=== PATIENT | male | born 1935 | race Caucasian/White ===

== ENCOUNTER 2023-09-16 09:38 | Emergency (ER) | payer OTHER, SELFPAY ==
[2023-09-16 10:03] VITALS: BP 120/75; PULSE 84; RESP 18; TEMP 36.4; O2SAT 97; BMI 32.3
--- NOTE | 2023-09-16 11:05 | ED_ITS ---
HPI - General Adult General Date Seen: 09/16/23 Chief complaint: Cough Stated complaint: Cough-runny nose-sinus headache Time Seen by Provider: 09/16/23 10:02 Source: patient and family Mode of arrival: ambulatory Limitations: no limitations History of Present Illness HPI narrative: Patient is a 88-year-old gentleman who presents ambulatory to the emergency room, with a history of a cough for the last 2-3 days, he has a history of sinusitis, he notes that is right nares drain some clear fluid, this morning. He did have a little bit of blood with that he felt that he had a bit of a sinus headache on the right side, he has not no fevers no chills, he denies any neck pain or stiffness nausea vomiting, or any significant short of breath, did get his him normal immunization series for COVID, but he has not gotten the flu vaccine because of history of [place] barre . Not been taking any [id number] medications, but does have a long history of sinus issues. Dizzy usually gets antibiotics for this, is a [facility], lives in [place] History what sounds like atrial fibrillation, previous cardioversion, psoriasis, previous pituitary adenoma. Diabetes hypertension hyperlipidemia. Appendectomy Related Data Home Medications Medication Instructions Recorded Confirmed Vitamin D 09/16/23 amiodarone 09/16/23 amlodipine 09/16/23 apixaban 09/16/23 atorvastatin 09/16/23 gabapentin 09/16/23 lisinopril 09/16/23 multivitamin 09/16/23 omeprazole 09/16/23 tamsulosin 09/16/23 Allergies Allergy/AdvReac Type Severity Reaction Status Date / Time penicillin G procaine Allergy Mild Rash Verified 09/16/23 10:03 Review of Systems Status of ROS: Reports: 10 or more systems reviewed and unremarkable except as noted in History and below PFSH PFS Social History Smoking Status: Never smoker Non-prescribed substance use: denies use Exam Narrative: Exam Narrative: Patient is seen in room 4, he is in no apparent distress he has normal vital signs. Speaking to me normally pupils equal round reactive to light, there is no scleral icterus redness, nasal mucosa he has a bit of a deviated septum to the right. TMs are normal, oropharynx normal easy respirations chest is clear bilaterally no wheezing crackles noted heart sounds are normal clicks murmurs or gallops, abdomen is soft and obese, he moves all extremities independently well there is no evidence of any rashes, neurologically intact in his upper lower extremities. Const: Vital Signs, click to edit/add: Vital Signs - 24 hr 09/16/23 10:03 09/16/23 12:01 Temperature 97.6 F Pulse Rate [Pulse Oximeter] 84 80 Respiratory Rate 18 18 Blood Pressure [Ri ght Upper Arm] 120/75 Pulse Oximetry 97 97 Oxygen Delivery Me thod Room Air Documenting provider has reviewed patient's vital signs: yes Course Course ED Course: His COVID swab came back positive unfortunately is not a candidate for paxlovid as he has a hard stop with the amiodarone, I discussed with him, at this point he does not want antibiotics, he will just use symptomatic management, knowing that he is positive, for the next 5 days. We went over risks of having COVID, when he should watch out for, he will need to be followed up if you develops shortness of breath, chest pain, leg swelling, or signs of a blood clot also. I think this is unlikely given he is already on apixaban. Vital Signs Vital signs: Initial Vital Signs Respiratory Effort Normal 09/16/23 10:02 Respiratory Depth Normal 09/16/23 10:02 Vital Signs Temperature 97.6 F 09/16/23 10:03 Pulse Rate 84 09/16/23 10:03 Respiratory Rate 18 09/16/23 10:03 Blood Pressure 120/75 09/16/23 10:03 Pulse Oximetry 97 09/16/23 10:03 Oxygen Delivery Method Room Air 09/16/23 10:03 Temperature 97.6 F 09/16/23 10:03 Pulse Rate 80 09/16/23 12:01 Respiratory Rate 18 09/16/23 12:01 Blood Pressure 120/75 09/16/23 10:03 Pulse Oximetry 97 09/16/23 12:01 Oxygen Delivery Method Room Air 09/16/23 10:03 Medical Decision Making [facility] Narrative Medical decision making narrative: Differential diagnosis include a viral upper respiratory illness, histoplasmosis, tuberculosis, pneumonia, COPD exacerbation, emphysema, strep throat illness, bronchitis, asthma, reactive airway disease, chronic cough, medication side effects, allergic rhinitis with postnasal drip, foreign body aspiration, aspiration pneumonia, bronchiolitis, and gastroesophageal reflux disease as well as multiple other considerations. Lab Data Labs: Lab Results 09/16/23 Range/Units 10:12 SARS-CoV-2 (PCR) POSITIVE SARS-CoV-2 A (Negative) Influenza Type A (PCR) Negative PCR FLU A (Negative) Influenza Type B (PCR) Negative PCR FLU B (Negative) RSV (PCR) Negative PCR RSV (Negative) Discharge Plan Discharge Clinical Impression: COVID-19 Patient Disposition: Home, Self-Care Condition: Stable Instructions: COVID-19 (Coronavirus Disease 2019) (ED), COVID-19: Slow the Coronavirus Spread (ED), Face Coverings (Masks) and COVID-19 (ED), How to Recover from COVID-19 at Home (ED), Social Distancing Guidelines for COVID-19 (ED) Additional Instructions: Home rest use of nasal spray, saline Mets, follow-up with primary care if ongoing symptoms, I would suggest following your oxygen saturation, you may buy one of these units, they are approximately 30 dollars ,and come back in if your having low readings less than 90% Activity Level: Light activity Prescriptions: No Action gabapentin atorvastatin amlodipine lisinopril tamsulosin omeprazole amiodarone multivitamin Vitamin D apixaban Follow Up/Referrals: Provider,Not a Local [Primary Care Provider] - Stand Alone Forms: URBANARAth Info Instructions
[2023-09-16 11:10] LABS: PCR FLU A Negative PCR FLU A (Negative); PCR FLU B Negative PCR FLU B (Negative); PCR RSV Negative PCR RSV (Negative); SARS PCR* POSITIVE SARS-CoV-2 (Negative)
[2023-09-16 12:01] VITALS: PULSE 80; RESP 18; O2SAT 97
== END 2023-09-16 13:37 | disposition home or self-care (01) ==
PROVIDERS: Emergency Provider Family Medicine
DX: U07.1 COVID-19 (principal)
CPT/HCPCS: 87631; 99283; 99284

== ENCOUNTER 2024-10-03 11:04 | Emergency (ER) | payer OTHER, SELFPAY ==
[2024-10-03 11:08] VITALS: BP 152/84; PULSE 82; RESP 16; TEMP 36.4; O2SAT 100; BMI 29.2
--- NOTE | 2024-10-03 11:20 | ED.ABDPAIN ---
HPI - Abdominal Pain General Chief Complaint: Abdominal Pain Stated Complaint: Feeling unwell Time Seen by Provider: 10/03/24 11:09 Source: patient, family, RN notes reviewed and old records reviewed Mode of arrival: ambulatory Limitations: no limitations History of Present Illness HPI narrative: 89-year-old male with history of diabetes, atrial fibrillation on anticoagulation who comes in today with abdominal bloating, nausea. Noted that night before last he develops nausea, bloating sensation and felt constipated. No vomiting denies pain but did have sensation of abdominal fullness. He reports having diarrhea all day yesterday, that has resolved. Continued to have nausea overnight and abdominal fullness and decided to come to the emergency department that. Also notes that his son and [id number] live in the house and they are not getting along well, he feels like he is depressed but denies suicide ideation. Has not taken his medications for couple of days because of his nausea. Related Data Home Medications ?Medication ?Instructions ?Recorded ?Confirmed Vitamin D 50 mcg PO 09/16/23 amiodarone 200 mg PO DAILY 09/16/23 10/03/24 amlodipine 10 mg PO DAILY 09/16/23 10/03/24 apixaban 2.5 mg PO .q12 09/16/23 10/03/24 gabapentin 400 mg PO BID 09/16/23 10/03/24 lisinopril 20 mg PO DAILY 09/16/23 10/03/24 multivitamin 09/16/23 tamsulosin 0.4 mg PO DAILY 09/16/23 10/03/24 coenzyme Q10 100 mg capsule 200 mg PO DAILY 10/03/24 10/03/24 (CoQ-10) Allergies Allergy/AdvReac Type Severity Reaction Status Date / Time penicillin G procaine Allergy Mild Rash Verified 10/03/24 12:54 [facility] Social History Smoking Status: Never smoker Non-prescribed substance use: denies use Exam Narrative: Exam Narrative: General: Well-developed and well-nourished, no acute distress Head: Atraumatic and normocephalic Eyes: Pupils are equal reactive, extraocular motions intact, conjunctiva clear ENT: External nose and ears are normal, posterior pharynx without erythema or exudate Neck: No midline cervical tenderness, full spontaneous range of motion the neck, trachea midline, no adenopathy Heart: Regular rate and rhythm, 3/6 systolic murmur Lungs: Clear to auscultation bilaterally without wheezes or crackles Abdomen: Soft, nontender, nondistended with active bowel sounds Musculoskeletal: No tenderness, deformity, or edema Neurologic: Awake, alert, and oriented x3, no gross focal neurologic deficits, cranial nerves intact as tested Psych: Mood and affect are appropriate Skin: No rashes Const: Vital Signs, click to edit/add: Vital Signs - 24 hr 10/03/24 11:08 Temperature 97.6 F Pulse Rate [Pulse Oximeter] 82 Respiratory Rate 16 Blood Pressure [Ri ght Upper Arm] 152/84 H Pulse Oximetry 100 Oxygen Delivery Me thod Room Air Course Course ED Course: Reviewed prior emergency department records from this facility from September 2023 when patient was diagnose COVID-19, otherwise possibly of medical records for this patient in both the [facility] and [facility]. Patient presents today with couple days of nausea, also had some diarrhea although that is resolved, and abdominal fullness. On exam, vital a stable with no abdominal tenderness, hyperactive bowel sounds. Suspect enteritis but cannot completely exclude other intra-abdominal process including colitis or diverticulitis. Labs ordered along with CT scan of the abdomen and pelvis. Reevaluation(s) Time of Reevaluation #1: 13:22 Reevaluation #1: Labs ordered and independently interpreted by me with mild anemia hemoglobin 13.3 but otherwise normal CBC with no leukocytosis, normal basic panel, normal hepatic panel, normal lipase, urinalysis negative, respiratory panel negative. CT of the abdomen pelvis and panel interpreted by me demonstrates gallstones, without evidence of biliary obstruction or acute cholecystitis, no other acute findings in the abdomen. Patient is stable for discharge with Zofran, close follow-up with primary care and with general surgery. Discussed symptom management and dietary recommendations. Vital Signs Vital signs: Initial Vital Signs Temperature 97.6 F 10/03/24 11:08 Temperature Source Temporal Artery Scan 10/03/24 11:08 Pulse Rate 82 10/03/24 11:08 Respiratory Rate 16 10/03/24 11:08 Blood Pressure 152/84 H 10/03/24 11:08 Blood Pressure Mean 106 H 10/03/24 11:08 Blood Pressure Position Sitting 10/03/24 11:08 Pulse Oximetry 100 10/03/24 11:08 Oxygen Delivery Method Room Air 10/03/24 11:08 Vital Signs Temperature 97.6 F 10/03/24 11:08 Pulse Rate 82 10/03/24 11:08 Respiratory Rate 16 10/03/24 11:08 Blood Pressure 152/84 H 10/03/24 11:08 Pulse Oximetry 100 10/03/24 11:08 Oxygen Delivery Method Room Air 10/03/24 11:08 Temperature 97.6 F 10/03/24 11:08 Pulse Rate 82 10/03/24 11:08 Respiratory Rate 16 10/03/24 11:08 Blood Pressure 152/84 H 10/03/24 11:08 Pulse Oximetry 100 10/03/24 11:08 Oxygen Delivery Method Room Air 10/03/24 11:08 Medications Administered Medications: Discontinued Medications Generic Name Dose Route Start Last Admin Trade Name Freq PRN Reason Stop Dose Admin Ondansetron HCl 4 mg 10/03/24 11:35 10/03/24 12:08 Ondansetron 2 Mg/Ml Inj IVP 10/03/24 11:36 4 mg ONCE ONE Administration MDM - Abdominal Pain Lab Data Labs: Lab Results 10/03/24 10/03/24 Range/Units 11:55 12:20 WBC 5.44 (4.50-11.00) K/uL RBC 4.24 L (4.30-5.90) m/uL Hgb 13.3 L (13.5-17.5) gm/dL Hct 40.9 (37.0-53.0) % MCV 97 (80-100) fL MCH 31 (26-34) pg MCHC 33 (32-36) gm/dL RDW Coeff of Simon 13.0 (11.5-15.5) % Plt Count 160 (140-440) K/uL Neut % (Auto) 58.4 (42.0-72.0) % Lymph % (Auto) 26.5 (20-44) % [place] % (Auto) 9.9 (0.0-11.0) % Eos % (Auto) 4.4 (0.0-7.0) % Baso % (Auto) 0.6 (0.0-3.0) % Neut # (Auto) 3.18 (1.7-7.0) K/uL Lymph # (Auto) 1.44 (0.90-2.90) K/uL [place] # (Auto) 0.50 (0.00-0.90) K/UL Eos # (Auto) 0.24 (0.00-0.50) K/uL Baso # (Auto) 0.03 (0.00-0.30) K/uL Abs Immat Gran (auto) 0.01 (0.00-0.30) K/uL Imm/Tot Granulo (auto) 0.2 % Sodium 138 (135-149) mmol/L Potassium 4.0 (3.6-5.1) mmol/L Chloride 104 (96-114) mmol/L Carbon Dioxide 28 (20-32) mmol/L Anion Gap 6 L (7-15) mEq/L BUN 19 (7-30) mg/dL Creatinine 1.5 (0.5-1.5) mg/dL Estimated Creat Clear 33.57 Estimated GFR 45 ml/min Glucose 114 (60-115) mg/dL Calcium 9.1 (8.4-10.6) mg/dL Magnesium 1.8 (1.5-2.6) mg/dL Total Bilirubin 1.1 (0.1-1.5) mg/dL Direct Bilirubin 0.3 (0.0-0.5) mg/dL AST 36 H (12-35) U/L ALT 49 (4-50) U/L Alkaline Phosphatase 87 (40-150) U/L Total Protein 6.9 (6.0-8.3) g/dL Albumin 4.2 (3.3-5.0) g/dL Lipase 51 (23-300) U/L Urine Color Yellow (Yellow) Urine Appearance Clear (Clear) Urine pH 6.5 (5.0-8.5) Ur Specific [place] 1.025 (1.000-1.030) Urine Protein Negative (Negative) Urine Glucose (UA) Negative (Negative) Urine Ketones Negative (Negative) Urine Blood Negative (Negative) Urine Nitrite Negative (Negative) Urine Bilirubin Negative (Negative) Urine Urobilinogen 0.2 (0.2-1.0) Ur Leukocyte Esterase Negative (Negative) Urine RBC 0-2 (0-2) Urine WBC 0-2 (0-5) Ur Squamous Epith Cells None (None-Few) Urine Bacteria None (None) SARS-CoV-2 (PCR) Negative SARS-CoV-2 (Negative) Influenza Type A (PCR) Negative PCR FLU A (Negative) Influenza Type B (PCR) Negative PCR FLU B (Negative) RSV (PCR) Negative PCR RSV (Negative) Discharge Plan Discharge Clinical Impression: Nausea, Abdominal pain, Cholelithiasis, Cirrhosis Patient Disposition: Home, Self-Care Condition: Stable Instructions: Cirrhosis of the Liver (ED), Biliary Colic (ED), Gallstones (ED), Acute Nausea and Vomiting (DC) Additional Instructions: Take medication for nausea as prescribed Liquid diet for 24 hours, then advance as tolerated, avoid fats and oils Follow-up with your primary care doctor in 3-5 days Follow-up with general surgeon to discuss possible gallbladder removal. You can do this through the [place] or at [facility]. [facility]:? [facility]:? [facility]:? [facility]:? Activity Level: Activity as Tolerated Discharge Diet: Full Liquid Prescriptions: No Action gabapentin 400 mg PO BID amlodipine 10 mg PO DAILY lisinopril 20 mg PO DAILY tamsulosin 0.4 mg PO DAILY amiodarone 200 mg PO DAILY multivitamin Vitamin D 50 mcg PO apixaban 2.5 mg PO .q12 coenzyme Q10 [CoQ-10] 100 mg capsule 200 mg PO DAILY Follow Up/Referrals: Provider,Not a Local [Primary Care Provider] - Stand Alone Forms: [place] [employer] Info Instructions
--- NOTE | 2024-10-03 11:35 | CRLHL7_ITS ---
For Patients: As a result of the 21st Century Cures Act, medical imaging exams and procedure reports are released immediately into your electronic medical record. You may view this report before your referring provider. If you have questions, please contact your health care provider. INDICATION: Abdominal pain, not otherwise described. Associated nausea and diarrhea. COMPARISON: None available. TECHNIQUE: CT of the abdomen and pelvis with 94 cc of Isovue 370 intravenous contrast. Please note that all CT scans at this facility use dose modulation, iterative reconstruction, and/or weight-based dosing when appropriate to reduce radiation dose to as low as reasonably achievable. FINDINGS: ABDOMEN Liver: Nodular contour. Prominent caudate lobe. Normal attenuation. Too small to characterize hypodense lesion at the border zone between segments 7 and 8 (series 2; image 33) statistically likely to represent a cyst. No intrahepatic biliary ductal dilatation. Mildly enlarged main portal vein at 16 mm. Patent portal veins. Patent hepatic veins. Gallbladder: Cholelithiasis. No pericholecystic inflammatory changes. Normal common duct caliber. Pancreas: Normal contour and attenuation. No peripancreatic inflammatory changes. No significant focal lesion. Normal main duct caliber. Spleen: Craniocaudad length of the spleen is 12.9 cm consistent with borderline splenomegaly. No significant focal lesion. Patent splenic artery and vein. Adrenal Glands: Symmetrical adrenal glands. No significant focal lesion. Kidneys: Normal bilateral renal attenuation. No significant focal lesion. 11 mm nephrolith in the left renal pelvis (2; 60). No dilatation of the intrarenal collecting systems. No ureteral stone. Nondilated ureters. Patent renal arteries and veins. Gastrointestinal tract: Normal caliber, attenuation and wall thickness of the gastrointestinal tract. Sigmoid diverticulosis without associated inflammatory changes. Unseen appendix without signs of acute appendicitis. Vascular: Chronic aortoiliac atherosclerotic mural calcification. Abdominal aorta and its major proximal branches including the celiac, superior mesenteric, inferior mesenteric, renal, and bilateral common iliac arteries are patent. Patent superior mesenteric vein. Peritoneal Cavity/Retroperitoneum: No ascites. No adenopathy. PELVIS No bladder lesion is identified. The prostate measures 73 mL. No significant ascites. No adenopathy. SKELETON AND BODY WALL Bilateral anterior abdominal wall subcutaneous fat stranding below the level of the umbilicus most likely related to subcutaneously administered injections, for example (series 2; image 118). Please correlate with the patient`s clinical history. Chronic multilevel thoracolumbar spondylosis. L4 anterior superior vertebral body Schmorl`s node. LOWER THORAX Peripheral bilateral posterior basilar segment lower lobe subsegmental bronchiectasis. Nonspecific bibasilar multilobar subpleural reticulation consistent with nonspecific minor fibrosis. Moderate proximal left anterior descending atherosclerotic coronary artery calcification. Small sliding hiatus hernia. IMPRESSION: 1. Nodular liver contour consistent with cirrhosis. Borderline splenomegaly. Mildly enlarged main portal vein. The latter findings are consistent with portal venous hypertension. 2. Cholelithiasis without associated acute inflammatory findings to indicate acute cholecystitis. 3. Sigmoid diverticulosis without associated inflammatory changes. 4. Incidental findings as above. 5. Prostatomegaly. Please note that all CT scans at this facility use dose modulation, iterative reconstruction, and/or weight-based dosing when appropriate to reduce radiation dose to as low as reasonably achievable. Dictated by Dallas eMndosa MD @ 10/03/2024 1:25:15 PM (Electronically Signed)
[2024-10-03 12:03] LABS: Basophils Absolute Auto 0.03 K/uL (0.00-0.30); Basophils Percent Auto 0.6 % (0.0-3.0); Eosinophils Absolute Auto 0.24 K/uL (0.00-0.50); Eosinophils Percent Auto 4.4 % (0.0-7.0); Hematocrit 40.9 % (37.0-53.0); Hemoglobin* 13.3 gm/dL (13.5-17.5); Immature Granulocytes Abs Auto 0.01 K/uL (0.00-0.30); Immature Granulocytes Pct Auto 0.2 %; Lymphocytes Absolute Auto 1.44 K/uL (0.90-2.90); Lymphocytes Percent Auto 26.5 % (20-44); Mean Corpuscular HGB Conc 33 gm/dL (32-36); Mean Corpuscular Hemoglobin 31 pg (26-34); Mean Corpuscular Volume 97 fL (80-100); Monocytes Percent Auto 9.9 % (0.0-11.0); Neutrophils Absolute Auto 3.18 K/uL (1.7-7.0); Neutrophils Percent Auto 58.4 % (42.0-72.0); Platelet Count* 160 K/uL (140-440); Red Blood Count 4.24 m/uL (4.30-5.90); White Blood Count* 5.44 K/uL (4.50-11.00)
[2024-10-03] MEDS: ONDANSETRON 2 MG/ML inj 4 MG IVP (12:08)
[2024-10-03 12:18] LABS: Albumin* 4.2 g/dL (3.3-5.0); Chloride* 104 mmol/L (96-114); Sodium* 138 mmol/L (135-149)
[2024-10-03 12:20] LABS: Anion Gap 6 mEq/L (7-15); Carbon Dioxide* 28 mmol/L (20-32); Creatinine* 1.5 mg/dL (0.5-1.5); Est. Creatinine Clearance* 33.57; Estimated Glomerular Filt Rate 45 ml/min
[2024-10-03 12:21] LABS: Alanine Aminotransferase* 49 U/L (4-50); Alkaline Phosphatase* 87 U/L (40-150); Aspartate Amino Transferase* 36 U/L (12-35); Bilirubin Direct* 0.3 mg/dL (0.0-0.5); Bilirubin Total* 1.1 mg/dL (0.1-1.5); Blood Urea Nitrogen* 19 mg/dL (7-30); Calcium* 9.1 mg/dL (8.4-10.6); Glucose* 114 mg/dL (60-115); Lipase* 51 U/L (23-300); Magnesium* 1.8 mg/dL (1.5-2.6); Total Protein* 6.9 g/dL (6.0-8.3)
[2024-10-03 12:23] LABS: Slide Review Reflex No
[2024-10-03 12:29] LABS: Appearance Urine Clear (Clear); Bilirubin Urine Negative (Negative); Blood Urine Negative (Negative); Color Urine Yellow (Yellow); Glucose Urine Negative (Negative); Ketones Urine Negative (Negative); Leukocyte Esterase Urine Negative (Negative); Nitrite Urine Negative (Negative); Protein Urine Negative (Negative); Specific Gravity Urine 1.025 (1.000-1.030); Urobilinogen Urine 0.2 (0.2-1.0); pH Urine 6.5 (5.0-8.5)
[2024-10-03 12:42] LABS: PCR FLU A Negative PCR FLU A (Negative); PCR FLU B Negative PCR FLU B (Negative); PCR RSV Negative PCR RSV (Negative); SARS PCR* Negative SARS-CoV-2 (Negative)
[2024-10-03 12:59] LABS: RBC Urine 0-2 (0-2); WBC Urine 0-2 (0-5)
== END 2024-10-03 14:35 | disposition home or self-care (01) ==
PROVIDERS: Emergency Provider Family Medicine
DX: R11.0 Nausea (principal); R10.9 Unspecified abdominal pain; K80.20 Calculus of gallbladder without cholecystitis without obstruction; K74.60 Unspecified cirrhosis of liver
CPT/HCPCS: 36415; 74177; 80048; 80076; 81001; 83690; 83735; 85025; 87631; 96374; 99284; 99285; J2405; Q9967

== ENCOUNTER 2025-04-22 10:49 | Emergency (ER) | payer OTHER, SELFPAY ==
--- OUTSIDE RECORDS SUMMARY | 2024-05-05 08:20 | XMS_ITS | Encounter Summary ---
Author Name [facility] [place] [facility] [place] [facility] [facility] [place] Address [address] [place] [address] Care Team Providers Care Examination Scorer Name Role Phone EUDIN SLATER Primary Care Provider BOBBY Bernabe Unavailable Unavailable Insurance Providers: All historical and current Section Date Range: From patient's date of to the date document was created. This section includes the names of all active insurance providers for the patient. Insurance Provider Type of Coverage Plan Name Start of Policy Coverage End of Policy Coverage Group Number Member ID Insurance Provider's Telephone Number Policy Jolley's Name Patient's Relationship to Policy Jolley MEDICARE (WNR) MEDICARE ([place]) PART B Feb 14, 2002 PART B [id number] [phone] KRISTAMAGY ERT PATIENT MEDICARE (WNR) MEDICARE (M) PART B Feb 14, 2002 PART B [id number] [phone] KRISTAMAGY ERT PATIENT MEDICARE (WNR) MEDICARE (M) PART A Feb 15, 1992 PART A [id number] [phone] KRISTAMAGY ERT PATIENT MEDICARE (WNR) MEDICARE (M) PART A Feb 15, 1992 PART A [id number] [phone] KRISTA,MAGY ERT PATIENT Selected Encounter This section includes the information on record at [place] for the Encounter. Date/Time Encounter Type Encounter Description Reason Provider Source May 05, 2024 01:20 PM OFFICE O/P EST HI 40 MIN CARDIOLOGY ICD-10-CM I48.0 Paroxysmal atrial fibrillation OLIVERIOA R,Y S IHE Encounter Template Text not used by [place] Assessments - Encounter Diagnoses This section includes the primary and secondary diagnoses documented for the Encounter. Date/Time Primary/Secondary Diagnosis Diagnosis Name Provider Source May 05, 2024 01:44 PM PRIMARY Paroxysmal atrial fibrillation OLIVERIOA R,Y S [facility] May 05, 2024 01:44 PM SECONDARY Essential (primary) hypertension OLIVERIOA R,Y S [facility] May 05, 2024 01:44 PM SECONDARY Morbid (severe) obesity due to excess calories [facility] May 05, 2024 01:44 PM SECONDARY Type 2 diabetes mellitus with hyperglycemia [facility] Plan of Treatment: Future Appointments (+ 6 months) and Future Tests (+/- 45 days) The Plan of Treatment section includes future care activities for the [facility] [place] [facility] This section includes future appointments and future orders which are active, pending or scheduled. Future Appointments This section includes appointments that were scheduled to occur 6 months from the date of the Encounter, up to a maximum of 20 appointments. The data comes from all [place] treatment facilities. Appointment Date/Time Appointment Type Appointme nt Facility Name Jun 02, 2024 10:40 AM AMBULATORY - NONE [facility] Jun 09, 2024 10:45 AM AMBULATORY - SURGERY [facility] Jun 09, 2024 12:15 PM AMBULATORY - MEDICINE [facility] Jun 11, 2024 10:00 AM AMBULATORY - MEDICINE [facility] Jun 27, 2024 11:45 AM AMBULATORY - MEDICINE [facility] Jul 14, 2024 10:45 AM AMBULATORY - SURGERY [facility] Jul 14, 2024 03:20 [facility] Sep 11, 2024 03:00 PM [facility]BUL[facility] - SURGERY [facility] Oct 05, 2024 04:37 PM AMBULATORY - NONE [facility] Oct 13, 2024 11:00 [facility] Lab Results: +/- 30 days of the encounter This section includes the Chemistry and Hematology Lab Results on record with [place] for the patient. Radiology Reports and Pathology Reports are provided separately, in subsequent sections. Lab Results This section contains the Chemistry/Hematology Results that were resulted 30 days before or 30 daysafter the date of the Encounter. Date/Time Source Result Type Result - Unit Interpretation Reference Range Specimen Type Comment Apr 21, 2024 10:35 AM [facility] URINALYSIS URINE Specimen Type: URINE No comment entered. Ordering Provider: ANUEL CURRAN Report Released Date/Time: Apr 21, 2024 10:39 AM Reporting Lab: [facility] [id number] Performing Lab: [facility] [id number] URINE COLOR LIGHT-YELLOW SPECIFIC GRAVITY 1.028 1.003-1.035 URINE BILIRUBIN NEGATIVE NEGATIVE URINE KETONES NEGATIVE NEGATIVE URINE GLUCOSE NEGATIVE mg/dL URINE PROTEIN 10 mg/dL URINE PH 5.5 5.0-8.0 URINE WBC/HPF 20 /[HPF] H 0-7 URINE BACTERIA NONE SEEN URINE RBC/HPF 8 /[HPF] H 0-3 APPEARANCE CLEAR SQUAMOUS EPITHELIAL NONE SEEN /[HPF] URINE BLOOD NEGATIVE NEGATIVE URINE NITRITE NEGATIVE NEGATIVE LEUKOCYTE ESTERASE 500 NEGATIVE Vital Signs: All taken on the encounter date This section contains inpatient and outpatient Vital Signs collected on the date of the Encounter. Date/Time Temperature Pulse Blood Pressure Respiratory Rate SP02 Pain Height Weight Body Mass Index Source May 05, 2024 01:20 PM 97.5 85 133/70 16 99 0 205.7 34 [place] [facility] Social History: Smoking Status (Most current) and Tobacco Use (All prior to encounter date) This section includes the most current, and the historical, smoking and tobacco- related health factors from the [place] facility where the Encounter took place. Current Smoking Status This section includes the most current smoking, or tobacco-related health factor, from the [place] facility where the Encounter took place. Date/Time Current Smoking Status Comment Billie ity Nov 19, 2023 11:00 AM VA-TOBACCO NEVER USED [facility] Tobacco Use History This section includes a history of the smoking, or tobacco-related health factors, that were collected on or before the date of the Encounter. The data comes from the [place] facility where the Encounter took place. Date/Time Smoking Status/Tobacco Use Comment F acility Oct 09, 2022 11:00 AM VA-TOBACCO NEVER USED [facility] Sep 14, 2021 11:00 AM VA-TOBACCO NEVER USED [facility] Sep 01, 2020 10:30 AM VA-TOBACCO NEVER USED [facility] February 05, 2019 02:57 PM INPT NO TOBACCO USE IN LAST 30 D AYS [facility] February 05, 2019 09:33 AM VA-TOBACCO NEVER USED [facility] Dec 19, 2017 04:35 PM LIFETIME NON-TOBACCO USER [facility] Jul 30, 2017 01:03 PM INPT NO TOBACCO USE IN LAST 30 D AYS [facility] Dec 13, 2016 09:35 AM LIFETIME NON-TOBACCO USER [facility] Dec 08, 2015 12:12 PM LIFETIME NON-TOBACCO USER [facility] Dec 30, 2014 01:48 PM LIFETIME NON-TOBACCO USER [facility] Dec 31, 2013 01:19 PM LIFETIME NON-TOBACCO USER [facility] Oct 17, 2006 01:30 PM LIFETIME NON-TOBACCO USER [facility] Advance Directives: All historical and current Section Date Range: From patient's date of to the date document was created. This section includes ALL of a patient's completed or amended [place] Advance and Rescinded Directives. The entries below indicate that a directive exists for the patient, but an actual copy is not included with this document. The data comes from all [facility]. Date Advance Directives Provider Source Aug 04, 2017 CLINICAL WARNING WIL DAVIS [facility] Jul 31, 2017 ADVANCE DIRECTIVE DISCUSSION ARNOLDO LUNDBERG [facility] Nov 09, 2003 ADVANCE DIRECTIVE SHARDA [facility] Radiology Reports: +/- 30 days of the encounter Radiology Reports For cases when an order for radiology services may have been completed prior to the date of the Encounter, the report list includes the Radiology Reports that were completed up to 30 days before dateof the Encounter. For cases when an order for radiology services may have been completed after the date of the Encounter, the report list also includes the Radiology Reports that were completed up to30 days after date of the Encounter. The data comes from all [place] treatment facilities. Date/Time Radiology Report Provider Source Jun 02, 2024 11:22 AM MRI-L-SPINE (P): KRISTAGRIS JORGE BRODERICK [id number] -[id number] M Exm Date: JUN 02, 2024@11:22 Req Phys: PAIDIN,BULMARO E Pat Loc: [facility] PAIN PAIDIN (Req'g Loc) Img Loc: OUTSOURCE MRI Service: Unknown (Case [id number] COMPLETE) MRI SPINE LUMBAR W/O CONTRAST (MRI Detailed) CPT:25679 Reason for Study: evaluate for lower lumbar/sacral nerve root compression Clinical History: Per Joint Commission Standards, by signing this diagnostic imaging request the ordering provider confirms they have considered patients age and recent imaging history. pain into b/l calves. pls evaluate for lower lumbosacral nerve root compression. Responsible provider name and phone number to notify for critical findings if other than user placing the order and pager listed below: User placing orders pager: [phone] paidin LAST CREATININE 1.5 H (11/19/23) Allergies: PENICILLIN (2008) EMPAGLIFLOZIN (Aug 21, 2022) Report Status: Electronically Filed Date Reported: JUN 15, 2024 Report: This is an outside Imaging study and/or report imported for continuity of patient care. This Imaging study and/or report was not reviewed or verified by a [place] Radiologist. Impression: This is an outside Imaging study and/or report imported for continuity of patient care. This Imaging study and/or report was not reviewed or verified by a [place] Radiologist. Primary Diagnostic Code: VERIFIED BY: / *ELECTRONICALLY FILED* [facility] Pathology Reports: +/- 30 days of the encounter Pathology Reports For cases when an order for pathology services may have been completed prior to the date of the Encounter, the report list includes the Pathology Reports that were completed up to 30 days before dateof the Encounter. For cases when an order for pathology services may have been completed after the date of the Encounter, the report list also includes the Pathology Reports that were completed up to30 days after date of the Encounter. The data comes from all [place] treatment facilities. Date/Time Pathology Report Provider Source Apr 21, 2024 10:35 AM LR MICROBIOLOGY RE PORT: Reporting Lab: [facility] [CLIA# [id number]] [place] [address] Accession [UID]: [id number] [[id number]] Received: Apr 21, 2024@11:06 Collection sample: URINE Collection date: Apr 21, 2024 10:35 Provider: ANUEL CURRAN Comment on specimen: RECEIVED IN STERILE CUP Test(s) ordered: CULTURE & SUSCEPTIBILITY...... completed: Apr 22, 2024 * BACTERIOLOGY FINAL REPORT => Apr 22, 2024 10:07 TECH CODE: [id number] CULTURE RESULTS: LESS THAN 10,000 CFU/ML Bacteriology Remark(s): THIS REPORT IS FINAL =--=--=--=--=--=--=--=--=--=--=--=- -=--=--=--=--=--=--=--=--=--=--=--= --=--=-- Performing Laboratory: Bacteriology Report Performed By: [facility] [CLIA# [id number]] [place] [address] [facility] Encounter Notes: All associated encounter notes This section contains the clinical notes associated to the Encounter. Date/Time Encounter Note(s) Provider Source May 05, 2024 01:25 PM CARDIOLOGY ATTENDING OUTPATIENT NOTE: LOCAL TITLE: CARDIOLOGY CLINIC NOTE STANDARD TITLE: CARDIOLOGY ATTENDING OUTPATIENT NOTE DATE OF NOTE: MAY 05, 2024@13:25 ENTRY DATE: MAY 04, 2024@15:26:42 AUTHOR: Polina YAÑEZ EXP COSIGNER: URGENCY: STATUS: COMPLETED SUBJECT: Cardiac/Dysrhythmia Clinic Note I have seen and evaluated Mr. Velasco in the clinic and have reviewed his history, symptoms, labs, medications, progress so far and have discussed his care plans with him. Nurses Notes Reviewed and Agree He is here for yearly follow up for AF (s/p DCCV. hx of HLD, anxiety, HTN, obesity, DM, CKD and hx of nonfunctioning pituitary macroadenoma s/p resection 2006. Hx of AFL with RVR that needed cardioversion to NSR in 2019 - He was asymptomatic and AF was detected incidentally and he did not feel particularly different post DCCV either. Was doing well with no symptoms for the last 2 years - was active, could walk his dog and play with his granddaughter without any chest pain, sob or dizzinesss. 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 Has not taken it recently and will be seeing his primary MD today to talk about substituting the drug. No major changes since last visit except he is in symptomatic AF with controlled HR. He is NYHA III (limited by balance and arthritis) - think he cannot walk from the parking lot to the clinic like last year. However, he is without angina, SOB or syncope. Echo 02/01 1. Left ventricular ejection fraction is 50 to 55%. 2. Mild concentric left ventricular hypertrophy. 3. Normal right ventricular size and systolic function. 4. Mildly to moderately dilated left atrium. 5. Mild to moderate aortic valve sclerosis/calcification without any evidence of aortic stenosis. 6. Supraventricular tachycardia (likely atrial flutter) noted, with rapid ventricular rate. 03/04/2019 - Normal Spirometry. Diffusing Capacity: Normal. Did not have them during COVID - test pending from today HEMOGLOBIN A1C 6.2 H Allergies: PENICILLIN (2008) EMPAGLIFLOZIN (Aug 21, 2022) Medications: Active Outpatient Medications (including Supplies): ACCU-CHEK GUIDE (GLUCOSE) TEST STRIP USE 1 STRIP FOUR ACTIVE TIMES A DAY TO CHECK BLOOD SUGAR--USE WITHIN 3 MINUTES OF REMOVING FROM CONTAINER AMIODARONE HCL (PACERONE) 200MG TAB TAKE ONE TABLET BY ACTIVE MOUTH EVERY DAY INDEFINITELY FOR AFIB AMLODIPINE BESYLATE 10MG TAB TAKE ONE TABLET BY MOUTH ACTIVE EVERY DAY FOR BLOOD PRESSURE. APIXABAN 2.5MG TAB TAKE ONE TABLET BY MOUTH EVERY 12 HOURS ACTIVE TO PREVENT BLOOD CLOTS/STROKES ARTIFICIAL TEARS PVA 1.4%/POVIDONE (PF) INSTILL 1 DROP IN ACTIVE BOTH EYES SIX TIMES A DAY FOR DRY EYES ATORVASTATIN CALCIUM 40MG TAB TAKE ONE TABLET BY MOUTH AT ACTIVE (S) BEDTIME FOR CHOLESTEROL CARBOXYMETHYLCELLULOSE NA 0.5% OPH SOLN INSTILL 1 DROP IN ACTIVE BOTH EYES FOUR TIMES A DAY NEEDED FOR DRY EYES CEFDINIR 300MG CAP TAKE ONE CAPSULE BY MOUTH TWICE A DAY ACTIVE FOR UTI CLOTRIMAZOLE 1% TOP CREAM APPLY THIN LAYER TOPICALLY TWICE ACTIVE A DAY FOR RASH GABAPENTIN 400MG CAP TAKE ONE CAPSULE BY MOUTH TWICE A DAY ACTIVE FOR NEUROPATHIC PAIN INSULIN,GLARGINE-YFGN 100UNIT/ML PEN 3ML INJECT 22 UNITS ACTIVE UNDER THE SKIN EVERY DAY FOR DIABETES LISINOPRIL 20MG TAB TAKE ONE TABLET BY MOUTH EVERY DAY FOR ACTIVE HIGH BLOOD PRESSURE. OMEPRAZOLE 20MG EC CAP TAKE ONE CAPSULE BY MOUTH EVERY DAY ACTIVE ON AN EMPTY STOMACH, AT LEAST 30 MINUTES PRIOR TO A MEAL FOR ESTEBAN'S ESOPHAGUS TAMSULOSIN HCL 0.4MG CAP TAKE ONE CAPSULE BY MOUTH EVERY ACTIVE DAY TESTOSTERONE 1.62% 20.25MG/PUMP TOP GEL APPLY 2 PUMPS ACTIVE TOPICALLY ONCE A DAY FOR LOW TESTOTERONE Non-VA ACETAMINOPHEN 325MG TAB 650MG MOUTH NEEDED ACTIVE Non-VA BETA SITOSTEROL CAP/TAB 3 MOUTH EVERY DAY ACTIVE Non-VA CALCIUM CARBONATE TAB 3-4 TABLETS MOUTH EVERY DAY ACTIVE NEEDED Non-VA CHONDROITIN/GLUCOSAMINE CAP/TAB MOUTH EVERY DAY ACTIVE Non-VA CINNAMON CAP/TAB EVERY DAY ACTIVE Non-VA LORATADINE 10MG TAB 10MG MOUTH NEEDED ACTIVE Non-VA MULTIVITAMIN CAP/TAB 1 TABLET MOUTH EVERY DAY ACTIVE Non-VA SODIUM CHLORIDE 0.65% SOLN,SPRAY,NASAL QD EACH ACTIVE NOSTRIL EVERY DAY NEEDED Non-VA TURMERIC CAP/TAB 1 TAB MOUTH EVERY DAY ACTIVE PHYSICAL EXAM: Vital Signs: Blood Pressure: 133/70 (05/05/2024 13:20) Pulse: 85 (05/05/2024 13:20) Respiration: 16 (05/05/2024 13:20) Temperature: 97.5 F [36.4 C] (05/05/2024 13:20) Weight: 205.7 lb [93.30 kg] (05/05/2024 13:20) Height: 65.75 in [167.0 cm] (11/19/2023 11:20) BMI: 33.5 O2 Sat: 99% (05/05/2024 13:20) Pain: 0 (05/05/2024 13:20) Physical Exam: Mildly overweight individual (was 250 lb at one time but now is 206, clothes size is 40 now from 44 before) - is planning to get to 180 if possible with ex and diet. Good vitals and looks comfortable at rest. No clinical CHF - JVP is normal and 1-2+ pedal edema (same as before). Carotid pulses are within normal limits. [facility] as noted [facility]) without a diminished pulse and no s3. Chest is clear. Echo: None recently. LABS: SMA-7: SODIUM 137 (11/19/23) POTASSIUM 4.4 (11/19/23) CHLORIDE 106 (11/19/23) CO2 24 (11/19/23) UREA NITROGEN 24 (11/19/23) CREATININE 1.5 H (11/19/23) GLUCOSE 140 H (11/19/23) CBC: HGB: 12.7 (04/23/23) 12.6 (11/19/23) PLT: 131 (04/23/23) 151 (11/19/23) WBC: 5.55 (04/23/23) 7.26 (11/19/23) Lipids: CHOLESTEROL 109 (11/19/23) HDL 42 (11/19/23) LDL CALCULATION 51 (11/19/23) Liver function tests: SGOT 30 (11/19/23)SGPT 34 (11/19/23) TSH 0.85 (11/19/23) PFT OK in 02/2019 Assessment: 87 yr old male followed up for hx of AF - in NSR with out any new symptoms - can walk for usual activities (with a cane - goes to an ex facility 3 times a week) and is limited by his back. 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 On Amio (low dose) - LFT and TSH is OK - will ask for another PFT (ordered for Jun 09). No angina, SOB or dizziness. Happy with his health right now except for back pain - has some procedures planned for it. Drove himself but often is dependent on his son for mobility. Compliant with meds. Risk fctors are good (LDL is OK, BP is good). [facility] health maintenance issues including DM. He can follow up in primary care as planned and see me in 1 year. I discussed the results of this visit and what they mean, we talked about the natural history of his disease and precautions he needs to take. He knows how to reach us and will call in case of new symptoms or signs that concern him like chest pain, dizziness or SOB. He has adequate supply of meds and knows how to take them. He is OK with this plan. A total of 60 minutes were spent in evaluating the records, seeing and examining him/her, care coordination including ordering further testing/consults, counseling and documentation. Education on Treatment Plan: Patient indicates readiness to learn, verbalizes understanding, agreement and satisfaction with the treatment plan. Denies further questions. Patient indicates readiness to learn and has been instructed on action, dose, frequency, and side effects of medications. Patient verbalizes understanding. The medication list above was reviewed with the patient at today's visit. I have indicated discrepancies under each medication that is not being taken as prescribed. I have updated the medicines under the med tab as appropriate. _ /es/ Y S MD OTILIO STAFF ETHYLBENZENE OXIDIZER Signed: 05/05/2024 13:44 Polina YAÑEZ [facility] May 05, 2024 01:21 PM INTERNAL MEDICINE OUTPATIENT NOTE: LOCAL TITLE: MEDICINE CLINIC NURSING NOTE STANDARD TITLE: INTERNAL MEDICINE OUTPATIENT NOTE DATE OF NOTE: MAY 05, 2024@13:21 ENTRY DATE: MAY 05, 2024@13:21:49 AUTHOR: AYDE DAVIS EXP COSIGNER: URGENCY: STATUS: COMPLETED TYPE OF VISIT: Appointment Check In Type of appointment: In-person appointment REASON FOR VISIT: Scheduled clinic visit ALLERGIES: PENICILLIN (2008) EMPAGLIFLOZIN (Aug 21, 2022) VITAL SIGNS: Blood Pressure: 133/70 (05/05/2024 13:20) Pulse: 85 (05/05/2024 13:20) Respiration: 16 (05/05/2024 13:20) Temperature: 97.5 F [36.4 C] (05/05/2024 13:20) Weight: 205.7 lb [93.30 kg] (05/05/2024 13:20) Height: 65.75 in [167.0 cm] (11/19/2023 11:20) BMI: 33.5 O2 Sat: 99% (05/05/2024 13:20) Pain: 0 (05/05/2024 13:20) PAIN SCREEN: Patient is not having significant pain that they wish to discuss with their provider today. MEDICATION Over the Counter/Herbal Medications: The patient states that they take some outside medications and/or herbals. /dino/ AYDE DAVIS LPN Licensed Practical Nurse Signed: 05/05/2024 13:22 AYDE DAVIS [facility]
--- OUTSIDE RECORDS SUMMARY | 2024-06-09 05:45 | XMS_ITS | Encounter Summary ---
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 Date/Time Encounter Type Encounter Description Reason Provider Source Jun 09, 2024 10:45 AM HEARING AID FITTING/CHECKING AUDIOLOGY ICD-10-CM Z01.118 Encntr for exam of ears and hearing w oth abnormal findings GRACESARAH TYLER Dasilva Zuhair Encounter Template Text not used by [place] Assessments - Encounter Diagnoses This section includes the primary and secondary diagnoses documented for the Encounter. Date/Time Primary/Secondary Diagnosis Diagnosis Name Provider Source Jun 09, 2024 03:39 PM PRIMARY Encntr for exam of ears and hearing w oth abnormal findings MELL EDWARDSAMANDA Dasilva [facility] Jun 09, 2024 03:39 PM SECONDARY Encounter for fitting and adjustment of hearing aid MELL EDWARDSAMANDA Dasilva [facility] Jun 09, 2024 03:39 PM SECONDARY Sensorineural hearing loss, bilateral MELL EDWARDSAMANDA [facility] Jun 09, 2024 03:39 PM SECONDARY Tinnitus, bilateral [facility] Plan of Treatment: Future Appointments (+ 6 months) and Future Tests (+/- 45 days) The Plan of Treatment section includes future care activities for the patient [facility] [place] [facility] This section includes future appointments and future orders which are active, pending or scheduled. Future Appointments This section includes appointments that were scheduled to occur 6 months from the date of the Encounter, up to a maximum of 20 appointments. The data comes from all [place] treatment facilities. Appointment Date/Time Appointment Type Appointme nt Facility Name Jun 11, 2024 10:00 AM [facility] Jun 27, 2024 11:45 AM AMBULATORY - MEDICINE [facility] Jul 14, 2024 10:45 AM AMBULATORY - SURGERY [facility] Jul 14, 2024 03:20 PM AMBULATORY - REHAB MEDICIN [facility] Sep 11, 2024 03:00 PM AMBULATORY - SURGERY [facility] Oct 05, 2024 04:37 PM AMBULATORY - NONE [facility] Oct 13, 2024 11:00 AM AMBULATORY - REHAB MEDICIN [facility] Nov 16, 2024 01:00 PM AMBULATORY - NONE [facility] Nov 16, 2024 02:00 PM [facility] Dec 01, 2024 02:40 PM AMBULATORY - SURGERY [facility] Dec 01, 2024 03:00 PM AMBULATORY - SURGERY [facility] Lab Results: +/- 30 days of the encounter This section includes the Chemistry and Hematology Lab Results on record with [facility] for the patient. Radiology Reports and Pathology Reports are provided separately, in subsequent sections. Lab Results This section contains the Chemistry/Hematology Results that were resulted 30 days before or 30 daysafter the date of the Encounter. Date/Time Source Result Type Result - Unit Interpretation Reference Range Specimen Type Comment Jun 27, 2024 01:51 PM [facility] COVID-19 DIAGNOSTIC PANEL (BIOFIRE) NASOPHARYNG EAL Specimen Type: NASOPHARYNGEAL Comment: Biofire Torch (943) Ordering Provider: VINCE VUONG Report Released Date/Time: Jun 27, 2024 01:34 PM Reporting Lab: [facility] [id number] Performing Lab: [facility] [address] C PNEUMONIAE PCR NOT DETECTED NOT DETECT ED M PNEUMONIAE PCR NOT DETECTED NOT DETECT ED ADENOVIRUS-PCR NOT DETECTED NOT DETECTED H METAPNEUMOVIR PCR NOT DETECTED NOT DET ECTED H RHIN/ENTEROVIR PCR NOT DETECTED NOT DE TECTED INFLUENZA A PCR NOT DETECTED NOT DETECTE D INFLUENZA B PCR NOT DETECTED NOT DETECTE D RSV PCR NOT DETECTED NOT DETECTED CORONAVIRUS 229E PCR NOT DETECTED NOT DE TECTED CORONAVIRUS HKU1 PCR NOT DETECTED NOT DE TECTED CORONAVIRUS NL63 PCR DETECTED H NOT DETECT ED CORONAVIRUS OC43 PCR NOT DETECTED NOT DE TECTED PARAINFLUENZA V1 PCR NOT DETECTED NOT DE TECTED PARAINFLUENZA V2 PCR NOT DETECTED NOT DE TECTED PARAINFLUENZA V3 PCR NOT DETECTED NOT DE TECTED PARAINFLUENZA V4 PCR NOT DETECTED NOT DE TECTED B PARAPERTUS([id number]) NOT DETECTED NOT DE TECTED B PERTUSSIS(PTXP) NOT DETECTED NOT DETEC [facility] Nucleic a vipul of specified pathogen(s) IDENTIFIED COVID-19 DIAG (BIOF) NOT DETECTED NOT DE TECTED Jun 09, 2024 12:37 PM [facility] FREE-T4 PLASMA Specimen Type: PLASMA No comment entered. Ordering Provider: RICHARD SIERRA Report Released Date/Time: Jun 03, 2023 11:27 AM Reporting Lab: [facility] [address] Performing Lab: [facility] [address] FREE T4 1.07 ng/dL 0.70-1.48 Jun 09, 2024 12:37 PM [facility] PROLACTIN PLASMA Specimen Type: PLASMA No comment entered. Ordering Provider: RICHARD SIERRA Report Released Date/Time: Jun 03, 2023 11:27 AM Reporting Lab: [facility] [address] Performing Lab: [facility] [address] PROLACTIN 10.78 ng/mL <19.40 Jun 09, 2024 12:37 PM [facility] TESTOSTERONE SERUM Specimen Type : SERUM No comment entered. Ordering Provider: RICHARD SIERRA Report Released Date/Time: Jun 03, 2023 11:27 AM Reporting Lab: [facility] [address] Performing Lab: [facility] [address] TESTOSTERONE 349 ng/dL 221-870 Jun 09, 2024 12:37 PM [facility] TSH W/REFLEX TO FREE T4 PLASMA Spec imen Type: PLASMA No comment entered. Ordering Provider: RICHARD SIERRA Report Released Date/Time: Jun 03, 2023 11:27 AM Reporting Lab: [facility] [address] Performing Lab: [facility] [address] TSH 1.42 u[IU]/mL 0.35-4.94 FREE T4 1.07 ng/dL 0.70-1.48 Social History: Smoking Status (Most current) and Tobacco Use (All prior to encounter date) This section includes the most current, and the historical, smoking and tobacco- related health factors from the [place] facility where the Encounter took place. Current Smoking Status This section includes the most current smoking, or tobacco-related health factor, from the [place] facility where the Encounter took place. Date/Time Current Smoking Status Comment Billie modi Nov 19, 2023 11:00 AM [place]-TOBACCO NEVER USED [facility] Tobacco Use History This section includes a history of the smoking, or tobacco-related health factors, that were collected on or before the date of the Encounter. The data comes from the [place] facility where the Encounter took place. Date/Time Smoking Status/Tobacco Use Comment F [email or web address] Oct 09, 2022 11:00 AM [facility]-TOBACCO NEVER USED [facility] Sep 14, 2021 11:00 AM VA-TOBACCO NEVER USED [facility] Sep 01, 2020 10:30 AM VA-TOBACCO NEVER USED [facility] February 05, 2019 02:57 PM INPT NO TOBACCO USE IN LAST 30 D AYS [facility] February 05, 2019 09:33 AM VA-TOBACCO NEVER USED [facility] Dec 19, 2017 04:35 PM LIFETIME NON-TOBACCO USER [facility] Jul 30, 2017 01:03 PM INPT NO TOBACCO USE IN LAST 30 D AYS [facility] Dec 13, 2016 09:35 AM LIFETIME NON-TOBACCO USER [facility] Dec 08, 2015 12:12 PM LIFETIME NON-TOBACCO USER [facility] Dec 30, 2014 01:48 PM LIFETIME NON-TOBACCO USER [facility] Dec 31, 2013 01:19 PM LIFETIME NON-TOBACCO USER [facility] Oct 17, 2006 01:30 PM LIFETIME NON-TOBACCO USER [facility] Advance Directives: All historical and current Section Date Range: From patient's date of to the date document was created. This section includes ALL of a patient's completed or amended [place] Advance and Rescinded Directives. The entries below indicate that a directive exists for the patient, but an actual copy is not included with this document. The data comes from all [facility]. Date Advance Directives Provider Source Aug 04, 2017 CLINICAL WARNING WIL [facility] Jul 31, 2017 ADVANCE DIRECTIVE DISCUSSION ARNOLDO LUNDBERG [facility] Nov 09, 2003 ADVANCE DIRECTIVE SHARDA STANLEY [facility] Radiology Reports: +/- 30 days [...] the Encounter. The data comes from all [place] treatment facilities. Date/Time Radiology Report Provider Source Jun 02, 2024 11:22 AM MRI-L-SPINE (P): GRIS VELASCO [id number] -[phone] M Exm Date: JUN 02, 2024@11:22 Req Phys: PAIDIN,BULMARO E Pat Loc: [facility] PAIN PAIDIN (Req'g Loc) Img Loc: OUTSOURCE MRI Service: Unknown (Case [id number] COMPLETE) MRI SPINE LUMBAR W/O CONTRAST (MRI Detailed) CPT:23430 Reason for Study: evaluate for lower lumbar/sacral [...] pager listed below: User placing orders pager: [phone] paidin LAST CREATININE 1.5 H (11/19/23) Allergies: PENICILLIN (2008) EMPAGLIFLOZIN (Aug 21, 2022) Report Status: Electronically Filed Date Reported: JUN 15, 2024 Report: This is an outside Imaging study and/or report imported for continuity of patient care. This Imaging study and/or report was not reviewed or verified by a [place] Radiologist. Impression: This is an outside Imaging study and/or report imported for continuity of patient care. This Imaging study and/or report was not reviewed or verified by a [place] Radiologist. Primary Diagnostic Code: VERIFIED BY: / *ELECTRONICALLY FILED* [facility] Encounter Notes: All associated encounter notes This section contains the clinical notes associated to the Encounter. Date/Time Encounter Note(s) Provider Source Jun 09, 2024 07:30 AM AUDIOLOGY NOTE: LOCAL TITLE: AUDIOLOGY CLINIC NOTE STANDARD TITLE: AUDIOLOGY NOTE DATE OF NOTE: JUN 09, 2024@07:30 ENTRY DATE: JUN 09, 2024@07:30:28 AUTHOR: MARY ELLEN EDWARDS COSIGNER: URGENCY: STATUS: COMPLETED SUBJECT: HEARING EVALUATION DIAGNOSIS: BILATERAL SENSORINEURAL HEARING LOSS, BILATERAL TINNITUS REASON FOR VISIT: THERAPEUTIC: HEARING AID EVALUATION, 60 minutes. was seen in this clinic today for a hearing evaluation. is NOT Service Connected for Hearing Loss/Tinnitus. Davenport was unaccompanied today. SUBJECTIVE/HISTORY: Davenport presented today for an updated hewaring evaluation and to pursue new hearing aids. He noted that his newest set of aids (from 2018) work intermittently. He has thus only been wearing his back-up right aid (as the left aid's slim tube broke off). Cari feels his hearing has gradually diminished. He has bilateral tinnitus. He denied vertig, otalgia, and aural drainage, but noted occasional aural fullness that improves (as does his hearing) when he pops his ears. Cari also noted occasional imbalance. He was utilizing a cane today. Cari currently wears the follow hearing aids, right/left, fit 02/01/2018: Make: Perez Model: [employer] IQ I2400 microRIC 312 T Style: [facility] Serial #s: [id number] Acoustics: 4-50, customs Back-up Aids, right/left, issued 10/27/2011: [employer] ePrint M UZ BTE (SNs: [id number]) w/ Tubetttubes OBJECTIVE/PROCEDURES: AUDIOMETRICS: Air conduction, Bone conduction, Speech testing Transducer: Circumaural headphones Reliability: Good *See results via Audiogram display under Tools->Audiology->ROES or see [facility] database. OTOSCOPY: Right: minimal non-occluding cerumen and normal appearing tympanic membrane. Left: minimal non-occluding cerumen and normal appearing tympanic membrane. TYMPANOMETRY: RIGHT EAR: Type A Pressure: Normal Compliance: Normal Volume: Normal LEFT EAR: Type A Pressure: Normal Compliance: Normal Volume: Normal SPEECH RECOGNITION THRESHOLD (SRT): Spondees Right: 45 dB HL Left: 50 dB HL Pure tone results were consistent with speech medical receptionist biller thresholds. WORD RECOGNITION: Recorded/W-22 word list Right Ear: 56% Level: 85* dB Left Ear: 36% Level: 85* dB SUMMARY: Hearing has changed when compared to the previous evaluation completed (here) on 09/11/2011. Specifically, pure tone thresholds for the right ear have decreased by 15-20 dB HL for 250, 500, and 7606-6153 Hz, and by 15-30 dB HL for 500-8000 Hz. RIGHT EAR: Mild sloping to profound sensorineural hearing loss. Word recognition ability rated as poor. Type A tympanogram consistent with normal tympanic membrane/middle ear mobility. LEFT EAR: Mild sloping to profound sensorineural hearing loss. Word recognition ability rated as very poor. Type A tympanogram consistent with normal tympanic membrane/middle ear mobility. ACTION/AMPLIFICATION: - remains a good candidate for hearing aid use. - was counseled on their type, degree and configuration of hearing loss. - Different styles/technologies were reviewed with consideration given to 's listening situations and lifestyle needs. - The has good vision, memory, and dexterity for hearing aid use. - Bilateral ear impressions were taken. Otoscopy was normal post ear mold impression procedure, bilaterally. - Hearing aids ordered: Resound Nexia 60 microRIC-R (color: silver/76, 2MP, embedded molds) HEARING AID CHECK/SERVICE/PROGRAMMING : - Newer aids cleaned and checked. Biologic listening check revealed no sound from left aid, fair sound from right. Visual inspection reveald left filter completely plugged, right partially plugged. Replaced filters, cleaned venting and mics. Following this, great sound quality from both aids. Aids conencted to software and programmed to today's hearing evaluation. Despite this, I forgot to save the session and didn't realize until after vteran had left. - Back-up aids not serviced today due to time constraints. PLAN: - will be scheduled for a 60-minute hearing aid fitting appointment. At this time, please propgram back-up aids and service very old back-up aids if time permits. Additionally, take new left impression for Perez aids as the current left mold no longer fits well all (protrudes very far). - is in agreement with this plan. /dino/ MARY ELLEN EDWARDS Head Of Talent Management Signed: 06/09/2024 15:39 MARY ELLEN EDWARDS [facility]
--- OUTSIDE RECORDS SUMMARY | 2024-06-11 05:00 | XMS_ITS | Encounter Summary ---
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 Date/Time Encounter Type Encounter Description Reason Provider Source Jun 11, 2024 10:00 AM OFFICE O/P EST MOD 30 MIN ENDOCRINOLOGY ICD-10-CM E29.1 Testicular hypofunction RICHARD SIERRA [facility] Encounter Template Text not used by [place] Assessments - Encounter Diagnoses This section includes the primary and secondary diagnoses documented for the Encounter. Date/Time Primary/Secondary Diagnosis Diagnosis Name Provider Source Jun 11, 2024 10:20 AM PRIMARY Testicular hypofunction RICHARD SIERRA [facility] Jun 11, 2024 10:20 AM SECONDARY Benign neoplasm of pituitary gland RICHARD SIERRA [facility] Jun 11, 2024 10:20 AM SECONDARY Other acute sinusitis RICHARD SIERRA [facility] Plan of Treatment: Future Appointments (+ 6 months) and Future Tests (+/- 45 days) The Plan of Treatment section includes future care activities for the [facility] This section includes future appointments and future orders which are active, pending or scheduled. Future Appointments This section includes appointments that were scheduled to occur 6 months from the date of the Encounter, up to a maximum of 20 appointments. The data comes from all [place] treatment facilities. Appointment Date/Time Appointment Type Appointme nt Facility Name Jun 27, 2024 11:45 AM AMBULATORY - MEDICINE [facility] Jul 14, 2024 10:45 AM AMBULATORY - SURGERY [facility] Jul 14, 2024 03:20 PM [facility] Sep 11, 2024 03:00 PM AMBULATORY - SURGERY [facility] Oct 05, 2024 04:37 PM AMBULATORY - NONE [facility] Oct 13, 2024 11:00 AM [facility] Nov 16, 2024 01:00 PM AMBULATORY - NONE [facility] Nov 16, 2024 02:00 PM AMBULATORY - MEDICINE [facility] Dec 01, 2024 02:40 PM AMBULATORY - SURGERY [facility] Dec 01, 2024 03:00 PM AMBULATORY - SURGERY [facility] Lab Results: +/- 30 days of the encounter This section includes the Chemistry and Hematology Lab Results on record with [place] for the patient. Radiology Reports and Pathology Reports are provided separately, in subsequent sections. Lab Results This section contains the Chemistry/Hematology Results that were resulted 30 days before or 30 daysafter the date of the Encounter. Date/Time Source Result Type Result - Unit Interpretation Reference Range Specimen Type Comment Jun 27, 2024 01:51 PM [facility] COVID-19 DIAGNOSTIC PANEL (BIOFIRE) NASOPHARYNG EAL Specimen Type: NASOPHARYNGEAL Comment: Biofire Arleen (618) Ordering Provider: VINCE VUONG Report Released Date/Time: Jun 27, 2024 01:34 PM Reporting Lab: [facility] [id number] Performing Lab: [facility] [phone] C PNEUMONIAE PCR NOT DETECTED NOT DETECT [...] PCR NOT DETECTED NOT DE TECTED B PARAPERTUS([id number]) NOT DETECTED NOT DE TECTED B PERTUSSIS(PTXP) NOT DETECTED NOT DETEC [facility] Nucleic a vipul of specified pathogen(s) IDENTIFIED COVID-19 DIAG (BIOF) NOT DETECTED NOT DE TECTED Jun 09, 2024 12:37 PM [facility] PROLACTIN PLASMA Specimen Type: PLASMA No comment entered. Ordering Provider: RICHARD SIERRA Report Released Date/Time: Jun 03, 2023 11:27 AM Reporting Lab: [facility] [phone] Performing Lab: [facility] [phone] PROLACTIN 10.78 ng/mL <19.40 Jun 09, 2024 12:37 PM [facility] FREE-T4 PLASMA Specimen Type: PLASMA No comment entered. Ordering Provider: RICHARD SIERRA Report Released Date/Time: Jun 03, 2023 11:27 AM Reporting Lab: [facility] [phone] Performing Lab: [facility] [phone] FREE T4 1.07 ng/dL 0.70-1.48 Jun 09, 2024 12:37 PM [facility] TESTOSTERONE SERUM Specimen Type : SERUM No comment entered. Ordering Provider: RICHARD SIERRA Report Released Date/Time: Jun 03, 2023 11:27 AM Reporting Lab: [facility] [phone] Performing Lab: [facility] [phone] TESTOSTERONE 349 ng/dL 221-870 Jun 09, 2024 12:37 PM [facility] TSH W/REFLEX TO FREE T4 PLASMA Spec imen Type: PLASMA No comment entered. Ordering Provider: RICHARD SIERRA Report Released Date/Time: Jun 03, 2023 11:27 AM Reporting Lab: [facility] [phone] Performing Lab: [facility] [phone] TSH 1.42 u[IU]/mL 0.35-4.94 FREE T4 1.07 ng/dL 0.70-1.48 Vital Signs: All taken on the encounter date This section contains inpatient and outpatient Vital Signs collected on the date of the Encounter. Date/Time Temperature Pulse Blood Pressure Respiratory Rate SP02 Pain Height Weight Body Mass Index Source Jun 11, 2024 09:59 AM 136/80 [facility] Jun 11, 2024 09:56 AM 153/88 [facility] Jun 11, 2024 09:56 AM 97.1 89 16 98 3 202.2 33 [facility] Social History: Smoking Status (Most current) and Tobacco Use (All prior to encounter date) This section includes the most current, and the historical, smoking and tobacco- related health factors from the [facility] where the Encounter took place. Current Smoking Status This section includes the most current smoking, or tobacco-related health factor, from the [facility] where the Encounter took place. Date/Time Current Smoking Status Comment Billie modi Nov 19, 2023 11:00 AM VA-TOBACCO NEVER USED [facility] Tobacco Use History This section includes a history of the smoking, or tobacco-related health factors, that were collected on or before the date of the Encounter. The data comes from the [place] facility where the Encounter took place. Date/Time Smoking Status/Tobacco Use Comment F acility Oct 09, 2022 11:00 AM MS-TOBACCO NEVER USED [facility] Sep 14, 2021 11:00 AM VA-TOBACCO NEVER USED [facility] Sep 01, 2020 10:30 AM VA-TOBACCO NEVER USED [facility] February 05, 2019 02:57 PM INPT NO TOBACCO USE IN LAST 30 D AYS [facility] February 05, 2019 09:33 AM VA-TOBACCO NEVER USED [facility] Dec 19, 2017 04:35 PM LIFETIME NON-TOBACCO USER [facility] Jul 30, 2017 01:03 PM INPT NO TOBACCO USE IN LAST 30 D AYS [facility] Dec 13, 2016 09:35 AM LIFETIME NON-TOBACCO USER [facility] Dec 08, 2015 12:12 PM LIFETIME NON-TOBACCO USER [facility] Dec 30, 2014 01:48 PM LIFETIME NON-TOBACCO USER [facility] Dec 31, 2013 01:19 PM LIFETIME NON-TOBACCO USER [facility] Oct 17, 2006 01:30 PM LIFETIME NON-TOBACCO USER [facility] Advance Directives: All historical and current Section Date Range: From patient's date of to the date document was created. This section includes ALL of a patient's completed or amended [place] Advance and Rescinded Directives. The entries below indicate that a directive exists for the patient, but an actual copy is not included with this document. The data comes from all [facility]. Date Advance Directives Provider Source Aug 04, 2017 CLINICAL WARNING WIL DAVIS [facility] Jul 31, 2017 ADVANCE DIRECTIVE DISCUSSION ARNOLDO LUNDBERG [facility] Nov 09, 2003 ADVANCE DIRECTIVE SHARDA STANLEY [facility] Radiology Reports: +/- 30 days of the [...] the Encounter. The data comes from all [facility] facilities. Date/Time Radiology Report Provider Source Jun 02, 2024 11:22 AM MRI-L-SPINE (P): GRIS VELASCO [id number] -[id number] M Exm Date: JUN 02, 2024@11:22 Req Phys: PAIDROSIEBULMARO [place] Loc: [facility] PAIN PAIDIN (Req'g Loc) Img Loc: OUTSOURCE MRI Service: Unknown (Case [id number] COMPLETE) MRI SPINE LUMBAR W/O CONTRAST (MRI Detailed) CPT:85851 Reason for Study: evaluate for lower lumbar/sacral [...] pager listed below: User placing orders pager: [phone] paidin LAST CREATININE 1.5 H (11/19/23) Allergies: PENICILLIN (2008) EMPAGLIFLOZIN (Aug 21, 2022) Report Status: Electronically Filed Date Reported: JUN 15, 2024 Report: This is an outside Imaging study and/or report imported for continuity of patient care. This Imaging study and/or report was not reviewed or verified by a [place] Radiologist. Impression: This is an outside Imaging study and/or report imported for continuity of patient care. This Imaging study and/or report was not reviewed or verified by a [place] Radiologist. Primary Diagnostic Code: VERIFIED BY: / *ELECTRONICALLY FILED* [facility] Encounter Notes: All associated encounter notes This section contains the clinical notes associated to the Encounter. Date/Time Encounter Note(s) Provider Source Jun 11, 2024 09:56 AM INTERNAL MEDICINE OUTPATIENT NOTE: LOCAL TITLE: MEDICINE CLINIC NURSING NOTE STANDARD TITLE: INTERNAL MEDICINE OUTPATIENT NOTE DATE OF NOTE: JUN 11, 2024@09:56 ENTRY DATE: JUN 11, 2024@09:56:48 AUTHOR: AYDE DAVIS COSIGNER: URGENCY: STATUS: COMPLETED TYPE OF VISIT: Appointment Check In Type of appointment: In-person appointment REASON FOR VISIT: Scheduled clinic visit ALLERGIES: PENICILLIN (2008) EMPAGLIFLOZIN (Aug 21, 2022) VITAL SIGNS: Blood Pressure: 153/88 (06/11/2024 09:56) Blood pressure recheck 136/80 Pulse: 89 (06/11/2024 09:56) Respiration: 16 (06/11/2024 09:56) Temperature: 97.1 F [36.2 C] (06/11/2024 09:56) Weight: 202.2 lb [91.72 kg] (06/11/2024 09:56) Height: 65.75 in [167.0 cm] (11/19/2023 11:20) BMI: 33.0 O2 Sat: 98% (06/11/2024 09:56) Pain: 3 (06/11/2024 09:56) PAIN SCREEN: Patient is not having significant pain that they wish to discuss with their provider today. MEDICATION Over the Counter/Herbal Medications: The patient states that they take some outside medications and/or herbals. /dino/ AYDE DAVIS LPN Licensed Practical Nurse Signed: 06/11/2024 10:00 AYDE DAVIS [facility] Jun 11, 2024 09:55 AM ENDOCRINOLOGY ATTE KADE NOTE: LOCAL TITLE: METABOLIC CLINIC NOTE STANDARD TITLE: ENDOCRINOLOGY ATTENDING NOTE DATE OF NOTE: JUN 11, 2024@09:55 ENTRY DATE: JUN 11, 2024@09:55:31 AUTHOR: RICHARD SIERRA EXP COSIGNER: URGENCY: STATUS: COMPLETED Endocrine/Metabolic Clinic Note Chief Complaint:This is an 89 yo male with hx of HLD, anxiety, HTN, obesity, DM, CKD and hx of nonfunctioning pituitary macroadenoma who presents today for follow-up. HPI: Patient presents for his annual pituitary follow-up. He last had an MRI in July 2023 which showed slight decrease size of his tumor. He was restarted on testosterone and reports today that his symptoms have improved a little bit. His testosterone is normal for the first time in years. He denies any vision changes or severe headaches. He does feel like he has a mild sinus infection. He noted a slight fever yesterday with some sinus congestion and yellow mucus. Otherwise, no other concerns. Current Pituitary Medications Testosterone 2 pumps daily, but he forgets to take it consistently PITUITARY HISTORY Hx of nonfunctioning pituitary macroadenoma s/p resection 2006. 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 During that visit he was followed for his DM and pituitary tumor which appeared to have regrown. He was consulted to neurosurgery, but the consult was cancelled for further imaging. Endocrine was reconsulted because he had his annual pituitary MRI 02/03/18 and this showed continued growth of the R sided pituitary mass (previously 2.4 cm x 1.9cm) in superior and transverse extent by approximately 2mm compared to prior study with additional mass effect on the central and right aspect of the optic chiasm. Pt was evaluated by neurosurgery April 10, 2018 who felt that the tumor was actually stable and deferred resection based on any changes to visual martinez. His visual martinez were completed 04/21/18 and do no suggest progression of tumor or chiasmal compression. Pt underwent repeat MRI 12/2019 with the following results: the mass measures 21mm x 19mm with continued flattening of the optic chiasm. Overall stable size. His visual martinez were completed in May 2019 and reported no evidence chiasmal compression. MRI was repeated 03/2022 Patient's MRI report shows a stable sellar macroadenoma. I spoke with him and relayed the results, and he continues to deny headaches or vision changes. We will plan to repeat MRI in 1 year, or sooner if symptoms change. 06/2023 Visual martinez stable MRI 07/2023 Pituitary MRI from July 2023 shows stable to slightly decreased size of pituitary tumor with mild mass-effect on optic chiasm. Past Medical History: Active problems - Computerized Problem List is the source for the followin. Hypertension (SNOMED CT 74477692) 2. Generalized anxiety disorder 3. Hyperlipidemia 4. Obesity (SNOMED CT 541447946) 5. Benign tumour of pituitary gland (SNOMED CT 91829810) 6. Diabetes mellitus (SNOMED CT 73332183) 7. 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 Splenomegaly 10. Bilateral hearing loss 11. Chronic sinusitis 12. Atrial fibrillation and flutter - on Apixaban and amiodarone 13. Esteban's esophagus 14. 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 Obstructive sleep apnea syndrome - does not wear his CPAP 16. Cholelithiasis 17. Long-term current use of anticoagulant 18. Psoriasis 19. Exposure to potentially hazardous substance ([facility] [id number]) [facility] Allergies: PENICILLIN (2008) EMPAGLIFLOZIN (Aug 21, 2022) Active Outpatient Medications (including Supplies): AMIODARONE HCL (PACERONE) 200MG TAB TAKE ONE [...] TIMES A DAY NEEDED FOR DRY EYES GABAPENTIN 400MG CAP TAKE ONE CAPSULE BY MOUTH TWICE A DAY ACTIVE FOR NEUROPATHIC PAIN INSULIN,GLARGINE-YFGN 100UNIT/ML PEN 3ML INJECT 22 UNITS ACTIVE (S) UNDER THE SKIN EVERY DAY FOR DIABETES [...] CAP/TAB 1 TAB MOUTH EVERY DAY ACTIVE MEDICATION RECONCILIATION 1. At this visit I have reviewed the medication list, and discussed relevant medications with the patient/surrogate. An updated patient medication list was given to the participant(s). 2. Education on NEW Medication (if ordered): I have reviewed the medication list for possible drug:drug interactions or contraindications prior to ordering NEW medications during this visit. 3. Patient indicated readiness to learn and has been instructed on action, dose, frequency and side effects of the new medication (if ordered) and I noted new medication on participant's copy of the medication list. Physical exam: Pleasant male in no distress. Ambulates with a cane. Cranial nerves II through XII intact. He does have more difficulty with visual field exam on left side. This is not a new finding. No sinus tenderness. Lungs CTA Vital Signs Temp: 97.5 F [36.4 C] (05/05/2024 13:20) B/P: 133/70 (05/05/2024 13:20) Pulse: 85 (05/05/2024 13:20) Ht: 65.75 in [167.0 cm] (11/19/2023 11:20) Wt: 205.7 lb [93.30 kg] (05/05/2024 13:20) Pain: 0 (05/05/2024 13:20) BMI: 33.5 Assessment and Plan: This is an 89 yo male with hx of HLD, anxiety, HTN, obesity, DM, CKD and hx of nonfunctioning pituitary macroadenoma s/p resection 2006 who presents today via phone for follow-up. #. Pituitary macroadenoma: Hx of non-secretory pituitary macroadenoma. Tumor is abutting the optic chiasm but his MRI is unchanged and his visual martinez are Stable. -Gonadal axis: Currently on testosterone with normal levels. Continue 2 pumps of gel daily. No need for routine PSA monitoring. -Prolactin: Normal -Thyroid axis: Intact -Growth hormone: Intact #. URI: Patient is afebrile with some slight sinus tenderness and yellow discharge. No acute symptoms of sinusitis. Recommend fluids, nasal rinses and Tylenol as needed. If fever or worsening, see PCP. #Follow-up in 1 year with labs Greater than 30 minutes was spent during this visit completing the followin. Reviewing the chart and any imaging or labs prior to the visit 2. Evaluating the patient and determining the prognosis and/or complications of the disorder 3. Determining the management approach including pro/cons and side effects of any medications prescribed 4. The follow up plan for the patient Disclaimer: This note consists of symbols derived from keyboarding, dictation and/or voice recognition software. As a result, there may be errors in the script that have gone undetected. Please consider this when interpreting information found in this chart. /dino/ LAM CHAMBERS NURSE PRACTITIONER, ENDOCRINE Signed: 06/11/2024 10:20 RICHARD SIERRA [facility]
--- OUTSIDE RECORDS SUMMARY | 2024-06-27 06:45 | XMS_ITS | Encounter Summary ---
Author Name [facility] Organization [facility] [place] Address [address] [place] [address] Care Team Providers Care Operations Planner Name Role Phone EDUIN SLATER Primary Care [...] PART B Feb 14, 2002 PART B [id number] [phone] KRISTAMAGY ERT PATIENT MEDICARE (WNR) MEDICARE (M) PART B Feb 14, 2002 PART B [id number] MAGY VELASCO ERT PATIENT MEDICARE (WNR) MEDICARE (M) PART A Feb 15, 1992 PART A [id number] [phone] MAGY VELASCO ERT PATIENT MEDICARE (WNR) MEDICARE (M) PART A Feb 15, 1992 PART A [id number] KRISTA,MAGY ERT PATIENT Selected Encounter This section includes the information on record at [place] for the Encounter. Date/Time Encounter Type Encounter Description Reason Provider Source Jun 27, 2024 11:45 AM EMERGENCY DEPT VISIT [facility] EMERGENCY DEPT ICD-10-CM J00 Acute nasopharyngitis [common cold] VINCE VUONG [facility] Encounter Template Text not used by [place] Assessments - Encounter Diagnoses This section includes the primary and secondary diagnoses documented for the Encounter. Date/Time Primary/Secondary Diagnosis Diagnosis Name Provider Source Jun 27, 2024 02:52 PM PRIMARY Acute nasopharyngitis [common cold] VINCE VUONG [facility] Plan of Treatment: Future Appointments (+ 6 months) and Future Tests (+/- 45 days) The Plan of Treatment section includes future care activities for the patient from all [place] treatmentfacilities. This section includes future appointments and future orders which are active, pending or scheduled. Future Appointments This section includes appointments that were scheduled to occur 6 months from the date of the Encounter, up to a maximum of 20 appointments. The data comes from all [place] treatment facilities. Appointment Date/Time Appointment Type Appointme nt Facility Name Jul 14, 2024 10:45 AM AMBULATORY - SURGERY [facility] Jul 14, 2024 03:20 PM [facility] Sep 11, 2024 03:00 PM AMBULATORY - SURGERY [facility] Oct 05, 2024 04:37 PM AMBULATORY - NONE [facility] Oct 13, 2024 11:00 AM AMBULATORY - REHAB [facility] Nov 16, 2024 01:00 PM AMBULATORY - NONE [facility] Nov 16, 2024 02:00 PM AMBULATORY - MEDICINE [facility] Dec 01, 2024 02:40 PM AMBULATORY - SURGERY [facility] Dec 01, 2024 03:00 PM AMBULATORY - SURGERY [facility] Lab Results: +/- 30 days of the encounter This section includes the Chemistry and Hematology Lab Results on record with [place] for the patient. Radiology Reports and Pathology Reports are provided separately, in subsequent sections. Lab Results This section contains the Chemistry/Hematology Results that were resulted 30 days before or 30 daysafter the date of the Encounter. Date/Time Source Result Type Result - Unit Interpretation Reference Range Specimen Type Comment Jun 27, 2024 01:51 PM [facility] COVID-19 DIAGNOSTIC PANEL (BIOFIRE) NASOPHARYNG EAL Specimen Type: NASOPHARYNGEAL Comment: Biofire Arleen ([id number]) Ordering Provider: VINCE VUONG Report Released Date/Time: Jun 27, 2024 01:34 PM Reporting Lab: [facility] [id number] Performing Lab: [facility] [id number] C PNEUMONIAE PCR NOT DETECTED NOT DETECT [...] PCR NOT DETECTED NOT DE TECTED B PARAPERTUS([id number]) NOT DETECTED NOT DE TECTED B PERTUSSIS(PTXP) NOT DETECTED NOT DETEC [facility] INTERP Nucleic a vipul of specified pathogen(s) IDENTIFIED COVID-19 DIAG (BIOF) NOT DETECTED NOT DE TECTED Jun 09, 2024 12:37 PM [facility] FREE-T4 PLASMA Specimen Type: PLASMA No comment entered. Ordering Provider: RICHARD SIERRA Report Released Date/Time: Jun 03, 2023 11:27 AM Reporting Lab: [facility] [id number] Performing Lab: [facility] [id number] FREE T4 1.07 ng/dL 0.70-1.48 Jun 09, 2024 12:37 PM [facility] PROLACTIN PLASMA Specimen Type: PLASMA No comment entered. Ordering Provider: RICHARD SIERRA Report Released Date/Time: Jun 03, 2023 11:27 AM Reporting Lab: [facility] [id number] Performing Lab: [facility] [id number] PROLACTIN 10.78 ng/mL <19.40 Jun 09, 2024 12:37 PM [facility] TESTOSTERONE SERUM Specimen Type : SERUM No comment entered. Ordering Provider: RICHARD SIERRA Report Released Date/Time: Jun 03, 2023 11:27 AM Reporting Lab: [facility] [id number] Performing Lab: [facility] [phone] TESTOSTERONE 349 ng/dL 221-870 Jun 09, 2024 12:37 PM [facility] TSH W/REFLEX TO FREE T4 PLASMA Spec imen Type: PLASMA No comment entered. Ordering Provider: RICHARD SIERRA Report Released Date/Time: Jun 03, 2023 11:27 AM Reporting Lab: [facility] [phone] Performing Lab: [facility] [phone] TSH 1.42 u[IU]/mL 0.35-4.94 FREE T4 1.07 ng/dL 0.70-1.48 Vital Signs: All taken on the encounter date This section contains inpatient and outpatient Vital Signs collected on the date of the Encounter. Date/Time Temperature Pulse Blood Pressure Respiratory Rate SP02 Pain Height Weight Body Mass Index Source Jun 27, 2024 11:49 AM 97.7 61 132/77 16 100 1 [facility] Social History: Smoking Status (Most current) and Tobacco Use (All prior to encounter date) This section includes the most current, and the historical, smoking and tobacco- related health factors from the [place] facility where the Encounter took place. Current Smoking Status This section includes the most current smoking, or tobacco-related health factor, from the [place] facility where the Encounter took place. Date/Time Current Smoking Status Comment Billie modi Nov 19, 2023 11:00 AM [place]-TOBACCO NEVER USED [facility] Tobacco Use History This section includes a history of the smoking, or tobacco-related health factors, that were collected on or before the date of the Encounter. The data comes from the [place] facility where the Encounter took place. Date/Time Smoking Status/Tobacco Use Comment Alda chicas Oct 09, 2022 11:00 AM [place]-TOBACCO NEVER USED [facility] Sep 14, 2021 11:00 AM VA-TOBACCO NEVER USED [facility] Sep 01, 2020 10:30 AM VA-TOBACCO NEVER USED [facility] February 05, 2019 02:57 PM INPT NO TOBACCO USE IN LAST 30 D AYS [facility] February 05, 2019 09:33 AM VA-TOBACCO NEVER USED [facility] Dec 19, 2017 04:35 PM LIFETIME NON-TOBACCO USER [facility] Jul 30, 2017 01:03 PM INPT NO TOBACCO USE IN LAST 30 D AYS [facility] Dec 13, 2016 09:35 AM LIFETIME NON-TOBACCO USER [facility] Dec 08, 2015 12:12 PM LIFETIME NON-TOBACCO USER [facility] Dec 30, 2014 01:48 PM LIFETIME NON-TOBACCO USER [facility] Dec 31, 2013 01:19 PM LIFETIME NON-TOBACCO USER [facility] Oct 17, 2006 01:30 PM LIFETIME NON-TOBACCO USER [facility] Advance Directives: All historical and current Section Date Range: From patient's date of to the date document was created. This section includes ALL of a patient's completed or amended [place] Advance and Rescinded Directives. The entries below indicate that a directive exists for the patient, but an actual copy is not included with this document. The data comes from all [facility]. Date Advance Directives Provider Source Aug 04, 2017 CLINICAL WARNING WIL DAVIS [facility] Jul 31, 2017 ADVANCE DIRECTIVE DISCUSSION ARNOLDO LUNDBERG [facility] Nov 09, 2003 ADVANCE DIRECTIVE SHARDA STANLEY [facility] Radiology Reports: +/- 30 days of [...] the Encounter. The data comes from all [place] treatment facilities. Date/Time Radiology Report Provider Source Jun 02, 2024 11:22 AM MRI-L-SPINE (P): GRIS VELASCO [id number] -[phone] M Exm Date: JUN 02, 2024@11:22 Req Phys: PAIDINBULMARO Loc: [facility] PAIN PAIDIN (Req'g Loc) Img Loc: OUTSOURCE MRI Service: Unknown (Case [id number] COMPLETE) MRI SPINE LUMBAR W/O CONTRAST (MRI Detailed) CPT:10302 Reason for Study: evaluate for lower lumbar/sacral [...] pager listed below: User placing orders pager: [phone] paidin LAST CREATININE 1.5 H (11/19/23) Allergies: PENICILLIN (2008) EMPAGLIFLOZIN (Aug 21, 2022) Report Status: Electronically Filed Date Reported: JUN 15, 2024 Report: This is an outside Imaging study and/or report imported for continuity of patient care. This Imaging study and/or report was not reviewed or verified by a [place] Radiologist. Impression: This is an outside Imaging study and/or report imported for continuity of patient care. This Imaging study and/or report was not reviewed or verified by a [place] Radiologist. Primary Diagnostic Code: VERIFIED BY: / *ELECTRONICALLY FILED* [facility] Encounter Notes: All associated encounter notes This section contains the clinical notes associated to the Encounter. Date/Time Encounter Note(s) Provider Source Jun 27, 2024 02:52 PM NURSING EMERGENCY DEPT NOTE: LOCAL TITLE: EMERGENCY DEPT NURSING NOTE STANDARD TITLE: NURSING EMERGENCY DEPT NOTE DATE OF NOTE: JUN 27, 2024@14:52 ENTRY DATE: JUN 27, 2024@14:52:22 AUTHOR: PEGGY GRIFFITHS COSIGNER: URGENCY: STATUS: COMPLETED Emergency Department Discharge Education Personal Protective Equipment (PPE): Patient was in mask on arrival, Patient was in mask on arrival, patient remained masked for entire visit, RN used PPE during every encounter with the patient, MD/PA/WEARING APPAREL ASSEMBLER used PPE during every encounter with the patient The patient was given education on the following: UPPER RESPIRATORY INFECTION (Common cold caused by a virus) EDUCATION/TEACH BACK: [facility] discharge instructions have been reviewed with Patient AND had an opportunity to ask questions, has verbalized understanding, have received a copy of the [facility] instructions EDUCATIONAL LEVEL OF UNDERSTANDING: Patient was ready and receptive to education. BARRIERS TO LEARNING: Accompanied by: Self Mode of Transportation: Drive self EXIT ADDITIONAL EDUCATION GIVE: Wristband Removal:Patient wristband was removed and destroyed by being placed in the shred bin. Discharged to: Home // PEGGY GRIFFITHS RN HUMAN RESOURCES COMPENSATION ANALYST Signed: 06/27/2024 14:52 PEGGY GRIFFITHS [facility] Jun 27, 2024 02:51 PM EMERGENCY DEPT EDU CATION NOTE: LOCAL TITLE: EMERGENCY DEPT DISCHARGE INSTRUCTIONS STANDARD TITLE: EMERGENCY DEPT EDUCATION NOTE DATE OF NOTE: JUN 27, 2024@14:51:13 ENTRY DATE: JUN 27, 2024@14:51:13 AUTHOR: VINCE VUONG EXP COSIGNER: URGENCY: STATUS: COMPLETED DISCHARGE INSTRUCTIONS IMPORTANT: We examined and treated you today on an emergency basis only. This was not a substitute for, or an effort to provide, comprehensive medical care. In most cases, you must let your healthcare provider check you again. Tell your healthcare provider about any new or lasting problems. We cannot recognize and treat all injuries or illnesses in one Emergency Department visit. After you leave, you should follow the instructions below. You were treated today by SIN Barker. - Special Information - - This Information Is About Your Follow Up Care - We do not anticipate you will require any follow-up care as a result of your treatment today. Contact your Primary Care Provider if you feel you need to be seen again because you are experiencing new symptoms, feel worse, or are not getting better as discussed. Future Appointments 07/09/2024 at 12:40pm [facility] EYE TECH VISUAL FIELD 07/09/2024 at 1:00pm [facility] EYE OPHTHAL CARDINAL 07/14/2024 at 10:45am [facility] AUD FOURTEEN 07/14/2024 at 3:20pm [facility] PAIN INTERVENTION PROC - This Information Is About Your Illness and Diagnosis - UPPER RESPIRATORY INFECTION (Common cold caused by a virus) An upper respiratory infection is also known as the common cold. It is caused by a virus. Antibiotic medicines do not treat infections caused by viruses. If medicines are used, they are used to relieve your symptoms. Medicines won't make a cold go away any sooner. A cold causes inflammation of the lining of the nose and throat. It may also affect the larynx (voice box) and eustachian tubes (tubes between the ears and nose), and sinuses. After the virus enters your body, your body reacts to the foreign virus. This results in: -swelling within the nose, causing stuffiness -increased mucus production, causing a runny nose and cough -irritation in the nose, causing sneezing -irritation in the throat, causing a sore throat What causes an upper respiratory infection? There are many different viruses that cause a cold. Roughly 200 varieties of viruses can cause a cold. Colds are most common in the fall and winter. In spite of common belief, colds are not caused by cold weather. Colds occur more often in cold weather due to: -an increased number of people are inside and in close contact with each other -pulp drier weather - it is easier for viruses to attach to pulp drier mucus membranes, such as the lining of the nose The cold virus is contagious - it can be passed from one person to another. You must come in contact with the affected virus. The virus can be passed through: -the air when a person sneezes or coughs. You can get the infection when you breathe in the affected air, and the virus attaches to the lining of your nose or throat. -direct contact with an infected person or object. This can occur when an infected person touches their nose (or nose secretions), mouth or eyes, then touch other people or objects with their infected hands. Common contaminated objects include toys, keyboards, door knobs, remote controls, or game controllers. Touching your mouth, nose, and eyes without washing your hands is also a way to get a virus. Most people get symptoms 2 to 3 days after being exposed to the virus. You are most contagious the first 3 days of a cold (once you have symptoms). The infection can last 1 to 2 weeks. How does my health care provider know that I have an upper respiratory infection? Signs and symptoms: -stuffy or runny nose (After a few days, the mucus from a runny nose may turn yellow or green. This is normal for a cold.) -scratchy throat -cough, sneezing, watery eyes -mild headache or muscle aches -low fever How can an upper respiratory infection affect my health? What are the complications or risks? The risks of having a cold are higher for people who have certain chronic conditions, such as asthma. Complications are usually the result of cold symptoms. Complications may include ear infections, sinus infections, throat infections, or lung infections (bronchitis or pneumonia). What is the usual treatment? The goal of treatment is to relieve your symptoms and to prevent further complications. At home, please follow these instructions: -Drink extra liquids such as water, hot tea, or even chicken soup. -Do not smoke. If you need help quitting, talk with your health care provider. -Stay away from second-hand smoke. This further irritates the lining of the nose and throat. -To control pain or a fever, take nonsteroidal anti-inflammatory drugs (NSAIDs, such as ibuprofen, Motrin, Advil, or naproxen) or acetaminophen (Tylenol). -Use a cool-mist vaporizer or humidifier in the room. -Use saline spray/rinse in your nose. This may help relieve congestion. -Cough and blow your nose into a tissue. Throw the tissue in the garbage after using it. Use tissues rather than a handkerchief. -Wash your hands with soap and water after touching your nose, eyes, mouth and after blowing your nose. -Be careful if you take an qupy-epn-qcbfgue cold medicine that includes an antihistamine. Antihistamines can make you very drowsy. This can make it dangerous for you to drive or operate heavy machinery. -If you have high blood pressure, heart disease, or prostate problems, talk to your health care provider or pharmacist before taking muap-adg-zcqxqwv cold medicine. Contact your health care provider immediately if you are struggling to breathe. Contact your health care provider as soon as possible if you: -have a fever or pain not relieved by acetaminophen or ibuprofen. -have an increased cough, chest pain or back pain. -notice that your cough brings up phlegm that has darkened in color or contains blood. -have any new or bothersome symptoms. - IMPORTANT MEDICATION INFORMATION -Your medication list includes any medications that were recently prescribed but not filled by the Pharmacy (PENDING Medicines). -Included are any known ACTIVE Medicines. Please review this list to make sure it is accurate, if this list does not match the current medications you are taking please follow-up with your Primary Care Team to have your Medication List reviewed. Pending Medications DM 10/GUAIFENESN 100MG/5ML (AF & SF) LIQ \ Sig: TAKE 1 TEASPOONFUL BY MOUTH EVERY 6 HOURS NEEDED\Indication: FOR COUGH AND CONGESTION SODIUM CHLORIDE 0.65% SOLN NASAL SPRAY \ Sig: SPRAY 2 SPRAYS IN EACH NOSTRIL EVERY HOUR NEEDED\Indication: FOR CONGESTION THROAT LOZENGE W/BENZOCAINE,MENTHOL \ Sig: DISSOLVE 1 LOZENGE IN MOUTH EVERY 2 HOURS NEEDED\Indication: FOR SORE THROAT Active Medications ACETAMINOPHEN TAB 650MG MOUTH NEEDED (Non-VA Medication) AMIODARONE HCL (PACERONE) 200MG TAB TAKE ONE TABLET BY MOUTH EVERY DAY INDEFINITELY FOR AFIB AMLODIPINE BESYLATE 10MG TAB TAKE ONE TABLET BY MOUTH EVERY DAY FOR BLOOD PRESSURE. APIXABAN 2.5MG TAB (Active/Suspended) TAKE ONE TABLET BY MOUTH EVERY 12 HOURS TO PREVENT BLOOD CLOTS/STROKES ATORVASTATIN CALCIUM 40MG TAB (Active/Suspended) TAKE ONE TABLET BY MOUTH AT BEDTIME FOR CHOLESTEROL BETA SITOSTEROL CAP/TAB 3 MOUTH EVERY DAY (Non-VA Medication) CALCIUM CARBONATE TAB 3-4 TABLETS MOUTH EVERY DAY NEEDED (Non-VA Medication) CHONDROITIN/GLUCOSAMINE CAP/TAB MOUTH EVERY DAY (Non-VA Medication) CINNAMON CAP/TAB EVERY DAY (Non-VA Medication) INSULIN,GLARGINE-YFGN 100UNIT/ML PEN 3ML (Active/Suspended) INJECT 22 UNITS UNDER THE SKIN EVERY DAY FOR DIABETES LISINOPRIL 20MG TAB TAKE ONE TABLET BY MOUTH EVERY DAY FOR HIGH BLOOD PRESSURE. LORATADINE TAB,ORAL 10MG MOUTH NEEDED (Non-VA Medication) MULTIVITAMINS TAB 1 TABLET MOUTH EVERY DAY (Non-VA Medication) OMEPRAZOLE 20MG EC CAP TAKE ONE CAPSULE BY MOUTH EVERY DAY ON AN EMPTY STOMACH, AT LEAST 30 MINUTES PRIOR TO A MEAL FOR YUN'S ESOPHAGUS SODIUM CHLORIDE 0.65% SOLN,SPRAY,NASAL QD EACH NOSTRIL EVERY DAY NEEDED (Non-VA Medication) TAMSULOSIN HCL 0.4MG CAP TAKE ONE CAPSULE BY MOUTH EVERY DAY TESTOSTERONE 1.62% 20.25MG/PUMP TOP GEL APPLY 2 PUMPS TOPICALLY ONCE A DAY FOR LOW TESTOTERONE TURMERIC CAP/TAB 1 TAB MOUTH EVERY DAY (Non-VA Medication) Medications Medications in the last 90 days ACCU-CHEK GUIDE (GLUCOSE) TEST STRIP USE 1 STRIP FOUR TIMES A DAY TO CHECK BLOOD SUGAR--USE WITHIN 3 MINUTES OF REMOVING FROM CONTAINER ARTIFICIAL TEARS PVA 1.4%/POVIDONE (PF) INSTILL 1 DROP IN BOTH EYES SIX TIMES A DAY FOR DRY EYES CARBOXYMETHYLCELLULOSE NA 0.5% OPH SOLN INSTILL 1 DROP IN BOTH EYES FOUR TIMES A DAY NEEDED FOR DRY EYES CEFDINIR 300MG CAP TAKE ONE CAPSULE BY MOUTH TWICE A DAY FOR UTI CLOTRIMAZOLE 1% TOP CREAM APPLY THIN LAYER TOPICALLY TWICE A DAY FOR RASH GABAPENTIN 400MG CAP TAKE ONE CAPSULE BY MOUTH TWICE A DAY FOR NEUROPATHIC PAIN YOU ARE THE MOST IMPORTANT FACTOR IN YOUR RECOVERY. Follow the above instructions carefully. Take your medicines as prescribed. If you do not understand any of your medicines, please ask questions. If you have any outstanding tests from the emergency department, please contact your provider to review them in the next 3-5 days. If you have new symptoms, feel worse, or are not getting better as discussed, call to discuss your health questions and arrange for follow-up care, or return to the Emergency Room IF YOU ARE EXPERIENCING A MEDICAL EMERGENCY CALL 911 OR GO TO THE NEAREST EMERGENCY ROOM /dino/ SIN BARKER PHYSICIAN PIG BREEDER Signed: 06/27/2024 14:51 VINCE VUONG [facility] Jun 27, 2024 01:46 PM PHYSICIAN EMERGENC Y DEPT NOTE: LOCAL TITLE: EMERGENCY DEPT NOTE STANDARD TITLE: PHYSICIAN EMERGENCY DEPT NOTE DATE OF NOTE: JUN 27, 2024@13:46 ENTRY DATE: JUN 27, 2024@13:46:05 AUTHOR: VINCE VUONG EXP COSIGNER: URGENCY: STATUS: COMPLETED Chief Complaint:Runny nose, sore throat and congestion for 2 days. HPI: 89-year-old came in complaining of runny nose stuffiness and sinus congestion and mild cough and some discomfort in his throat for the last 2 days. Denies any fever or nausea or vomiting or chest pain or palpitation or shortness of breath. He is taking some guaifenesin cough suppressant. ROS Head & Neck - no ROWE,n/v. Eyes - no visual changes, no blurry vision ENT - some nasal congestion, no discharge, no bleeding - No oral lesions or ulcers CV - no chest pain, no palpitations, no dizziness Pulm - no dyspnea, no orthopnea, no PND, no hemoptysis, Neuro - no weakness, no numbness, no tingling PMH: Please see CPRS General - NAD Vitals: Blood Pressure: 132/77 (06/27/2024 11:49) Heart Rate: 61 (06/27/2024 11:49) Respirations: 16 (06/27/2024 11:49) Temperature: 97.7 F [36.5 C] (06/27/2024 11:49) Pain: 1 (06/27/2024 11:49) Weight: 202.2 lb [91.72 kg] (06/11/2024 09:56) O2 Sats: 100% (06/27/2024 11:49) General: Well-appearing sitting up in bed. Skin: Warm and dry. HEENT: pinna and ears normal, no mastoid tenderness. Intraoral is normal. No gumline fluctuance or erythema. No intra oral masses or swelling. Nose bilaterally patent nares with no drainage. Neck: No cervical lymphadenopathy. Cardiovascular: Normal S1 and S2 audible . Pulmonary: Unlabored breathing. Bilateral breath sounds.No wheezing or crackles. Extremities: No lower extremity edema, symmetric ankles. Neuro: Alert and oriented x4. Ambulatory. Labs: Test Name Result Units Range --------- ------ ----- ----- COVID-19 DIAG (BIOF) NOT DETECTED Ref: NOT DETECTED ADENOVIRUS-PCR NOT DETECTED Ref: NOT DETECTED CORONAVIRUS 229E PCR NOT DETECTED Ref: NOT DETECTED CORONAVIRUS HKU1 PCR NOT DETECTED Ref: NOT DETECTED CORONAVIRUS NL63 PCR DETECTED H Ref: NOT DETECTED CORONAVIRUS OC43 PCR NOT DETECTED Ref: NOT DETECTED H METAPNEUMOVIR PCR NOT DETECTED Ref: NOT DETECTED H RHIN/ENTEROVIR PCR NOT DETECTED Ref: NOT DETECTED INFLUENZA A PCR NOT DETECTED Ref: NOT DETECTED INFLUENZA B PCR NOT DETECTED Ref: NOT DETECTED PARAINFLUENZA V1 PCR NOT DETECTED Ref: NOT DETECTED PARAINFLUENZA V2 PCR NOT DETECTED Ref: NOT DETECTED PARAINFLUENZA V3 PCR NOT DETECTED Ref: NOT DETECTED PARAINFLUENZA V4 PCR NOT DETECTED Ref: NOT DETECTED RSV PCR NOT DETECTED Ref: NOT DETECTED B PARAPERTUS([id number]) NOT DETECTED Ref: NOT DETECTED B PERTUSSIS(PTXP) NOT DETECTED Ref: NOT DETECTED C PNEUMONIAE PCR NOT DETECTED Ref: NOT DETECTED M PNEUMONIAE PCR NOT DETECTED Ref: NOT DETECTED RESPIRATORY INTERP Nucleic acid of specified pathogen(s) IDENTIFIED Comments: Shantanu Bacon ([id number]) Ordering Provider: Vince A/P:89-year-old came in complaining of runny nose stuffiness and sinus congestion and mild cough and some discomfort in his throat for the last 2 days. Denies any fever or nausea or vomiting or chest pain or palpitation or shortness of breath. He is taking some guaifenesin cough suppressant. -Acute nasopharyngitis: -Cough suppressant -Acetaminophen -Nasal spray -Throat lozenges -Follow-up with PCP A discussion was had with the patient regarding the diagnosis and treatment plan and the patient expressed understanding of the plan and consented to it. The patient is alert, oriented and appears capable of making medical decisions. In addition, the patient will return to the emergency department if there is persistence of the symptoms,worsening of the symptoms, if new symptoms develop or if there are any concerns. Patient was educated to all aspects of the plan and verbalized complete understanding. Patient will follow up with primary care as needed. Patient will immediately return to the emergency department should he develop any new and/or concerning symptoms. The above note was dictated using voice recognition software. While proofreading attempts were made to verify accuracy, it is possible that nonsensical phrases and words are still contained within the document. Please direct all questions regarding content to the original author. TDAP/TD Immunizations No data available for: TETANUS TOXOID, ADSORBED TETANUS TOXOID, NOT ADSORBED TETANUS TOXOID, UNSPECIFIED FORMULATION TDAP Covid-19 Immunizations ADMINISTERED Immunization Series Date Facility Reaction Info COVID-19 (Contractors_AID), MRNA, LNP-S, * 1 10/13/2020 [place] <C> COVID-19 (PFIZER), MRNA, LNP-S, * 2 11/03/2020 [place] <C> COVID-19 ([facility]), MRNA, LNP-S, * 3 07/11/2021 [place] <C> CONTRAINDICATED No data available REFUSED ======= Immunization Date Facility Info COVID-19 (PFIZER), MRNA, LNP-S, * 11/19/2023 [place] <I> <C> See the Detailed Immunizations Health Summary Component[DIM] for Comments <I> See the Detailed Immunizations Health Summary Component[DIM] for Additional Information * Value is truncated; see the Detailed Immunizations Health Summary Component[DIM] for complete text Allergies: PENICILLIN (2008) EMPAGLIFLOZIN (Aug 21, 2022) Past Medical History: Active problems - Computerized Problem List is the source for the followin. Hypertension (SNOMED CT 39535942) 2. Generalized anxiety disorder 3. Hyperlipidemia 4. Obesity (SNOMED CT 406809328) 5. 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 Diabetes mellitus (SNOMED CT 26109637) 7. Chronic kidney disease stage 3 (SNOMED CT 581721542) 8. 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 Splenomegaly 10. Bilateral hearing loss 11. Chronic sinusitis 12. Atrial fibrillation and flutter - on Apixaban and amiodarone 13. 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 Obstructive sleep apnea syndrome - does not wear his CPAP 16. Cholelithiasis 17. Long-term current use of anticoagulant 18. Psoriasis 19. Exposure to potentially hazardous substance ([facility] [id number]) - [facility]ation Initiative Medications: Active Outpatient Medications (excluding Supplies): Outpatient Medications Status 1) AMIODARONE HCL (PACERONE) 200MG TAB TAKE ONE TABLET ACTIVE BY MOUTH EVERY DAY INDEFINITELY FOR AFIB 2) AMLODIPINE BESYLATE 10MG TAB TAKE ONE TABLET BY MOUTH ACTIVE EVERY DAY FOR BLOOD PRESSURE. 3) APIXABAN 2.5MG TAB TAKE ONE TABLET BY MOUTH EVERY 12 ACTIVE (S) HOURS TO PREVENT BLOOD CLOTS/STROKES 4) ATORVASTATIN CALCIUM 40MG TAB TAKE ONE TABLET BY ACTIVE (S) MOUTH AT BEDTIME FOR CHOLESTEROL 5) INSULIN,GLARGINE-YFGN 100UNIT/ML PEN 3ML INJECT 22 ACTIVE (S) UNITS UNDER THE SKIN EVERY DAY FOR DIABETES 6) LISINOPRIL 20MG TAB TAKE ONE TABLET BY MOUTH EVERY ACTIVE DAY FOR HIGH BLOOD PRESSURE. 7) OMEPRAZOLE 20MG EC CAP TAKE ONE CAPSULE BY MOUTH ACTIVE EVERY DAY ON AN EMPTY STOMACH, AT LEAST 30 MINUTES PRIOR TO A MEAL FOR YUN'S ESOPHAGUS 8) TAMSULOSIN HCL 0.4MG CAP TAKE ONE CAPSULE BY MOUTH ACTIVE EVERY DAY 9) TESTOSTERONE 1.62% 20.25MG/PUMP TOP GEL APPLY 2 PUMPS ACTIVE TOPICALLY ONCE A DAY FOR LOW TESTOTERONE Non-VA Medications Status 1) Non-VA ACETAMINOPHEN 325MG TAB 650MG MOUTH NEEDED ACTIVE 2) Non-VA BETA SITOSTEROL CAP/TAB 3 MOUTH EVERY DAY ACTIVE 3) Non-VA CALCIUM CARBONATE TAB 3-4 TABLETS MOUTH EVERY ACTIVE DAY NEEDED 4) Non-VA CHONDROITIN/GLUCOSAMINE CAP/TAB MOUTH EVERY ACTIVE DAY 5) Non-VA CINNAMON CAP/TAB EVERY DAY ACTIVE 6) Non-VA LORATADINE 10MG TAB 10MG MOUTH NEEDED ACTIVE 7) Non-VA MULTIVITAMIN CAP/TAB 1 TABLET MOUTH EVERY DAY ACTIVE 8) Non-VA SODIUM CHLORIDE 0.65% SOLN,SPRAY,NASAL QD EACH ACTIVE NOSTRIL EVERY DAY NEEDED 9) Non-VA TURMERIC CAP/TAB 1 TAB MOUTH EVERY DAY ACTIVE 18 Total Medications /es/ SIN BARKER PHYSICIAN PIG BREEDER Signed: 06/27/2024 14:52 VINCE VUONG [facility] Jun 27, 2024 12:29 PM NURSING EMERGENCY DEPT NOTE: LOCAL TITLE: EMERGENCY DEPT NURSING NOTE STANDARD TITLE: NURSING EMERGENCY DEPT NOTE DATE OF NOTE: JUN 27, 2024@12:29 ENTRY DATE: JUN 27, 2024@12:29:40 AUTHOR: CHAUNCEY SALTER EXP COSIGNER: URGENCY: STATUS: COMPLETED EMERGENCY DEPT NURSING NOTE Has ADDENDA Nursing Focused Assessment: CHIEF COMPLAINT: sinus headache and mucus x2 days, rash on abdomen, bug bites on legs/buttocks;Pt states he has had a runny nose that turned yellow/green mucus-like. He has been using loratidine and saline rinses. Endorses a rash on his lower abdomen from skin folds after losing weight. Also startes he had a bug bite on his right leg, then left leg, left arm and buttocks. Allergies/ADR: PENICILLIN (2008) EMPAGLIFLOZIN (Aug 21, 2022) Additional allergies not listed: Vital Signs * Blood Pressure: 132/77 (06/27/2024 11:49) Heart Rate: 61 (06/27/2024 11:49) Respirations: 16 (06/27/2024 11:49) Temperature: 97.7 F [36.5 C] (06/27/2024 11:49) Pain: 1 (06/27/2024 11:49) Weight: 202.2 lb [91.72 kg] (06/11/2024 09:56) O2 Sats: 100% (06/27/2024 11:49) Tobacco use: No Alcohol use: No Any drugs besides what is prescribed or over the counter: No ABUSE/NEGLECT: No evidence of abuse/neglect REVIEW OF SYSTEM-FOCUSED ASSESSMENT Neurological: Alert Respiratory: Quality of breath: Equal and unlabored chest rise and fall INTERVENTIONS: Oriented to room and bed controls Call light within reach of patient or family/friend Bed in low position and locked /dino/ CHAUNCEY SALTER REGISTERED NURSE Signed: 06/27/2024 12:32 06/27/2024 ADDENDUM STATUS: RETRACTED You may not VIEW this RETRACTED Addendum. 06/27/2024 ADDENDUM STATUS: RETRACTED You may not VIEW this RETRACTED Addendum. CHAUNCEY SALTER [facility] Jun 27, 2024 11:52 AM NURSING EMERGENCY DEPT TRIAGE NOTE: LOCAL TITLE: EMERGENCY DEPARTMENT NURSING TRIAGE NOTE STANDARD TITLE: NURSING EMERGENCY DEPT TRIAGE NOTE DATE OF NOTE: JUN 27, 2024@11:52 ENTRY DATE: JUN 27, 2024@11:52:18 AUTHOR: MARSHA MALDONADO COSIGNER: URGENCY: STATUS: COMPLETED Emergency Department/Urgent Care Center Triage Patient age:89 Sex: MALE On arrival patient was: AMBULATORY Patient phone number: Allergies: PENICILLIN (2008) EMPAGLIFLOZIN (Aug 21, 2022) Subjective/Chief Complaint: c/o sinus pressure and drainage x 2 d. He is also concerned with some bug bites? on his leg/back area. Objective: Blowing his nose and having some yellowish green sputum. The patient is not a fall risk. Vital Signs * Blood Pressure: 132/77 Heart Rate:70 Respirations: 16 ( Temperature: 97.7 Pain: 1 Weight: 202.2 lb [91.72 kg] (06/11/2024 09:56) O2 Sats: 98% Emergency Severity Index (JOAQUIM) level Level 4 Current Medications: Active Outpatient Medications (including Supplies): Active Outpatient Medications Status 1) AMIODARONE HCL (PACERONE) 200MG TAB TAKE ONE TABLET ACTIVE BY MOUTH EVERY DAY INDEFINITELY FOR AFIB 2) AMLODIPINE BESYLATE 10MG TAB TAKE ONE TABLET BY MOUTH ACTIVE EVERY DAY FOR BLOOD PRESSURE. 3) APIXABAN 2.5MG TAB TAKE ONE TABLET BY MOUTH EVERY 12 ACTIVE (S) HOURS TO PREVENT BLOOD CLOTS/STROKES 4) ATORVASTATIN CALCIUM 40MG TAB TAKE ONE TABLET BY ACTIVE (S) MOUTH AT BEDTIME FOR CHOLESTEROL 5) INSULIN,GLARGINE-YFGN 100UNIT/ML PEN 3ML INJECT 22 ACTIVE (S) UNITS UNDER THE SKIN EVERY DAY FOR DIABETES 6) LISINOPRIL 20MG TAB TAKE ONE TABLET BY MOUTH EVERY ACTIVE DAY FOR HIGH BLOOD PRESSURE. 7) OMEPRAZOLE 20MG EC CAP TAKE ONE CAPSULE BY MOUTH ACTIVE EVERY DAY ON AN EMPTY STOMACH, AT LEAST 30 MINUTES PRIOR TO A MEAL FOR YUN'S ESOPHAGUS 8) TAMSULOSIN HCL 0.4MG CAP TAKE ONE CAPSULE BY MOUTH ACTIVE EVERY DAY 9) TESTOSTERONE 1.62% 20.25MG/PUMP TOP GEL APPLY 2 PUMPS ACTIVE TOPICALLY ONCE A DAY FOR LOW TESTOTERONE Active Non-VA Medications Status 1) Non-VA ACETAMINOPHEN 325MG TAB 650MG MOUTH NEEDED ACTIVE 2) Non-VA BETA SITOSTEROL CAP/TAB 3 MOUTH EVERY DAY ACTIVE 3) Non-VA CALCIUM CARBONATE TAB 3-4 TABLETS MOUTH EVERY ACTIVE DAY NEEDED 4) Non-VA CHONDROITIN/GLUCOSAMINE CAP/TAB MOUTH EVERY ACTIVE DAY 5) Non-VA CINNAMON CAP/TAB EVERY DAY ACTIVE 6) Non-VA LORATADINE 10MG TAB 10MG MOUTH NEEDED ACTIVE 7) Non-VA MULTIVITAMIN CAP/TAB 1 TABLET MOUTH EVERY DAY ACTIVE 8) Non-VA SODIUM CHLORIDE 0.65% SOLN,SPRAY,NASAL QD EACH ACTIVE NOSTRIL EVERY DAY NEEDED 9) Non-VA TURMERIC CAP/TAB 1 TAB MOUTH EVERY DAY ACTIVE 18 Total Medications Current Problems: Hypertension ([facility] [id number]) Generalized anxiety disorder ([facility] 77205080) Hyperlipidemia ([facility] 89028359) Obesity ([facility] 896437241) Benign tumour of pituitary gland (SCT 92Diabetes mellitus ([facility] 83706926) Chronic kidney disease stage 3 ([facility] 4331Psoriasis with arthropathy ([facility] 85189998) Splenomegaly ([facility] 90405962) Bilateral hearing loss ([facility] 10734815) Chronic sinusitis ([facility] 82687866) Atrial fibrillation and flutter ([facility] 965003913) Yun's esophagus ([facility] [id number]) Male hypogonadism ([facility] 58811046) Obstructive sleep apnea syndrome (SCT 78Cholelithiasis ([facility] 752620227) Long-term current use of anticoagulant (Psoriasis ([facility] 1112683) Exposure to potentially hazardous substa Identification of Seniors at Risk (ISAR):* Perform Screen Yes-ISAR More than 3 different medications daily Total Score: 1 Suicide Screen: [place] Suicide Severity Rating Scale (C-SSRS) screener 1. Over the past month, have you wished you were or wished you could go to sleep and not wake up? No 2. Over the past month, have you had any actual thoughts of killing yourself? No 3. Over the past month, have you been thinking about how you might do this? Response not required due to responses to other questions. 4. Over the past month, have you had these thoughts and had some intention of acting on them? Response not required due to responses to other questions. 5. Over the past month, have you started to work out or worked out the details of how to kill yourself? Response not required due to responses to other questions. 6. If yes, at any time in the past month did you intend to carry out this plan? Response not required due to responses to other questions. 7. In your lifetime, have you ever done anything, started to do anything, or prepared to do anything to end your life (for example, collected pills, obtained a gun, gave away valuables, went to the roof but didn't jump)? No 8. If YES, was this within the past 3 months? Response not required due to responses to other questions. /dino/ MARSHA MALDONADO RN HUMAN RESOURCES COMPENSATION ANALYST Signed: 06/27/2024 11:57 MARSHA MALDONADO [facility]
--- OUTSIDE RECORDS SUMMARY | 2024-07-14 05:45 | XMS_ITS | Encounter Summary ---
Author Name [facility] [place] [facility] Address [address] [place] [address] Care Team Providers Care Millinery Copyist Name Role Phone BRYON EDUIN Primary Care [...] PART B Feb 14, 2002 PART B [id number] [phone] KRISTAMAGY ERT PATIENT MEDICARE (WNR) MEDICARE (M) PART B Feb 14, 2002 PART B [id number] [phone] KRISTAMAGY ERT PATIENT MEDICARE (WNR) MEDICARE (M) PART A Feb 15, 1992 PART A [id number] [phone] KRISTAMAGY ERT PATIENT MEDICARE (WNR) MEDICARE (M) PART A Feb 15, 1992 PART A [id number] [phone] KRISTAMAGY ERT PATIENT Selected Encounter This section includes the information on record at [place] for the Encounter. Date/Time Encounter Type Encounter Description Reason Provider Source Jul 14, 2024 10:45 AM CONFORMITY EVALUATION AUDIOLOGY ICD-10-CM H90.3 Sensorineural hearing loss, bilateral MELL EDWARDS E Encounter Template Text not used by [place] Assessments - Encounter Diagnoses This section includes the primary and secondary diagnoses documented for the Encounter. Date/Time Primary/Secondary Diagnosis Diagnosis Name Provider Source Jul 14, 2024 12:05 PM PRIMARY Sensorineural hearing loss, bilateral MELL EDWARDS [facility] Jul 14, 2024 12:05 PM SECONDARY Encounter for fitting and adjustment of hearing aid MELL EDWARDS [facility] Jul 14, 2024 12:05 PM SECONDARY Tinnitus, bilateral MELL EDWARDS R [facility] Plan of Treatment: Future Appointments (+ 6 months) and Future Tests (+/- 45 days) The Plan of Treatment section includes future care activities for the patient [facility] [place] [facility] This section includes future appointments and future orders which are active, pending or scheduled. Future Appointments This section includes appointments that were scheduled to occur 6 months from the date of the Encounter, up to a maximum of 20 appointments. The data comes from all [place] treatment facilities. Appointment Date/Time Appointment Type Appointme nt Facility Name Sep 11, 2024 03:00 PM AMBULATORY - SURGERY [facility] Oct 05, 2024 04:37 PM AMBULATORY - NONE [facility] Oct 13, 2024 11:00 AM AMBULATORY - REHAB [facility] Nov 16, 2024 01:00 PM AMBULATORY - NONE [facility] Nov 16, 2024 02:00 PM AMBULATORY - MEDICINE [facility] Dec 01, 2024 02:40 PM AMBULATORY - SURGERY [facility] Dec 01, 2024 03:00 PM AMBULATORY - SURGERY [facility] Dec 29, 2024 10:00 [facility] Jan 11, 2025 10:02 AM AMBULATORY - MEDICINE [facility] Lab Results: +/- 30 days of the encounter This section includes the Chemistry and Hematology Lab Results on record with [place] for the patient. Radiology Reports and Pathology Reports are provided separately, in subsequent sections. Lab Results This section contains the Chemistry/Hematology Results that were resulted 30 days before or 30 daysafter the date of the Encounter. Date/Time Source Result Type Result - Unit Interpretation Reference Range Specimen Type Comment Jun 27, 2024 01:51 PM [facility] COVID-19 DIAGNOSTIC PANEL (BIOFIRE) NASOPHARYNG EAL Specimen Type: NASOPHARYNGEAL Comment: Biofire Arleen (618) Ordering Provider: VINCE VUONG Report Released Date/Time: Jun 27, 2024 01:34 PM Reporting Lab: [facility] [id number] Performing Lab: [facility] [id number] C PNEUMONIAE PCR NOT DETECTED NOT DETECT [...] PCR NOT DETECTED NOT DE TECTED B PARAPERTUS([id number]) NOT DETECTED NOT DE TECTED B PERTUSSIS(PTXP) NOT DETECTED NOT DETEC [facility] Nucleic a vipul of specified pathogen(s) IDENTIFIED COVID-19 DIAG (BIOF) NOT DETECTED NOT DE TECTED Vital Signs: All taken on the encounter date This section contains inpatient and outpatient Vital Signs collected on the date of the Encounter. Date/Time Temperature Pulse Blood Pressure Respiratory Rate SP02 Pain Height Weight Body Mass Index Source Jul 14, 2024 02:44 PM 97.9 79 114/65 16 98 1 [facility] Social History: Smoking Status (Most current) and Tobacco Use (All prior to encounter date) This section includes the most current, and the historical, smoking and tobacco- related health factors from the [place] facility where the Encounter took place. Current Smoking Status This section includes the most current smoking, or tobacco-related health factor, from the [place] facility where the Encounter took place. Date/Time Current Smoking Status Comment Facil ity Nov 19, 2023 11:00 AM [place]-TOBACCO NEVER USED [facility] Tobacco Use History This section includes a history of the smoking, or tobacco-related health factors, that were collected on or before the date of the Encounter. The data comes from the [place] facility where the Encounter took place. Date/Time Smoking Status/Tobacco Use Comment Alda chicas Oct 09, 2022 11:00 AM VA-TOBACCO NEVER USED [facility] Sep 14, 2021 11:00 AM VA-TOBACCO NEVER USED [facility] Sep 01, 2020 10:30 AM VA-TOBACCO NEVER USED [facility] February 05, 2019 02:57 PM INPT NO TOBACCO USE IN LAST 30 D S [facility] February 05, 2019 09:33 AM VA-TOBACCO NEVER USED [facility] Dec 19, 2017 04:35 PM LIFETIME NON-TOBACCO USER [facility] Jul 30, 2017 01:03 PM INPT NO TOBACCO USE IN LAST 30 D [facility] Dec 13, 2016 09:35 AM LIFETIME NON-TOBACCO USER [facility] Dec 08, 2015 12:12 PM LIFETIME NON-TOBACCO USER [facility] Dec 30, 2014 01:48 PM LIFETIME NON-TOBACCO USER [facility] Dec 31, 2013 01:19 PM LIFETIME NON-TOBACCO USER [facility] Oct 17, 2006 01:30 PM LIFETIME NON-TOBACCO USER [facility] Advance Directives: All historical and current Section Date Range: From patient's date of to the date document was created. This section includes ALL of a patient's completed or amended [place] Advance and Rescinded Directives. The entries below indicate that a directive exists for the patient, but an actual copy is not included with this document. The data comes from all [facility]. Date Advance Directives Provider Source Aug 04, 2017 CLINICAL WARNING WIL DAVIS [facility] Jul 31, 2017 ADVANCE DIRECTIVE DISCUSSION ARNOLDO LUNDBERG [facility] Nov 09, 2003 ADVANCE DIRECTIVE SHARDA STANLEY [facility] Encounter Notes: All associated encounter notes This section contains the clinical notes associated to the Encounter. Date/Time Encounter Note(s) Provider Source Jul 14, 2024 07:34 AM AUDIOLOGY NOTE: LOCAL TITLE: AUDIOLOGY CLINIC NOTE STANDARD TITLE: AUDIOLOGY NOTE DATE OF NOTE: JUL 14, 2024@07:34 ENTRY DATE: JUL 14, 2024@07:34:33 AUTHOR: MARY ELLEN EDWARDS COSIGNER: URGENCY: STATUS: COMPLETED SUBJECT: HEARING AID FITTING AUDIOLOGY CLINIC NOTE Has ADDENDA DIAGNOSIS: Encounter for Fitting and Adjustment of Hearing Aid, Bilateral Sensorineural Hearing Loss, Bilateral Tinnitus REASON FOR VISIT: Therapeutic - hearing aid fitting, conformity evaluation/real-ear measures, orientation and counseling using a standard curriculum (60 minutes). SUBJECTIVE/HISTORY: is an experienced hearing aid user. Recommended he keep his old hearing aids (2018 issued [employer]) as a backup/spare as needed. He noted he really liked the microphone accessory for listening to speakers at his living facility. OBJECTIVE: Hearing aids right/left; Date Fit: 07/14/2024 Make: Resound Model: Nexia 60 Style: [employer] Serial #: [id number] Acoustics: 2MP, encased molds CONFORMITY EVALUATION (VERIFICATION OF HEARING AID FUNCTION): Real Ear Aided Response (REAR) was measured using the [employer] 2 system. According to the NAL-NL2 fitting method, the patient's hearing aids are meeting target for soft and average speech. Loudness intolerance was measured using a 90 dB MPO tone sweep and the patient was able to tolerate the output of the hearing devices. The fit was found to be satisfactory. ACTION: Hearing aids are a good physical fit. Hearing aids were programmed to prescriptive targets, which were derived from the Veterans hearing loss. Veterans subjective impressions were considered while adjusting the hearing aids. The frequency response is set at 100% of target gain. Feedback test was completed and feedback delicatessen department manager was activated. Volume control enabled via short press Synchronized - right to raise, left to lower Resound vinicius was not downloaded today due to time constraints. Lincoln reported his son can help him with this. was counseled on the following: -Full-time hearing aid use and acclimating to amplification -Realistic expectations for hearing aid use -Appropriate communication strategies -Rechargeability -Location and operation of all controls -Proper care and maintenance -Protecting hearing in high noise levels -[employer] [facility] and Call Center contact information and services, including the trial period reported good sound quality and equal balance between ears after adjustments were made. reported a comfortable fit. Lincoln demonstrated understanding of the new aids and was able to insert the hearing aids appropriately, as well as manipulate the volume control. Prognosis for success is good given the 's response to the hearing aids. Hearing aids were issued and supplies (GN wax guards) were mailed. HEARING AID CHECK: - 's back-up hearing aids were connected to software and programmed to most recent hearing evaluation, per request/plan from last time. PLAN: - Multi-kathleen ordered. - Lincoln will return to clinic as needed for service. - Patient is in agreement with this plan. Aud tech: please mail multi kathleen to /dino/ MARY ELLEN EDWARDS Switch Coupler Signed: 07/14/2024 12:05 07/21/2024 ADDENDUM STATUS: COMPLETED MULTI KATHLEEN certified and mailed to address on file /dino/ BESSY FRAGA PSA Signed: 07/21/2024 10:05 MARY ELLEN EDWARDS [facility]
--- OUTSIDE RECORDS SUMMARY | 2024-07-14 10:20 | XMS_ITS | Encounter Summary ---
Author Name [facility] [place] [facility] [place] [facility] [place] [facility] [place] Address [address] [place] [address] Care Team Providers Care Environmental Education Specialist Name Role Phone EDUIN SLATER Primary Care [...] PART B Feb 14, 2002 PART B [id number] [phone] MAGY VELASCO ERT PATIENT MEDICARE (WNR) MEDICARE (M) PART B Feb 14, 2002 PART B [id number] MAGY VELASCO ERT PATIENT MEDICARE (WNR) MEDICARE (M) PART A Feb 15, 1992 PART A [id number] [phone] MAGY VELASCO ERT PATIENT MEDICARE (WNR) MEDICARE (M) PART A Feb 15, 1992 PART A [id number] [phone] KRISTAMAGY PATIENT Selected Encounter This section includes the information on record at [place] for the Encounter. Date/Time Encounter Type Encounter Description Reason Provider Source Jul 14, 2024 03:20 PM NJX AA&/STRD TFRM EPI L/S 1 [facility]IN CL[facility] ICD-10-CM M54.16 Radiculopathy , lumbar region LAYLAJOON MAHMOOD CHUCK E Encounter Template Text not used by [facility] Assessments - Encounter Diagnoses This section includes the primary and secondary diagnoses documented for the Encounter. Date/Time Primary/Secondary Diagnosis Diagnosis Name Provider Source Jul 15, 2024 01:39 PM PRIMARY Radiculopathy, lumbar region JOE BRUMFIELD FSADAT [facility] Plan of Treatment: Future Appointments (+ 6 months) and Future Tests (+/- 45 days) The Plan of Treatment section includes [facility] care activities for the [facility] [place] [facility] This section includes future appointments and future orders which are active, pending or scheduled. Future Appointments This section includes appointments that were scheduled to occur 6 months from the date of the Encounter, up to a maximum of 20 appointments. The data comes from all [place] treatment facilities. Appointment Date/Time Appointment Type Appointme nt Facility Name Sep 11, 2024 03:00 PM AMBULATORY - SURGERY [facility] Oct 05, 2024 04:37 PM AMBULATORY - NONE [facility] Oct 13, 2024 11:00 AM AMBULATORY - [facility] Nov 16, 2024 01:00 PM AMBULATORY - NONE [facility] Nov 16, 2024 02:00 PM AMBULATORY - MEDICINE [facility] Dec 01, 2024 02:40 PM AMBULATORY - SURGERY [facility] Dec 01, 2024 03:00 PM AMBULATORY - SURGERY [facility] Dec 29, 2024 10:00 AM AMBULATORY - [facility] Jan 11, 2025 10:02 AM AMBULATORY - MEDICINE [facility] Lab Results: +/- 30 days of the encounter This section includes the Chemistry and Hematology Lab Results on record with [place] for the patient. Radiology Reports and Pathology Reports are provided separately, in subsequent sections. Lab Results This section contains the Chemistry/Hematology Results that were resulted 30 days before or 30 daysafter the date of the Encounter. Date/Time Source Result Type Result - Unit Interpretation Reference Range Specimen Type Comment Jun 27, 2024 01:51 PM [facility] COVID-19 DIAGNOSTIC PANEL (BIOFIRE) NASOPHARYNG EAL Specimen Type: NASOPHARYNGEAL Comment: Lisefiradriel Bacon ([id number]) Ordering Provider: VINCE VUONG Report Released Date/Time: Jun 27, 2024 01:34 PM Reporting Lab: [facility] [address] [facility] [id number] Performing Lab: [facility] [id number] C PNEUMONIAE PCR NOT DETECTED NOT DETECT [...] PCR NOT DETECTED NOT DE TECTED B PARAPERTUS([id number]) NOT DETECTED NOT DE TECTED B PERTUSSIS(PTXP) [...] PM 97.9 79 114/65 16 98 1 [place] [facility] Social History: Smoking Status (Most current) and Tobacco Use (All prior to encounter date) This section includes the most current, and the historical, smoking and tobacco- related health factors from the [place] facility where the Encounter took place. Current Smoking Status This section includes the most current smoking, or tobacco-related health factor, from the [place] facility where the Encounter took place. Date/Time Current Smoking Status Comment Facil ity Nov 19, 2023 11:00 AM VA-TOBACCO NEVER USED [facility] Tobacco Use History This section includes a history of the smoking, or tobacco-related health factors, that were collected on or before the date of the Encounter. The data comes from the [place] facility where the Encounter took place. Date/Time Smoking Status/Tobacco Use Comment F acility Oct 09, 2022 11:00 AM VA-TOBACCO NEVER USED [facility] Sep 14, 2021 11:00 AM VA-TOBACCO NEVER USED [facility] Sep 01, 2020 10:30 AM VA-TOBACCO NEVER USED [facility] February 05, 2019 02:57 PM INPT NO TOBACCO USE IN LAST 30 D AYS [facility] February 05, 2019 09:33 AM VA-TOBACCO NEVER USED [facility] Dec 19, 2017 04:35 PM LIFETIME NON-TOBACCO USER [facility] Jul 30, 2017 01:03 PM INPT NO TOBACCO USE IN LAST 30 D [facility] Dec 13, 2016 09:35 AM LIFETIME NON-TOBACCO USER [facility] Dec 08, 2015 12:12 PM LIFETIME NON-TOBACCO USER [facility] Dec 30, 2014 01:48 PM LIFETIME NON-TOBACCO USER [facility] Dec 31, 2013 01:19 PM LIFETIME NON-TOBACCO USER [facility] Oct 17, 2006 01:30 PM LIFETIME NON-TOBACCO USER [facility] Advance Directives: All historical and current Section Date Range: From patient's date of to the date document was created. This section includes ALL of a patient's completed or amended [place] Advance and Rescinded Directives. The entries below indicate that a directive exists for the patient, but an actual copy is not included with this document. The data comes from all [place] facilities. Date Advance Directives Provider Source Aug 04, 2017 CLINICAL WARNING WIL DAVIS [facility] Jul 31, 2017 ADVANCE DIRECTIVE DISCUSSION ARNOLDO LUNDBERG [facility] Nov 09, 2003 ADVANCE DIRECTIVE SHARDA STANLEY [facility] Encounter Notes: All associated encounter notes This section contains the clinical notes associated to the Encounter. Date/Time Encounter Note(s) Provider Source Jul 14, 2024 04:36 PM PAIN PROCEDURE NOT E: LOCAL TITLE: PAIN INTERVENTIONAL PROCEDURE NOTE STANDARD TITLE: PAIN PROCEDURE NOTE DATE OF NOTE: JUL 14, 2024@16:36 ENTRY DATE: JUL 15, 2024@13:37:03 AUTHOR: JOON GARZA EXP COSIGNER: URGENCY: STATUS: COMPLETED PM&R PAIN INTERVENTIONAL PROCEDURE NOTE Side: Right Level: S1 Procedure: Transforaminal Epidural Steroid Injection Procedural diagnosis: Lumbar spondylosis Anesthesia: Local only Needle Type: Spinal 22g 3.5in Contrast Dye: Omni 180 3 mL Injected Solution: Dexamethasone PF 10 mg Lidocaine 1% MPF 2 mL Complications None Outcome: Good Preprocedure pain level 1/10 Postprocedure pain level 1/10 The heart rate and pulse oximetry were continuously monitored throughout the procedure. Time Out: A procedural pause verifying correct patient, medical record number, allergies, and surgical site was performed immediately prior to beginning the procedure. Utilizing AP floroscopy with approximately 30 degree head tilt, the lateral border of the S1 neuroforamen was identified on the right and the skin 1-2 cm inferior was marked as an entry point. The skin and subcutaneous tissue overlying the target site of injection was anesthetized using 2-3mL of 1% lidocaine MPF with a 25-gauge, 1.5-inch needle. The above noted needle was then advanced under intermittent fluoroscopic guidance towards the above noted target foramen. After advancing into the neuroforamen as identified by texture change and/or making osseous contact and walking the needle into the foramen, the final depth and position of the needle was confirmed using AP and lateral views. Paresthesias WERE NOT noted with final needle positioning. A microbore extension tubing was attached to the needle to minimize any movement of the needle during injection or syringe change. After negative aspiration for heme or CSF, injection of the above listed contrast medication demonstrated spread within the neuroforamen and spinal canal. Additional contrast was then injected under DIGITAL SUBTRACTION ANGIOGRAPHY to demonstrate epidurogram/neurogram and demonstrate absence of vascular spread. Pain provocation by the injected contrast material WAS NOT noted. After negative aspiration for heme or CSF, the injectate solution described above was injected in increments. The needle was then retracted approximately chcf and the needle track was flushed with 0.5 mL of 1% lidocaine. The needle was then removed. A sterile bandage was placed over the injection site. The same procedural technique outlined above WAS NOT repeated on the OPPOSITE side. The patient tolerated the procedure well. The patient was carefully escorted to the recovery room in stable condition. After meeting discharge criteria, the patient was discharged home. Discussion: Today we performed a sacral transforaminal epidural steroid injection. Conditions of the spine that result in spinal nerve root irritation such as disc protrusions, spinal stenosis, or post surgical radiculitis often respond favorably to transforaminal epidural steroid injections. The goal in performing a transforaminal epidural steroid injections is to provide relief from pain and permit greater function. The patient was advised to relax and avoid any heavy lifting or excessive bending for the rest of the day. The patient was advised that they may return to their usual activities tomorrow if otherwise feeling well. The patient was advised not to bathe or soak in water for 24 hours but that showering would be acceptable. The patient was instructed that if they experienced fever or chills, new weakness, new sensory changes, any changes in bowel or bladder habits, worsening back pain, new headache, neck stiffness, or other new symptoms, that they should contact the pain clinic immediately or dial 911 if unable to reach the pain clinic. The patient has agreed not to travel out of the area for the next 4 days following the procedure in order to be reevaluated if necessary. Recommendations: 1. Patient is instructed to follow up with referring provider Patient may contact the [facility] regulatory affairs specialist call line to schedule a repeat injection in 3 or more months should today's procedure provide prolonged benefit/improvement in function 2. The patient has agreed not to travel out of the area for the next 4 days following the procedure so that they can be reevaluated if necessary. 3. No medications were prescribed at today's visit. 4. Additional recommendations: None RECOMMENDATIONS FOR FUTURE PROCEDURES: None The procedure was performed by Dr. Brumfield (Pain Medicine Fellow) for which I was present and supervised all critical portions of the procedure as detailed below including but not limited to preprocedural time out, site marking, final needle positioning, contrast injection and interpretation, as well as therapeutic injection. I was also available to provide assistance as needed throughout the procedure as needed. Joon Garza MD Pain Medicine /dino/ JOON GARZA MD PAIN MEDICINE PHYSICIAN Signed: 07/15/2024 13:39 JOON GARZA [facility] Jul 14, 2024 03:18 PM PAIN CONSULT: LOCAL TITLE: IMAGING REQUEST CONSULT STANDARD TITLE: PAIN CONSULT DATE OF NOTE: JUL 14, 2024@15:18 ENTRY DATE: JUL 14, 2024@15:19 AUTHOR: NENA CURRAN COSIGNER: URGENCY: STATUS: COMPLETED Images were taken to facilitate procedure carried out by medical provider. <5mL of Omnipaque 180 was used for this procedure. /dino/ NENA CURRAN PROPERTY INSURANCE CLAIMS EXAMINER Signed: 07/14/2024 15:19 NENA CURRAN [facility] Jul 14, 2024 02:44 PM PHYSICAL MEDICINE REHAB NURSING NOTE: LOCAL TITLE: REHAB MEDICINE CLINIC NURSING NOTE STANDARD TITLE: PHYSICAL MEDICINE REHAB NURSING NOTE DATE OF NOTE: JUL 14, 2024@14:44 ENTRY DATE: JUL 14, 2024@14:44:38 AUTHOR: MARIKA MCCOLLUM COSIGNER: URGENCY: STATUS: COMPLETED PM&R Interventional Pain Procedure Pre-procedure Patient escorted to clinic via Ambulatory Patient is scheduled for: Right TFESI Patient was identified by using full name and social security number and/or date of : Yes Procedure(s) to be performed was(were) discussed with patient and verified to be correct: Yes Patient/Family/Caregiver indicated readiness to learn: Yes Barriers to learning: vision, wears glasses, hard of hearing, hearing aids Patient and/or family provided with appropriate education and patient and/or family acknowledged understanding: Yes 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 8) OMEPRAZOLE 20MG EC CAP TAKE ONE CAPSULE BY MOUTH ACTIVE EVERY DAY ON AN EMPTY STOMACH, AT LEAST 30 MINUTES PRIOR TO A MEAL FOR ESTEBAN'S ESOPHAGUS 9) SODIUM CHLORIDE 0.65% SOLN NASAL SPRAY SPRAY 2 SPRAYS ACTIVE IN EACH NOSTRIL EVERY HOUR NEEDED FOR NASAL CONGESTION. 10) TAMSULOSIN HCL 0.4MG CAP TAKE ONE CAPSULE BY MOUTH ACTIVE EVERY DAY 11) TESTOSTERONE 1.62% 20.25MG/PUMP TOP GEL APPLY 2 PUMPS ACTIVE TOPICALLY ONCE A DAY FOR LOW TESTOTERONE 12) THROAT LOZENGE W/BENZOCAINE,MENTHOL DISSOLVE 1 ACTIVE LOZENGE IN MOUTH EVERY 2 HOURS NEEDED FOR SORE THROAT Non-VA Medications Status 1) Non-VA ACETAMINOPHEN 325MG [...] CAP/TAB 1 TAB MOUTH EVERY DAY ACTIVE 21 Total Medications Above medication list reviewed by patient and no additional medications noted; Medications held per protocol Allergies: Munith has allergy concerns related to pain procedure: No Allergy to: Temperature: 97.9 F [36.6 C] (07/14/2024 14:44) Pulse: 79 (07/14/2024 14:44) Pulse Oximetry: 98% (07/14/2024 14:44) Respirations: 16 (07/14/2024 14:44) Blood Pressure: 114/65 (07/14/2024 14:44) Pain: 1 (07/14/2024 14:44) PT____ INR - NONE FOUND takes blood thinning medications: Held as ordered. Patient held blood thinning medication as directed. ASA/ASA containing products have been held per protocol: Not applicable Fish Oil or Vitamin E in the last 6 days: Not applicable NSAIDS in the last 7 days: Not applicable Phosphodiesterase Inhibitors (e.g. Sildenafil, Vardenafil, Tadalafil, Cilostazol) in the last 48 hours: Not applicable Diabetic: Yes HEMOGLOBIN A1C 6.4 H (11/19/23) Antibiotics in the last week: Denies Sick or had any fever/chills in the last week: Denies Fractures in the past 12 weeks: Denies Surgical procedures (including dental) within the last 3 months: Denies Upcoming planned surgeries: Denies Rash or any open wounds: Denies Patient has had a change in bowel/bladder function/new saddle anesthesia? Denies Patient has had a change in strength/new weakness? Denies Patient has had a change in balance/increased falls? Denies Patient has had recent changes in their health? Denies Steroid injections within the last 3 months: Denies Recent or scheduled vaccines within 2 weeks of this procedure: Denies Plans to travel outside of the country or to a place in the [place] where there is not access to medical care within 4 days following the procedure: Denies Patient is : Not applicable Patient ate solid food, broth, Jell-O or candy in the last 4 hours: Yes Patient had clear liquids in the last 2 hours: Denies Patient has pacemaker, defibrillator, nerve stimulator or any implantable devices: Not applicable Patient has a history of dizziness/balance problems: Denies Patient has a history of nausea, lightheadedness, excessive sweating, feeling warm, blood pressure/heart rate drop during a procedure or blood draw: Denies If patient answered YES to any of the above questions: / WAS verbally informed of the patient's above answers PRIOR to having patient consent to procedure. Provider notified of LST orders: Not applicable Procedure explained by: Brissa Written informed consent obtained by Brissa, using IMed consent. Informed Consent Progress Note containing risks, benefits and alternatives documented. Correct site marked by attending physician. Procedure: Site Marking: Site marked, then verified by attending physician. ---Time out checklist---- Confirm correct patient identity: Yes Confirm Procedure To Be Performed: Yes Confirm Site of the Procedure, Including Laterality: Yes Confirm Valid I-MED Consent: Yes Confirm Patient Position: Yes Confirm Procedure Site has been Marked Appropriately and that the Site of the Chris is Visible After Prep and Draping: Yes Pertinent Medical Images Have Been Confirmed, if applicable: Not Applicable Confirm allergies: No Fire risk assessment completed: Not Applicable Procedure started: 1513 Procedure ended: 1521 Staff Physician: Greg Medical Fellow: Brissa In Store Marketer: N/A RN: Dee Guest Room Attendant: Mary Nursing observations: Patient assisted to position Supine to facilitate procedure. Patient is prepped and draped in sterile fashion, per Brissa. Patient is continually assessed for comfort and safety (See MD procedure note for procedure and medication specifics) pulse oximeter and heart rate continually monitored throughout procedure. Post injection, puncture wound was cleaned and dressed with tegaderm. Patient assisted into a sitting position and assessed for dizziness, nausea, weakness or any additional complaints. Dressing clean, dry and intact; site free of hematoma/swelling. Complications noted: None Post-procedure: Patient transferred via Stretcher to post procedure area. Pulse: 74 Pulse Oximetry: 99 Respirations: 16 Blood Pressure: 133/73 Pain: 1 No Procedure-related weakness, balance or gait alteration noted. Observed by RN for 10 minutes. The patient was instructed to follow up with: PCP for any new concerns Pain interventional procedure nurse for repeat procedure. Post procedure instructions were reviewed with patient including: activity restrictions, safety precautions, post procedure pain management, dressing instructions, infection signs/symptoms, and medication side effects. Patient also educated about the expected onset and duration of this procedure. A copy of the instructions was given to the patient, including the contact phone numbers for the [facility] Nurse [facility] and the [facility] Procedure Nurse Coordinator for questions and concerns was provided. Patient verbalized understanding. Munith advised to resume anticoagulation medications as directed by anticoagulation consult. Wristband Removal: Patient wristband was removed and destroyed by being placed in the shred bin. Patient discharged via Ambulatory at 1532. /dino/ MARIKA MCCOLLUM R.N RN Signed: 07/14/2024 15:57 MARIKA MCCOLLUM [facility]
--- OUTSIDE RECORDS SUMMARY | 2024-10-13 06:00 | XMS_ITS | Encounter Summary ---
Author Name [facility] [place] [facility] [place] Address [address] [place] [address] Care Team Providers Care Weatherization Administrator Name Role Phone EDUIN SLATER Primary Care [...] PART B Feb 14, 2002 PART B [id number] [phone] KRISTAMAGY ERT PATIENT MEDICARE (WNR) MEDICARE (M) PART B Feb 14, 2002 PART B [id number] [phone] KRISTAMAGY ERT PATIENT MEDICARE (WNR) MEDICARE (M) PART A Feb 15, 1992 PART A [id number] [phone] KRISTAMAGY ERT PATIENT MEDICARE (WNR) MEDICARE (M) PART A Feb 15, 1992 PART A [id number] [phone] KRISTA,MAGY ERT PATIENT Selected Encounter This section includes the information on record at [place] for the Encounter. Date/Time Encounter Type Encounter Description Reason Provider Source Oct 13, 2024 11:00 AM OFFICE O/P EST MOD 30 MIN PAIN CLINIC ICD-10-CM M47.896 Other spondylosis, lumbar region BULMARO WOOD Encounter Template Text not used by [place] Assessments - Encounter Diagnoses This section includes the primary and secondary diagnoses documented for the Encounter. Date/Time Primary/Secondary Diagnosis Diagnosis Name Provider Source Oct 13, 2024 12:42 PM PRIMARY Other spondylosis, lumbar region BULMARO WOOD [facility] Plan of Treatment: Future Appointments (+ 6 months) and Future Tests (+/- 45 days) The Plan of Treatment section includes future care activities for the patient [facility]. This section includes future appointments and future orders which are active, pending or scheduled. Future Appointments This section includes appointments that were scheduled to occur 6 months from the date of the Encounter, up to a maximum of 20 appointments. The data comes from all [facility]. Appointment Date/Time Appointment Type Appointme nt Facility Name Nov 16, 2024 01:00 PM AMBULATORY - NONE [facility] Nov 16, 2024 02:00 PM AMBULATORY - MEDICINE [facility] Dec 01, 2024 02:40 PM AMBULATORY - SURGERY [facility] Dec 01, 2024 03:00 PM AMBULATORY - SURGERY [facility] Dec 29, 2024 10:00 [facility] Jan 11, 2025 10:02 AM AMBULATORY - MEDICINE [facility] February 02, 2025 11:00 AM AMBULATORY - SURGERY [facility] 2025 01:00 [facility] Mar 17, 2025 07:40 AM AMBULATORY - REHAB [facility] Active, Pending, and Scheduled Orders This section includes a listing of several types of active, pending, and scheduled orders, including clinic medications orders, diagnostic test orders, procedure orders and consult orders; where the start date of the order is 45 days before the date of the Encounter or 45 days after the date of theEncounter. The data comes from all [facility]. Test Date/Time Test Type Test Details Facility Name Oct 16, 2024 12:00 AM Laboratory - Chemistry Order CBC BLOOD SP [facility] Oct 16, 2024 12:00 AM Laboratory - Chemistry Order COMPREHENSIVE METABOLIC PANEL+MG PLASMA SP ONCE [facility] Vital Signs: All taken on the encounter date This section contains inpatient and outpatient Vital Signs collected on the date of the Encounter. Date/Time Temperature Pulse Blood Pressure Respiratory Rate SP02 Pain Height Weight Body Mass Index Source Oct 13, 2024 10:49 AM 97.6 78 104/65 99 197.4 32 TERESITA GARZA [facility] Social History: Smoking Status (Most current) and Tobacco Use (All prior to encounter date) This section includes the most current, and the historical, smoking and tobacco- related health factors from the [place] facility where the Encounter took place. Current Smoking Status This section includes the most current smoking, or tobacco-related health factor, from the [place] facility where the Encounter took place. Date/Time Current Smoking Status Comment Billie modi Nov 19, 2023 11:00 AM [place]-TOBACCO NEVER USED [facility] Tobacco Use History This section includes a history of the smoking, or tobacco-related health factors, that were collected on or before the date of the Encounter. The data comes from the [place] facility where the Encounter took place. Date/Time Smoking Status/Tobacco Use Comment F acility Oct 09, 2022 11:00 AM VA-TOBACCO NEVER USED [facility] Sep 14, 2021 11:00 AM VA-TOBACCO NEVER USED [facility] Sep 01, 2020 10:30 AM VA-TOBACCO NEVER USED [facility] February 05, 2019 02:57 PM INPT NO TOBACCO USE IN LAST 30 D [facility] February 05, 2019 09:33 AM VA-TOBACCO NEVER [...] ALL of a patient's completed or amended [place] Advance and Rescinded Directives. The entries below indicate that a directive exists for the patient, but an actual copy is not included with this document. The data comes from all [place] facilities. Date Advance Directives Provider Source Aug 04, 2017 CLINICAL WARNING SUSANWIL Jyalon TERESITA GARZA [facility] Jul 31, 2017 ADVANCE DIRECTIVE DISCUSSION ARNOLDO LUNDBERG [facility] Nov 09, 2003 ADVANCE DIRECTIVE SHARDA STANLEY [facility] Encounter Notes: All associated encounter notes This section contains the clinical notes associated to the Encounter. Date/Time Encounter Note(s) Provider Source Oct 13, 2024 11:55 AM PAIN OUTPATIENT NO TE: LOCAL TITLE: PAIN CENTER CLINIC NOTE STANDARD TITLE: PAIN OUTPATIENT NOTE DATE OF NOTE: OCT 13, 2024@11:55 ENTRY DATE: OCT 13, 2024@11:55:35 AUTHOR: BELÉN BRUMFIELD EXP COSIGNER: URGENCY: STATUS: COMPLETED PAIN CENTER CLINIC NOTE Has ADDENDA HPI: 88 year old MALE patient who presents for follow up evaluation of low back pain. Last seen in clinic 08/01/2024. In the interim since that visit: - No change in character or region of pain. No new neurologic symptoms in the lower limbs. No changes with bowel/bladder habits. exercises at the [facility] to try and stay active/mobile. He localizes pain to the lower lumbar region. Worst pain is in the lower lumbar segments. Will sometimes get pain that goes down the buttocks R>L. He had Lumbar RFA providing siginificant pain relife, today his pain is 0/10, and worse pain is 3-4/10 somedays. His shooting pain since last right S1 TF injection completry improved, he denies any shooting pain since then He denies any numbness/paresthesias or weakness in the lower limbs. No changes with bowel/bladder habits. PREVIOUS THERAPIES: - Physical Therapy - Has worked with PT. Is active with exercises. PAIN RELEVANT MEDICATIONS: - gabapentin 400 mg bid OTHER RELEVANT MEDIATIONS: - apixaban (a-fib) MEDICATION RECONCILIATION: OUTPT MEDICATIONS: DRUG STATUS SIG LISINOPRIL 20MG TAB ACTIVE SIG: TAKE ONE TABLET BY MOUTH EVERY DAY FOR HIGH BLOOD PRESSURE. TESTOSTERONE 1.62% 20.25MG/PUMP TOP GEL ACTIVE SIG: APPLY 2 PUMPS TOPICALLY ONCE A DAY FOR LOW TESTOTERONE APIXABAN 2.5MG TAB ACTIVE SIG: TAKE ONE TABLET BY MOUTH EVERY 12 HOURS TO PREVENT BLOOD CLOTS/STROKES ACCU-CHEK GUIDE (GLUCOSE) TEST STRIP ACTIVE SIG: USE 1 STRIP FOUR TIMES A DAY FOR BLOOD SUGAR TESTING TO CHECK BLOOD SUGAR--USE WITHIN 3 MINUTES OF REMOVING FROM CONTAINER AMLODIPINE BESYLATE 10MG TAB ACTIVE SIG: TAKE ONE TABLET BY MOUTH EVERY DAY FOR BLOOD PRESSURE. AMIODARONE HCL (PACERONE) 200MG TAB ACTIVE SIG: TAKE ONE TABLET BY MOUTH EVERY DAY INDEFINITELY FOR AFIB GABAPENTIN 400MG CAP ACTIVE SIG: TAKE ONE CAPSULE BY MOUTH TWICE A DAY FOR NEUROPATHIC PAIN TAMSULOSIN HCL 0.4MG CAP ACTIVE SIG: TAKE ONE CAPSULE BY MOUTH EVERY DAY The medication list above was reviewed with the patient at today's visit.VITALS SIGNS: VS - Vital Signs Measurement DT TEMP PULSE RESP BP HT WT F(C) IN(CM) LB(KG)[BMI] ---- ----- ---- -- ------ 10/13/2024 10:49 97.6(36.4) 78 104/65 197(89.5)[32*] Measurement DT CVP POx CG CMH20(MMHG) (L/MIN)(%) IN(CM) ------ 10/13/2024 10:49 99 Measurement DT Pain ---- 01/08/2024 12:46 3 PHYSICAL EXAM: GEN: well developed, well-nourished patient in no apparent distress HEENT: normocephalic, conjunctiva & throat clear SKIN: anicteric, no rashes, no bruises MUSCULOSKELETAL: LUMBAR SPINE Posture is: straightening of normal lordotic curve There are no tender points with palpation in lower lumbar paraspinals. Range of motion is: in flexion in extension in rotation in sidebending ASSESSMENT: Mr. Velasco is a 89 year old MALE with a PMH significant for DM, HTN, HLD, anxiety, a-fib, Eliseo's esophagus, and Psoriasis who is known to our clinic for a history of chronic low back pain. He has the following pain relevant problems: 1. Low back pain - Most consistent with lumbar spondylosis. Spondylosis likely multifactorial with some degree of inflammatory arthropathy associated with psoriatic arthritis as well as some degree of pain relating to more degenerative sources. There is myofascial pain overlying spondylosis as well. 2. lumcosacral Radiculopathy PLAN: 1. Therapy: cont with home exercise program. 2. Medications: No changes. 4. Interventions: Currently he does not have any pain, he could call and make appoinemtn for lumbar RFA if pain getting worse -Imaging: No 5. F/U: As needed Patient Education of Treatment Plan: Patient's condition was discussed in detail. They were involved in shared decision making and denied further questions. Total time spent on chart review, history taking, physical examination, patient education, coordination of care, and documentation: 32 minutes .Toya Brumfield /dino/ Toya Brumfield MD Resident Signed: 10/13/2024 12:20 10/13/2024 ADDENDUM STATUS: COMPLETED I have personally seen and examined the pt and have also reviewed the clinical presentation and progress note including the pertinent radiographs with the fellow. I agree with the treatment plan as outlined. This plan was reviewed on the date of the note attached. ASSESSMENT: Please see fellow's note for full assessment. My additions are as follows: 1. Low back pain most consistent with a combination of spondylosis and radiculitis. Spondylosis seems to be the primary contributor at this point. Had very good relief with previous radiofrequency ablations. PLAN: Please see fellow's note for full plan. My additions are as follows: - Cont with home exercise program. has good insight into importance. - OK to repeat radiofrequency ablations when pain gets more severe/constant. At this point, will hold off. - I would not recommend further changes beyond those discussed above. The pt will f/u with his PC team for further medical needs. Should their pain condition change significantly or pain team insight be needed for any reason within the next 3 yrs, they can f/u with my office. If this occurs after 3 yrs, would request that PC team write for new Pain Medicine Consult at that point. - Patient Education of Treatment Plan: Patient's condition was discussed in detail. They were involved in shared decision making and denied further questions. /es/ BULMARO WOOD DO Staff Physician Signed: 10/13/2024 12:42 12/03/2024 ADDENDUM STATUS: COMPLETED RNCM contacted after being alerted in a contact note that he was wanting a follow up appointment. Chart reviewed. Per pt's last clinic visit on 10/13/2024 above, Dr. Wood recommended pt continue with his exercise program and could repeat his bilateral lumbar RFA procedure if pain became more severe. Pt. states that he has had a bilateral dull ache in his back which has been constant for the last week. When he has to sit for a long time, he experiences about 10 seconds of sharp pain upon standing straight. He uses his cane carefully and also uses the truong when walking to avoid falling- as his left leg feels slightly weak after sitting awhile. Kenai states this is the type of pain that was helped with the ablation he had last January. He feels a repeat procedure would be helpful for this. Pt. was scheduled for a Bilateral lumbar RFA procedure on 12/29. He was informed he will get a call from a pain procedure nurse with instructions on holding his Apixaban. Kenai verbalized understanding and was in agreement with this plan. /dino/ TAWANNA GOMEZ Staff Nurse Signed: 12/03/2024 12:28 BELÉN BRUMFIELD [facility] Oct 13, 2024 10:54 AM PHYSICAL MEDICINE REHAB NURSING NOTE: LOCAL TITLE: REHAB MEDICINE CLINIC NURSING NOTE STANDARD TITLE: PHYSICAL MEDICINE REHAB NURSING NOTE DATE OF NOTE: OCT 13, 2024@10:54 ENTRY DATE: OCT 13, 2024@10:54:56 AUTHOR: ETHEL MCCORMICK EXP COSIGNER: URGENCY: STATUS: COMPLETED Type of visit:RTC Appointment Check In Reason for Visit: RTC Vital Signs: Blood Pressure: 104/65 (10/13/2024 10:49) Pulse: 78 (10/13/2024 10:49) Respiration: 16 (07/14/2024 14:44) Temperature: 97.6 F [36.4 C] (10/13/2024 10:49) Weight: 197.4 lb [89.54 kg] (10/13/2024 10:49) Height: 65.75 in [167.0 cm] (11/19/2023 11:20) BMI: 32.2 Pain: 1 (07/14/2024 14:44) Allergies: PENICILLIN (2008) EMPAGLIFLOZIN (Aug 21, 2022) Medications: Non-VA/Over the Counter/Herbal Medications: Patient reports taking outside and/or herbal medications. [facility] medication list has been updated to reflect changes and/or new medications. See list below. Active Outpatient Medications and Supplies: Active Outpatient Medications (including Supplies): Active Outpatient Medications Status 1) ACCU-CHEK GUIDE (GLUCOSE) TEST STRIP USE 1 STRIP FOUR ACTIVE TIMES A DAY TO CHECK BLOOD SUGAR--USE WITHIN 3 MINUTES OF REMOVING FROM CONTAINER Indication: FOR BLOOD SUGAR TESTING 2) AMIODARONE HCL (PACERONE) 200MG TAB TAKE ONE TABLET BY MOUTH ACTIVE EVERY DAY INDEFINITELY FOR AFIB 3) AMLODIPINE BESYLATE 10MG TAB TAKE ONE TABLET BY MOUTH EVERY ACTIVE DAY FOR BLOOD PRESSURE. 4) APIXABAN 2.5MG TAB TAKE ONE TABLET BY MOUTH EVERY 12 HOURS ACTIVE TO PREVENT BLOOD CLOTS/STROKES 5) GABAPENTIN 400MG CAP TAKE ONE CAPSULE BY MOUTH TWICE A DAY ACTIVE FOR NEUROPATHIC PAIN 6) INSULIN,GLARGINE-YFGN 100UNIT/ML PEN 3ML INJECT 22 UNITS HOLD UNDER THE SKIN EVERY DAY Indication: FOR DIABETES 7) LISINOPRIL 20MG TAB TAKE ONE TABLET BY MOUTH EVERY DAY ACTIVE Indication: FOR HIGH BLOOD PRESSURE. 8) TAMSULOSIN HCL 0.4MG CAP TAKE ONE CAPSULE BY MOUTH EVERY DAY ACTIVE 9) TESTOSTERONE 1.62% 20.25MG/PUMP TOP GEL APPLY 2 PUMPS ACTIVE TOPICALLY ONCE A DAY FOR LOW TESTOTERONE Active Non-VA Medications Status 1) Non-VA ACETAMINOPHEN 325MG TAB 650MG MOUTH NEEDED ACTIVE 2) Non-VA BETA SITOSTEROL CAP/TAB 3 MOUTH EVERY DAY ACTIVE 3) Non-VA CALCIUM CARBONATE TAB 3-4 TABLETS MOUTH EVERY DAY ACTIVE NEEDED 4) Non-VA CHONDROITIN/GLUCOSAMINE CAP/TAB MOUTH EVERY DAY ACTIVE 5) Non-VA CINNAMON CAP/TAB EVERY DAY ACTIVE 6) Non-VA LORATADINE 10MG TAB 10MG MOUTH NEEDED ACTIVE 7) Non-VA MULTIVITAMIN CAP/TAB 1 TABLET MOUTH EVERY DAY ACTIVE 8) Non-VA SODIUM CHLORIDE 0.65% SOLN,SPRAY,NASAL QD EACH ACTIVE NOSTRIL EVERY DAY NEEDED 9) Non-VA TURMERIC CAP/TAB 1 TAB MOUTH EVERY DAY ACTIVE 18 Total Medications Patient reports the following changes regarding the current pharmacy list of medications: pt reports no longer taking loratadine or beta sitosterol The above medication list confirmed with patient. A copy of the above medication list given to the MD for review and update. Provider will give printed copy of medication list to patient with any changes documented on printed medication list. /dino/ ETHEL MCCORMICK Signed: 10/13/2024 10:58 ETHEL MCCORMICK [facility]
--- OUTSIDE RECORDS SUMMARY | 2024-11-16 09:00 | XMS_ITS | Encounter Summary ---
Author Name [facility] Address [address] [place] [address] Care Team Providers Care Education Specialist Name Role Phone EDUIN SLATER [...] PART B Feb 14, 2002 PART B [id number] [phone] KRISTAMAGY ERT PATIENT MEDICARE (WNR) MEDICARE (M) PART B Feb 14, 2002 PART B [id number] KRISTAMAGY ERT PATIENT MEDICARE (WNR) MEDICARE (M) PART A Feb 15, 1992 PART A [id number] [phone] KRISTAMAGY ERT PATIENT MEDICARE (WNR) MEDICARE (M) PART A Feb 15, 1992 PART A [id number] [phone] KRISTA,MAGY ERT PATIENT Selected Encounter This section includes the information on record at [place] for the Encounter. Date/Time Encounter Type Encounter Description Reason Provider Source Nov 16, 2024 02:00 PM OFFICE O/P EST MOD 30 MIN PRIMARY CARE/MEDICINE ICD-10-CM I10 Essential (primary) hypertension [facility] Encounter Template Text not used by [place] Assessments - Encounter Diagnoses This section includes the primary and secondary diagnoses documented for the Encounter. Date/Time Primary/Secondary Diagnosis Diagnosis Name Provider Source Nov 16, 2024 04:15 PM PRIMARY Essential (primary) hypertension TONI ELDRIDGE [facility] Nov 16, 2024 04:15 PM SECONDARY Hyperlipidemia, [facility] Nov 16, 2024 04:15 PM SECONDARY Morbid (severe) obesity due to excess calories [facility] Nov 16, 2024 04:15 PM SECONDARY Testicular [facility]ofunction [facility] Nov 16, 2024 04:15 PM SECONDARY Type 2 diabetes mellitus with hyperglycemia [facility] Plan of Treatment: Future Appointments (+ 6 months) and Future Tests (+/- 45 days) The Plan of Treatment section includes future care activities for the patient from all [facility]. This section includes future appointments and future orders which are active, pending or scheduled. Future Appointments This section includes appointments that were scheduled to occur 6 months from the date of the Encounter, up to a maximum of 20 appointments. The data comes from all [facility]. Appointment Date/Time Appointment Type Appointme nt Facility Name Dec 01, 2024 02:40 PM AMBULATORY - SURGERY [facility] Dec 01, 2024 03:00 PM AMBULATORY - SURGERY [facility] Dec 29, 2024 10:00 AM AM[facility]ULATORY - [facility] Jan 11, 2025 10:02 AM [facility] February 02, 2025 11:00 AM AMBULATORY - SURGERY [facility] 2025 01:00 PM AMBULATORY - [facility]IC[facility] Mar 17, 2025 07:40 AM AMBULATORY - REHAB [facility] Active, Pending, and Scheduled Orders This section includes a listing of several types of active, pending, and scheduled orders, including clinic medications orders, diagnostic test orders, procedure orders and consult orders; where the start date of the order is 45 days before the date of the Encounter or 45 days after the date of theEncounter. The data comes from all [facility] facilities. Test Date/Time Test Type Test Details Facility Name Oct 16, 2024 12:00 AM Laboratory - Chemistry Order COMPREHENSIVE METABOLIC PANEL+MG PLASMA SP ONCE [facility] Oct 16, 2024 12:00 AM Laboratory - Chemistry Order CBC BLOOD SP [facility] Lab Results: +/- 30 days of the encounter This section includes the Chemistry and Hematology Lab Results on record with [place] for the patient. Radiology Reports and Pathology Reports are provided separately, in subsequent sections. Lab Results This section contains the Chemistry/Hematology Results that were resulted 30 days before or 30 daysafter the date of the Encounter. Date/Time Source Result Type Result - Unit Interpretation Reference Range Specimen Type Comment Nov 16, 2024 12:23 PM [facility] HEMOGLOBIN A1C BLOOD Specimen Type: BLOOD Comment: Values obtained from A1C measurements can vary. For typical A1C assays, a reported value of 7.0 could actually be between 6.7 and 7.3 if measured by a reference method. A reported value of 9.0 could actually be between 8.7 and 9.3. Ref: http://www.ngsp .org/CAPdata.as p Ordering Provider: BOB TRAMMELL Report Released Date/Time: Nov 19, 2023 12:24 PM Reporting Lab: [facility] [id number] Performing Lab: [facility] [id number] HEMOGLOBIN A1C 6.1 H 4.0-6.0 Nov 16, 2024 12:23 PM [facility] CBC BLOOD Specimen Type: BLOOD No comment entered. Ordering Provider: BOB TRAMMELL Report Released Date/Time: Nov 19, 2023 12:24 PM Reporting Lab: [facility] [id number] Performing Lab: [facility] [phone] WBC 7.5 4.0-11.0 RBC 4.04 L 4.60-6.20 HGB 12.7 g/dL L 13.5-17.9 HCT 39.6 L 41.0-54.0 MCV 98.0 fL 80.0-100.0 MCH 31.4 pg 27.0-33.0 MCHC 32.1 g/dL 32.0-37.5 PLT 145 L 150-400 MPV 12.4 fL 9.1-13.0 RDW 12.9 11.5-14.5 Nov 16, 2024 12:23 PM [facility] TSH W/REFLEX TO FREE T4 PLASMA Specimen Type: PLASMA Comment: Values obtained from A1C measurements can vary. For typical A1C assays, a reported value of 7.0 could actually be between 6.7 and 7.3 if measured by a reference method. A reported value of 9.0 could actually be between 8.7 and 9.3. Ref: http://www.ngsp.org/CAPdata.asp Ordering Provider: BOB TRAMMELL Report Released Date/Time: Nov 19, 2023 12:24 PM Reporting Lab: [facility] [id number] Performing Lab: [facility] [id number] TSH 1.61 u[IU]/mL 0.35-4.94 Nov 16, 2024 12:23 PM [facility] COMPREHENSIVE METABOLIC PANEL+MG PLASMA Specim en Type: PLASMA Comment: Values obtained from A1C measurements can vary. For typical A1C assays, a reported value of 7.0 could actually be between 6.7 and 7.3 if measured by a reference method. A reported value of 9.0 could actually be between 8.7 and 9.3. Ref: http://www.ngsp.org/CAPdata.asp Ordering Provider: BOB TRAMMELL Report Released Date/Time: Nov 19, 2023 12:24 PM Reporting Lab: [facility] [phone] Performing Lab: [facility] [phone] CREATININE 1.8 mg/dL H 0.7-1.2 UREA NITROGEN 26 mg/dL 8-26 GLUCOSE 133 mg/dL H 70-100 SODIUM 139 mmol/L 136-145 POTASSIUM 4.3 mmol/L 3.5-5.1 CHLORIDE 108 mmol/L H 98-107 CO2 25 mmol/L 22-29 CALCIUM 8.9 mg/dL 8.4-10.2 PROTEIN,TOTAL 6.5 g/dL 6.4-8.3 ALBUMIN 4.1 g/dL 3.5-5.0 BILIRUBIN, TOTAL 0.7 mg/dL 0.2-1.2 MAGNESIUM 1.8 mg/dL 1.6-2.6 ANION GAP 6 mmol/L 5-15 ALKALINE PHOSPHATASE 83 U/L 40-150 ALT/SGPT 64 U/L H <44 AST/SGOT 46 U/L H 11-34 .CREAT EGFR(CKD-EPI) 36 L >60 Vital Signs: All taken on the encounter date This section contains inpatient and outpatient Vital Signs collected on the date of the Encounter. Date/Time Temperature Pulse Blood Pressure Respiratory Rate SP02 Pain Height Weight Body Mass Index Source Nov 16, 2024 01:33 PM 107/66 [facility] Nov 16, 2024 01:26 PM 97.3 91 97/59 16 96 3 65.75 195 32 [facility] Social History: Smoking Status (Most current) and Tobacco Use (All prior to encounter date) This section includes the most current, and the historical, smoking and tobacco- related health factors from the [place] facility where the Encounter took place. Current Smoking Status This section includes the most current smoking, or tobacco-related health factor, from the [place] facility where the Encounter took place. Date/Time Current Smoking Status Comment Billie modi Nov 19, 2023 11:00 AM [place]-TOBACCO NEVER USED [facility] Tobacco Use History This section includes a history of the smoking, or tobacco-related health factors, that were collected on or before the date of the Encounter. The data comes from the [place] facility where the Encounter took place. Date/Time Smoking Status/Tobacco Use Comment Alda chicas Oct 09, 2022 11:00 AM VA-TOBACCO NEVER USED [facility] Sep 14, 2021 11:00 AM VA-TOBACCO NEVER USED [facility] Sep 01, 2020 10:30 AM VA-TOBACCO NEVER USED [facility] February 05, 2019 02:57 PM INPT NO TOBACCO USE IN LAST 30 D [facility] February 05, 2019 09:33 AM VA-TOBACCO NEVER USED [facility] Dec 19, 2017 04:35 PM LIFETIME NON-TOBACCO USER [facility] Jul 30, 2017 01:03 PM INPT NO TOBACCO USE IN LAST 30 D S [facility] Dec 13, 2016 09:35 AM LIFETIME NON-TOBACCO USER [facility] Dec 08, 2015 12:12 PM LIFETIME NON-TOBACCO USER [facility] Dec 30, 2014 01:48 PM LIFETIME NON-TOBACCO USER [facility] Dec 31, 2013 01:19 PM LIFETIME NON-TOBACCO USER [facility] Oct 17, 2006 01:30 PM LIFETIME NON-TOBACCO USER [facility] Advance Directives: All historical and current Section Date Range: From patient's date of to the date document was created. This section includes ALL of a patient's completed or amended [place] Advance and Rescinded Directives. The entries below indicate that a directive exists for the patient, but an actual copy is not included with this document. The data comes from all [facility]. Date Advance Directives Provider Source Aug 04, 2017 [facility]IN[facility] WARNING [facility] Jul 31, 2017 ADVANCE DIRECTIVE DISCUSSION ARNOLDO LUNDBERG [facility] Nov 09, 2003 ADVANCE DIRECTIVE SHARDA STANLEY [facility] Encounter Notes: All associated encounter notes This section contains the clinical notes associated to the Encounter. Date/Time Encounter Note(s) Provider Source Nov 16, 2024 03:57 PM INTERNAL MEDICINE NOTE: LOCAL TITLE: MEDICINE CLINIC NOTE STANDARD TITLE: INTERNAL MEDICINE NOTE DATE OF NOTE: NOV 16, 2024@15:57 ENTRY DATE: NOV 16, 2024@15:57:46 AUTHOR: SERGO ELDRIDGE I EXP COSIGNER: URGENCY: STATUS: COMPLETED MEDICINE CLINIC NOTE Has ADDENDA CHIEF COMPLAINT & REASON FOR VISIT GRIS WOLFF is a 89 year old MALE; they present today for a follow up of, or new complaint with the following: annual Nurse's Note Reviewed. HPI/ROS: Overall doing well -Notes itchy back at time. -Depressed mood. Denies feelings of hurting himself or others. Very active in supporting his family. Mood possibly worsened as of late -Sometimes does note dizzy spells if he stands up after stitting down. -Otherwise trying to stay active and eat better. PAST MEDICAL HISTORY/ACTIVE PROBLEMS: Active problems - Computerized Problem List is the source for the followin. Hypertension (SNOMED CT 02850271) 2. Generalized anxiety disorder 3. Hyperlipidemia 4. Obesity (SNOMED CT 818109239) 5. Benign tumour of pituitary gland (SNOMED CT 26824472) 6. Diabetes mellitus (SNOMED CT 47548739) 7. Chronic kidney disease stage 3 (SNOMED CT 880613469) 8. Psoriasis with arthropathy (SNOMED CT 98527682) - only on topicals 9. Splenomegaly 10. Bilateral hearing loss 11. Chronic sinusitis 12. Atrial fibrillation and flutter - on Apixaban and amiodarone 13. 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 Obstructive sleep apnea syndrome - does not wear his CPAP 16. Cholelithiasis 17. Long-term current use of anticoagulant 18. Psoriasis 19. Exposure to potentially hazardous substance ([facility] [id number]) - Entered through [facility] E[employer] Documentation [facility] 20. Lumbar spondylosis Allergies: PENICILLIN (2008) EMPAGLIFLOZIN (Aug 21, 2022) Active Outpatient Medications (excluding Supplies): Outpatient Medications Status 1) ACCU-CHEK GUIDE (GLUCOSE) TEST STRIP USE 1 STRIP FOUR ACTIVE TIMES A DAY TO CHECK BLOOD SUGAR--USE WITHIN 3 MINUTES OF REMOVING FROM CONTAINER Indication: FOR BLOOD SUGAR TESTING 2) AMIODARONE HCL (PACERONE) 200MG TAB TAKE ONE TABLET BY MOUTH ACTIVE (S) EVERY DAY INDEFINITELY FOR AFIB 3) AMLODIPINE BESYLATE 10MG TAB TAKE ONE TABLET BY MOUTH EVERY ACTIVE DAY FOR BLOOD PRESSURE. 4) APIXABAN 2.5MG TAB TAKE ONE TABLET BY MOUTH EVERY 12 HOURS ACTIVE TO PREVENT BLOOD CLOTS/STROKES 5) GABAPENTIN 400MG CAP TAKE ONE CAPSULE BY MOUTH TWICE A DAY ACTIVE (S) FOR NEUROPATHIC PAIN 6) INSULIN,GLARGINE-YFGN 100UNIT/ML PEN 3ML INJECT 22 UNITS HOLD UNDER THE SKIN EVERY DAY Indication: FOR DIABETES 7) TAMSULOSIN HCL 0.4MG CAP TAKE ONE CAPSULE BY MOUTH EVERY DAY ACTIVE (S) 8) TAMSULOSIN HCL 0.4MG CAP TAKE ONE CAPSULE BY MOUTH EVERY DAY PENDING Non-VA Medications Status 1) Non-VA ACETAMINOPHEN 325MG [...] CAP/TAB 1 TAB MOUTH EVERY DAY ACTIVE 17 Total Medications MEDICATION RECONCILIATION Outpatient At this visit I have reviewed the medication list, and discussed relevant medications with the patient/surrogate. An updated patient medication list was given to the participant(s). ( ) No Change ( X ) Change/New: I have noted this on the patient's copy of the medication list. Education on NEW Medication: I have reviewed the medication list for possible drug:drug interactions or contraindications prior to ordering NEW medications during this visit. ( X )Patient instructed. I noted new medication on patient's copy of the medication list. Patient sent to Pharmacist for education on new medication. ( )Patient ( )Family Member ( )Caregiver indicated readiness to learn and has been instructed on action, dose, frequency and side effects of the new medication and I noted new medication on participant's copy of the medication list. ( ) Verbalizes understanding of instructions. ( ) Needs additional reinforcement of instructions(sent to Pharmacist). ( )Patient unable to participate in learning/instruction. PHYSICAL EXAM VS: Temp: 97.3 F [36.3 C] (11/16/2024 13:26) BP: 107/66 (11/16/2024 13:33) Pulse:91 (11/16/2024 13:26) Resp: 16 (11/16/2024 13:26) Pain: 3 (11/16/2024 13:26) Weight: WEIGHTS IN LAST 6 MONTHS - NONE FOUND O2 sat: 96% (11/16/2024 13:26) General: Well-appearing adult, resting in exam room chair. Conversational. NAD. HEENT: Mucous membranes moist. Nonicteric sclera. Pulmonary: Unlabored breathing with even chest rise. Cardiac: Regular rate and regular rhythm. No extra heart sounds. Abdomen: Soft, non-distended. Bowel sounds present. Neuro: No gross deficits appreciated. Psych: Mood and affect appropriate for situation. Skin: Central lower back with evidence of recent excoration. No primary cutaneous eruption appreciated. LABS & IMAGING Recent labs reviewed in [facility]. Relevant findings, if present, listed below. Cr stable. Slight elevation in AST/ALT. A1c down from previous years. ASSESSMENT AND PLAN: Assessment and Plan: Gris Wolff is an 89 y/o M with a PMH of HTN, HLD, DM2 on insulin, non- functionary pituitary macroadenoma, paroxysmal atrial fibrillation on DOAC + amiodarone, Yun's esophagus, who presents to clinic for annual. # Depressed mood Patient with intermittent episodes of depressed mood that he describes as melancholy. No SI/HI. Recommended referral to MH. defers today. # Pruiritis without rash - start Sarna lotion # HTN Home BPs 120s-130s/60s-70s. Blood pressure check in clinic c/f overtreatment (90s/60s). Recommended reduction of one BP med, to which was amenable. - Lisinopril 20 - Amlodipine 5 (new change today) - Continue home BP checking daily # HLD Discussed discontinuing statin 2/2 age and decreased long-term benefit, patient would like to continue this medication at this time. - Atorvastatin 40 - Recheck lipid panel today # DM2 on insulin # Diabetic neuropathy Last saw Hamida eHadley 07/2023, who instructed patient at that time to give glargine based on nighttime readings, has been utilizing 16-22 units depending on the night. A1C 6.1 as of most recent. - Will check A1C today - Gabapentin 400 mg BID # Non-functioning pituitary macroadenoma Last saw metabolic clinic in 05/2023, follows with them annually. MRI Brain in 07/2023 was stable without change, plan is to continue with annual visits and monitoring and avoid resection if possible. No headaches or vision changes today. - Continue to monitor via metabolic clinic # Paroxysmal atrial fibrillation/flutter # [id number] Score 6 DCCV + amiodarone 01/2019, successful in SR to patient's knowledge since. Sees cardiology annually. In NSR today on exam. - Continue apixaban 2.5 mg BID (dose reduced for CKD, age) - Continue amiodarone 200 mg QD - Will check TSH, LFTs today # Yun's esophagus Last EGD in 2019 with no dysplasia. No further specific surveillance advised given age and comorbidities per last EGD evaluation. - Continue omeprazole 20 mg QD indefinitely # BPH - Could not recall being on tamsulosin. Rx appears . - Renewed tamsulosin Rx. #Vaccination; defers all - TDAP: deferred today - COVID: not supposed to get - Influenza: not supposed to get - Pneumonia: received today #HCM: -Depression: PCMHI consult placed -HTN: controlled -Obesity/BMI > 30: loss of 6 lbs in last year, will continue dietary efforts -Lipid panel: obtaining updated panel today as on statin -HIV infection: never obtained -Hepatitis C screening: negative 2016 -Colorectal cancer screening: > aged out as over 75 [address] staff[address] with Dr[address] Ana Garcia RTC in 12m + labs. Sergo Eldridge PGY-5, Med-Derm Education on Treatment Plan: Patient indicates readiness [...] medicines under the med tab as appropriate. Dictation software was used in the writing of this note. While every effort is made to ensure typos/ phonographic errors are corrected, some may circumvent this proofreading process. Your understanding is kindly appreciated. /dino/ SERGO ELDRIDGE MD RESIDENT Signed: 11/16/2024 16:15 Receipt Acknowledged By: 11/16/2024 21:45 /cristela Garcia MD Physician 11/16/2024 ADDENDUM STATUS: COMPLETED I have reviewed this patient's history (obtained by resident physician) and when appropriate, pertinent physical examination (obtained by resident physician), laboratory, and radiologic or other diagnostic tests with the resident physician evaluating this patient. I agree with the treatment plan as outlined. This plan was reviewed with the resident physician on the date of resident physician note. /cristela Garcia MD Physician Signed: 11/16/2024 21:46 JAZMYNSERGO Godfrey [facility] Nov 16, 2024 01:28 PM INTERNAL MEDICINE OUTPATIENT NOTE: LOCAL TITLE: MEDICINE CLINIC NURSING NOTE STANDARD TITLE: INTERNAL MEDICINE OUTPATIENT NOTE DATE OF NOTE: NOV 16, 2024@13:28 ENTRY DATE: NOV 16, 2024@13:29:03 AUTHOR: KATE VALDOVINOS COSIGNER: URGENCY: STATUS: COMPLETED TYPE OF VISIT: Appointment Check In Type of appointment: In-person appointment REASON FOR VISIT: annual ALLERGIES: PENICILLIN (2008) EMPAGLIFLOZIN (Aug 21, 2022) VITAL SIGNS: Blood Pressure: 97/59 (11/16/2024 13:26) rechecked 107/66 Pulse: 91 (11/16/2024 13:26) Respiration: 16 (11/16/2024 13:26) Temperature: 97.3 F [36.3 C] (11/16/2024 13:26) Weight: 195 lb [88.45 kg] (11/16/2024 13:26) Height: 65.75 in [167.0 cm] (11/16/2024 13:26) BMI: 31.8 O2 Sat: 96% (11/16/2024 13:26) Pain: 3 (11/16/2024 13:26) MEDICATION Over the Counter/Herbal Medications: The patient denies taking any outside medications or herbals. Alcohol Use Screen (AUDIT-C): Alcohol Screen: SCREEN FOR ALCOHOL (AUDIT-C) An alcohol screening test (AUDIT-C) was negative (score=1). 1. How often did you have a drink containing alcohol in the past year? Consider a drink to be a 12 ounce can or bottle of regular beer, 8 ounces of malt liquor, a 5 ounce glass of table wine, or a 1.5 ounce shot of liquor (like scotch, gin, or vodka). Monthly or less 2. How many drinks containing alcohol did you have on a typical day when you were drinking in the past year? One or two drinks 3. How often did you have six or more drinks on one occasion in the past year? Never Influenza Immunization: Deferral / Refusal The patient declines to receive the recommended dose of seasonal influenza vaccine. Immunization: INFLUENZA, UNSPECIFIED FORMULATION Refusal Reason: PATIENT DECISION Patient refuses all immunization(s) in the FLU group Date Documented: 11/16/24 13:30 COVID-19 Immunization: Refused Pfizer Monovalent COVID-19 vaccine Immunization: COVID-19 (PFIZER), MRNA, LNP-S, PF, GAVIN-SUCROSE, 30 MCG/0.3 ML (AGES 12+ YEARS) Refusal Reason: PATIENT DECISION Patient refuses all immunization(s) in the COVID-19 group Date Documented: 11/16/24 13:31 RSV Immunization: Respiratory Syncytial Virus (RSV) Vaccine: Refused [employer], an [employer] ([employer], RSVpreF vaccine). Immunization: RSV, BIVALENT, PROTEIN SUBUNIT RSVPREF, DILUENT RECONSTITUTED, 0.5 ML, PF Refusal Reason: PATIENT DECISION Patient refuses all immunization(s) in the RSV group Date Documented: 11/16/24 13:31 Td/Tdap Immunization: The patient declines to receive the recommended dose of Td/Tdap vaccine. Immunization: TD(ADULT) UNSPECIFIED FORMULATION Refusal Reason: PATIENT DECISION Patient refuses all immunization(s) in the Td group Date Documented: 11/16/24 13:31 Herpes Zoster (Shingles) Vaccine: The patient declines to receive the recommended dose of zoster (shingles) vaccine. Immunization: ZOSTER RECOMBINANT Refusal Reason: PATIENT DECISION Patient refuses all immunization(s) in the ZOSTER group Date Documented: 11/16/24 13:31 /dino/ KATE VALDOVINOS LPN Signed: 11/16/2024 13:32 KATE VALDOVINOS [facility]
--- OUTSIDE RECORDS SUMMARY | 2024-12-01 09:40 | XMS_ITS | Encounter Summary ---
Author Name [facility] [place] Address [address] [place] [address] Care Team Providers Care Room Service Server Name Role Phone BRYON EDUIN Primary Care [...] PART B Feb 14, 2002 PART B [id number] [phone] KRISTAMAGY ERT PATIENT MEDICARE (WNR) MEDICARE (M) PART B Feb 14, 2002 PART B [id number] KRISTAMAGY ERT PATIENT MEDICARE (WNR) MEDICARE (M) PART A Feb 15, 1992 PART A [id number] KRISTAMAGY ERT PATIENT MEDICARE (WNR) MEDICARE (M) PART A Feb 15, 1992 PART A [id number] [phone] KRISTA,MAGY ERT PATIENT Selected Encounter This section includes the information on record at [place] for the Encounter. Date/Time Encounter Type Encounter Description Reason Provider Source Dec 01, 2024 02:40 PM EXTENDED VISUAL FIELD XM OPHTHALMOLOGY ICD-10-CM H53.453 Other localized visual field defect, bilateral EDUIN PATTON Zuhair Encounter Template Text not used by [place] Assessments - Encounter Diagnoses This section includes the primary and secondary diagnoses documented for the Encounter. Date/Time Primary/Secondary Diagnosis Diagnosis Name Provider Source Dec 01, 2024 03:26 PM PRIMARY Other localized visual field defect, bilateral IAMGENE MENDOZAEDUIN Napoleon [facility] Plan of Treatment: Future Appointments (+ 6 months) and Future Tests (+/- 45 days) The Plan of Treatment section includes future care activities for the patient from [facility] [place] [facility] This section includes future appointments and future orders which are active, pending or scheduled. Future Appointments This section includes appointments that were scheduled to occur 6 months from the date of the Encounter, up to a maximum of 20 appointments. The data comes from all [place] treatment facilities. Appointment Date/Time Appointment Type Appointme nt Facility Name Dec 29, 2024 10:00 AM AMBULATORY - [facility] Jan 11, 2025 10:02 AM AMBULATORY - MEDICINE [facility] February 02, 2025 11:00 AM AMBULATORY - SURGERY [facility] 2025 01:00 PM AMBULATORY - REHAB [facility] Mar 17, 2025 07:40 AM AMBULATORY - REHAB [facility] May 24, 2025 12:45 PM AMBULATORY - SURGERY [facility] May 25, 2025 02:20 PM AMBULATORY - MEDICINE [facility] Lab Results: +/- 30 days [...] Type Comment Nov 16, 2024 12:23 PM [facility] HEMOGLOBIN A1C BLOOD Specimen Type: BLOOD Comment: [...] Nov 19, 2023 12:24 PM Reporting Lab: [facility] [id number] Performing Lab: [facility] [id number] HEMOGLOBIN A1C 6.1 H 4.0-6.0 Nov 16, 2024 12:23 PM [facility] TSH W/REFLEX TO FREE T4 PLASMA Specimen [...] Nov 19, 2023 12:24 PM Reporting Lab: [facility] [id number] Performing Lab: [facility] [id number] TSH 1.61 u[IU]/mL 0.35-4.94 Nov 16, 2024 12:23 PM [facility] CBC BLOOD Specimen Type: BLOOD No comment entered. Ordering Provider: BOB TRAMMELL Report Released Date/Time: Nov 19, 2023 12:24 PM Reporting Lab: [facility] [id number] Performing Lab: [facility] [id number] WBC 7.5 4.0-11.0 RBC 4.04 L 4.60-6.20 HGB 12.7 g/dL L 13.5-17.9 HCT 39.6 L 41.0-54.0 MCV 98.0 fL 80.0-100.0 MCH 31.4 pg 27.0-33.0 MCHC 32.1 g/dL 32.0-37.5 PLT 145 L 150-400 MPV 12.4 fL 9.1-13.0 RDW 12.9 11.5-14.5 Nov 16, 2024 12:23 PM [facility] COMPREHENSIVE METABOLIC PANEL+MG PLASMA Specim en Type: [...] Nov 19, 2023 12:24 PM Reporting Lab: [facility] [id number] Performing Lab: [facility] [id number] CREATININE 1.8 mg/dL H 0.7-1.2 UREA NITROGEN [...] H 11-34 .CREAT EGFR(CKD-EPI) 36 L >60 Social History: Smoking Status (Most current) and Tobacco Use (All prior to encounter date) This section includes the most current, and the historical, smoking and tobacco- related health factors from the [facility] where the Encounter took place. Current Smoking Status This section includes the most current smoking, or tobacco-related health factor, from the [place] facility where the Encounter took place. Date/Time Current Smoking Status Comment Billie modi Nov 19, 2023 11:00 AM VA-TOBACCO NEVER USED [facility] Tobacco Use History This section includes a history of the smoking, or tobacco-related health factors, that were collected on or before the date of the Encounter. The data comes from the [place] facility where the Encounter took place. Date/Time Smoking Status/Tobacco Use Comment F acility Oct 09, 2022 11:00 AM VA-TOBACCO NEVER USED [facility] Sep 14, 2021 11:00 AM VA-TOBACCO NEVER USED [facility] Sep 01, 2020 10:30 AM VA-TOBACCO NEVER USED [facility] February 05, 2019 02:57 PM INPT NO TOBACCO USE IN LAST 30 D AYS [facility] February 05, 2019 09:33 AM VA-TOBACCO NEVER USED [facility] Dec 19, 2017 04:35 PM LIFETIME NON-TOBACCO USER [facility] Jul 30, 2017 01:03 PM INPT NO TOBACCO USE IN LAST 30 D AYS [facility] Dec 13, 2016 09:35 AM LIFETIME NON-TOBACCO USER [facility] Dec 08, 2015 12:12 PM LIFETIME NON-TOBACCO USER [facility] Dec 30, 2014 01:48 PM LIFETIME NON-TOBACCO USER [facility] Dec 31, 2013 01:19 PM LIFETIME NON-TOBACCO USER [facility] Oct 17, 2006 01:30 PM LIFETIME NON-TOBACCO USER [facility] Advance Directives: All historical and current Section [...] Aug 04, 2017 CLINICAL WARNING WIL DAVIS [facility] Jul 31, 2017 ADVANCE DIRECTIVE DISCUSSION ARNOLDO LUNDBERG [facility] Nov 09, 2003 ADVANCE DIRECTIVE [facility] Encounter Notes: All associated encounter notes This section contains the clinical notes associated to the Encounter. Date/Time Encounter Note(s) Provider Source Dec 01, 2024 02:41 PM OPHTHALMOLOGY TECH NICIAN NOTE: LOCAL TITLE: FOLDING MACHINE TENDER NOTE STANDARD TITLE: FOLDING MACHINE TENDER NOTE DATE OF NOTE: DEC 01, 2024@14:41 ENTRY DATE: DEC 01, 2024@14:41:45 AUTHOR: ION PATTON COSIGNER: URGENCY: STATUS: COMPLETED During testing pt had; Good cooperation and good fixation , OU A few additional misses , OS (2) in the last 2 min. of testing , still good fixation /es/ EDUIN A IAM KELLY,COMT CERTIFIED TURN DOWN WORKER Signed: 12/01/2024 15:24 EDUIN PATTON [facility]
--- OUTSIDE RECORDS SUMMARY | 2024-12-01 10:00 | XMS_ITS | Encounter Summary ---
Author Name [facility] [place] Address [address] [place] [address] Care Team Providers Care Automation Consultant Name Role Phone EDUIN SLATER Primary Care [...] PART B Feb 14, 2002 PART B [id number] [phone] NEWMAGY ERT PATIENT MEDICARE (WNR) MEDICARE (M) PART B Feb 14, 2002 PART B [id number] [phone] NEWMAGY ERT PATIENT MEDICARE (WNR) MEDICARE (M) PART A Feb 15, 1992 PART A [id number] NEWMAGY ERT PATIENT MEDICARE (WNR) MEDICARE (M) PART A Feb 15, 1992 PART A [id number] NEW,MAGY ERT PATIENT Selected Encounter This section includes the information on record at [place] for the Encounter. Date/Time Encounter Type Encounter Description Reason Provider Source Dec 01, 2024 03:00 PM OFFICE O/P EST MOD 30 MIN OPHTHALMOLOGY ICD-10-CM E11.9 Type 2 diabetes mellitus without complications GRAMATES,PEGG Y H E Encounter Template Text not used by [place] Assessments - Encounter Diagnoses This section includes the primary and secondary diagnoses documented for the Encounter. Date/Time Primary/Secondary Diagnosis Diagnosis Name Provider Source Dec 01, 2024 03:35 PM PRIMARY Type 2 diabetes mellitus without complications GRAMATES,PEGG Y H [facility] Dec 01, 2024 03:35 PM SECONDARY Drusen of optic disc, bilateral [facility] Dec 01, 2024 03:35 PM SECONDARY Other localized visual field defect, bilateral [facility] Dec 01, 2024 03:35 PM SECONDARY Other secondary cataract, left eye [facility] Dec 01, 2024 03:35 PM SECONDARY Presence of intraocular lens [facility] Plan of Treatment: Future Appointments (+ 6 months) and Future Tests (+/- 45 days) The Plan of Treatment section includes future care activities for the patient from [facility] [place] [facility]. This section includes future appointments and future orders which are active, pending or scheduled. Future Appointments This section includes appointments that were scheduled to occur 6 months from the date of the Encounter, up to a maximum of 20 appointments. The data comes from all [place] treatment facilities. Appointment Date/Time Appointment Type Appointme nt Facility Name Dec 29, 2024 10:00 [facility] Jan 11, 2025 10:02 AM [facility]ULAT[facility] - MEDICINE [facility] February 02, 2025 11:00 AM AMBULATORY - SURGERY [facility] 2025 01:00 PM AMBULATORY - REHAB [facility] Mar 17, 2025 07:40 AM AMBULATORY - REHAB [facility] May 24, 2025 12:45 PM AMBULATORY - SURGERY [facility] May 25, 2025 02:20 PM AMBULATORY - MEDICINE [facility] Lab Results: +/- 30 days of the encounter This section includes the Chemistry and Hematology Lab Results on record with [place] for the patient. Radiology Reports and Pathology Reports are provided separately, in subsequent sections. Lab Results This section contains the Chemistry/Hematology Results that were resulted 30 days before or 30 daysafter the date of the Encounter. Date/Time Source Result Type Result - Unit Interpretation Reference Range Specimen Type Comment Nov 16, 2024 12:23 PM [facility] HEMOGLOBIN A1C BLOOD Specimen Type: BLOOD [...] Nov 19, 2023 12:24 PM Reporting Lab: [facility] [id number] Performing Lab: [facility] [id number] HEMOGLOBIN A1C 6.1 H 4.0-6.0 Nov 16, 2024 12:23 PM [facility] TSH W/REFLEX TO FREE T4 PLASMA [...] Nov 19, 2023 12:24 PM Reporting Lab: [facility] [id number] Performing Lab: [facility] [id number] TSH 1.61 u[IU]/mL 0.35-4.94 Nov 16, 2024 12:23 PM [facility] CBC BLOOD Specimen Type: BLOOD No comment entered. Ordering Provider: BOB TRAMMELL Report Released Date/Time: Nov 19, 2023 12:24 PM Reporting Lab: [facility] [id number] Performing Lab: [facility] [address] WBC 7.5 4.0-11.0 RBC 4.04 L 4.60-6.20 HGB 12.7 g/dL L 13.5-17.9 HCT 39.6 L 41.0-54.0 MCV 98.0 fL 80.0-100.0 MCH 31.4 pg 27.0-33.0 MCHC 32.1 g/dL 32.0-37.5 PLT 145 L 150-400 MPV 12.4 fL 9.1-13.0 RDW 12.9 11.5-14.5 Nov 16, 2024 12:23 PM [facility] COMPREHENSIVE METABOLIC PANEL+MG PLASMA Specim en [...] Nov 19, 2023 12:24 PM Reporting Lab: [facility] [id number] Performing Lab: [facility] [address] CREATININE 1.8 mg/dL H 0.7-1.2 UREA NITROGEN [...] and tobacco- related health factors from the [place] facility where the Encounter took place. Current Smoking Status This section includes the most current smoking, or tobacco-related health factor, from the [place] facility where the Encounter took place. Date/Time Current Smoking Status Comment Billie modi Nov 19, 2023 11:00 AM [place]-TOBACCO NEVER USED [facility] Tobacco Use History This section includes a history of the smoking, or tobacco-related health factors, that were collected on or before the date of the Encounter. The data comes from the [place] facility where the Encounter took place. Date/Time Smoking Status/Tobacco Use Comment Alda acgraciela Oct 09, 2022 11:00 AM [place]-TOBACCO NEVER USED [facility] Sep 14, 2021 11:00 AM [place]-TOBACCO NEVER USED [facility] Sep 01, 2020 10:30 AM VA-TOBACCO NEVER USED [facility] February 05, 2019 02:57 PM INPT NO TOBACCO USE IN LAST 30 D [facility] February 05, 2019 09:33 AM [place]-TOBACCO NEVER USED [facility] Dec 19, 2017 04:35 PM LIFETIME NON-TOBACCO USER [facility] Jul 30, 2017 01:03 PM INPT NO TOBACCO USE IN LAST 30 D [facility] Dec 13, 2016 09:35 AM LIFETIME NON-TOBACCO USER [facility] Dec 08, 2015 12:12 PM LIFETIME NON-TOBACCO USER [facility] Dec 30, 2014 01:48 PM LIFETIME NON-TOBACCO USER [facility] Dec 31, 2013 01:19 PM LIFETIME NON-TOBACCO USER [facility] Oct 17, 2006 01:30 PM LIFETIME NON-TOBACCO USER [facility] Advance Directives: All historical and current Section Date Range: From patient's date of to the date document was created. This section includes ALL of a patient's completed or amended [place] Advance and Rescinded Directives. The entries below indicate that a directive exists for the patient, but an actual copy is not included with this document. The data comes from all [facility]. Date Advance Directives Provider Source Aug 04, 2017 CLINICAL WARNING WIL DAVIS [facility] Jul 31, 2017 ADVANCE DIRECTIVE DISCUSSION ARNOLDO LUNDBERG [facility] Nov 09, 2003 ADVANCE DIRECTIVE SHARDA STANLEY [facility] Encounter Notes: All associated encounter notes This section contains the clinical notes associated to the Encounter. Date/Time Encounter Note(s) Provider Source Dec 01, 2024 04:13 PM OPHTHALMOLOGY CONS ULT: LOCAL TITLE: OPHTHALMOLOGY IMAGING [facility] OUTPT CONSULT STANDARD TITLE: OPHTHALMOLOGY CONSULT DATE OF NOTE: DEC 01, 2024@16:13 ENTRY DATE: DEC 01, 2024@16:13:38 AUTHOR: JUSTIN SNOW EXP COSIGNER: URGENCY: STATUS: COMPLETED Requested test(s) done, OCT of rNFL OU results uploaded to gaming surveillance observer for review. /dino/ CHAN MANCIA CRA Marine Electronics Repairer Signed: 12/01/2024 16:13 JUSTIN SNOW [facility] Dec 01, 2024 03:17 PM OPHTHALMOLOGY TECH NICIAN NOTE: LOCAL TITLE: CONVEYOR WEIGHER OPERATOR NOTE STANDARD TITLE: CONVEYOR WEIGHER OPERATOR NOTE DATE OF NOTE: DEC 01, 2024@15:17 ENTRY DATE: DEC 01, 2024@15:18 AUTHOR: ANDRE CHAVEZ EXP COSIGNER: URGENCY: STATUS: COMPLETED Eye Start Exam Patient: GRIS VELASCO Sex: MALE SSN: [id number] Birthdate: [birth year] Chief complaint: Pituitary tumor follow up. Patient states blur LEFT>RIGHT since last exam. Eyes feel dry and uses drops as directed. LEFT eye can be sticky in the mornings but warm compress relieves it. History of Present Illness: Location: Intensity: Duration: Active Problems List: Active problems - Computerized Problem List is the source for the followin. Hypertension (SNOMED CT 27300637) 2. Generalized anxiety disorder 3. Hyperlipidemia 4. Obesity (SNOMED CT 756808610) 5. Benign tumour of pituitary gland (SNOMED CT 32554876) 6. Diabetes mellitus (SNOMED CT 58943064) 7. Chronic kidney disease stage 3 (SNOMED CT 793383657) 8. 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 Splenomegaly 10. Bilateral hearing loss 11. Chronic sinusitis 12. Atrial fibrillation and flutter - on Apixaban and amiodarone 13. 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 Obstructive sleep apnea syndrome - does not wear his CPAP 16. Cholelithiasis 17. Long-term current use of anticoagulant 18. Psoriasis 19. Exposure to potentially hazardous substance ([facility] [id number]) [facility] EZ Documentation Initiative 20. Lumbar spondylosis Surgeries: FEBRUARY 06, 2019 Proc: Cardioversion JANUARY 19, 2019 Proc: stealth guided functional endoscopic sinus surgery AUG 26, 2017 Proc: MRI Full Exam Eye Medications AT's 3-4 times daily Allergies: PENICILLIN (2008) EMPAGLIFLOZIN (Aug 21, 2022) No new Allergies. Past Medical History: Diabetes Collection DT Specimen Test Name Result Units Ref Range 11/16/2024 12:23 BLOOD !! HEMOGLOBIN A1C 6.1 H % 4.0 - 6.0 !! Indicates COMMENTS AVAILABLE...Refer to Interim Lab Report. Hypertension High cholesterol Heart disease Other: pituitary tumor Past eye history: Denies all Past eye surgeries: Cataract: OU Social History: Alcohol use - Yes Tobacco use - No Family History: Cancer Last refraction: Vision: OD:CC(with glasses) OD: 20/25+2 Pinhole: 20/ Near: 20/ Vision: OS:CC(with glasses) 0S: 20/60+2 Pinhole: 20/30-2 Near: 20/ Current glasses: OD:-0.75 +1.00X5 Prism: OS:-0.75 +0.14H648 Prism: Add: +2.50 Refraction: Manifest: YES Automated: NO OD:-0.75 +2.68G392 20/20 OS:-0.75 +0.87X866 20/40-1 Balance: Add: +2.75 Near vision: OD : OS : OU 25+2 Comment: Confrontational Thomas: Full to finger counting: Right: Left: Extra Ocular Movement: Normal Pupils: Right: Round Left: Round Size: Right: 2 Left: 2 React to light: Right: Yes Left: Yes Afferent pupil defect: Right:No Grade: Left: Yes Grade: Note: Intra-ocular pressure (IOP): OD: 11 OS: 11 iCare Dilation: mydriacyl 1% and neosynephrine OU Nov@15:44 /dino/ ANDRE CHAVEZ HEALTH DEICER INSPECTOR PNEUMATIC Signed: 12/01/2024 15:45 ANDRE CHAVEZ [facility] Dec 01, 2024 08:21 AM OPHTHALMOLOGY ATTE NDSTEW NOTE: LOCAL TITLE: OPHTHALMOLOGY CLINIC NOTE STANDARD TITLE: OPHTHALMOLOGY ATTENDING NOTE DATE OF NOTE: DEC 01, 2024@08:21 ENTRY DATE: DEC 01, 2024@08:21:53 AUTHOR: CB HINOJOSA EXP COSIGNER: URGENCY: STATUS: COMPLETED ID x [id number] New [id number] CC: Annual VTD MRx, OCT RNFL, HVF 30-2 HPI: HPI per tech. I agree with the findings as documented below: Pituitary tumor follow up. Patient states blur LEFT>RIGHT since last exam. Eyes feel dry and uses drops as directed. LEFT eye can be sticky in the mornings but warm compress relieves it. Vision: OD:CC(with glasses) OD: 20/25+2 Pinhole: 20/ Near: 20/ Vision: OS:CC(with glasses) 0S: 20/60+2 Pinhole: 20/30-2 Near: 20/ Current glasses: OD:-0.75 +1.00X5 Prism: OS:-0.75 +0.41L422 Prism: Add: +2.50 Refraction: Manifest: YES Automated: NO OD:-0.75 +2.35I046 20/20 OS:-0.75 +0.56V976 20/40-1 Balance: Add: +2.75 Near vision: OD : OS : OU 25+2 Comment: Confrontational Thomas: Full to finger counting: Right: Left: Extra Ocular Movement: Normal Pupils: Right: Round Left: Round Size: Right: 2 Left: 2 React to light: Right: Yes Left: Yes Afferent pupil defect: Right:No Grade: Left: Yes Grade: Note: Intra-ocular pressure (IOP): OD: 11 OS: 11 iCare Dilation: mydriacyl 1% and neosynephrine OU Previously: OCT RNFL 05/29/19: Thin ST/SN and borderline IT rim, no int loss; OS Thin ST/SN/IT and borderline N/T rim, no int loss. HVF 05/29/19: OD inf NS/arc, no change at least back to 2005; OS inf depression/arc+sup NS, no change for several years (but some fluctuation) HVF 30-2 06/18/23 OD inf defect (NS/arc), MD-2.97, no change compared to previous OS inf defect (NS/arc), MD-4.34, no change compared to previous OCT RNFL 06/18/23 OD G68, red ST SN, yellow IT, green T, IN, N- no change from previous 05/29/19 OS G65, red ST SN IT, yellow N, green T IN - no change from previous A and O x 3 ROS noncontrib SLE LL: dermatochalasis BUL, MGB OU, LLL nevus approx 3.5 mm diameter Conj: white and quiet OU K: clear, decr TBUT OU AC: deep and quiet OU Iris: flat, ph dilated OU Lens: PCIOL OU trace-1+ PCO OD, 1-2+ PCO OS DFE 78 and 20 D OU: OD: C:D 0.1,disc drusen, mac flat without MA or ME, nl vessels, periphery without holes,tears, or heme OS: C:D 0.1,disc drusen, mac flat without MA or ME, nl vessels, periphery without holes,tears, or heme HVF 30-2 12/01/24 OD left inf defect, MD -3.90, stable OS right inf defect, #FL, MD -4.02, stable OCT RNFL 12/01/24 OD G65, red ST SN yellow IT - stable 04/21/18 OS G62, red ST SN IT, yellow N - stable 05/19/19 A/P: Pleasant 89 yr old , past hx of G-B 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 [facility] Jul 2023. VF are stable - incongruous inf binasal defects Monitor 2) DM A1c 6.1 11/16/24 No ret DFE Monitor 3) Optic disc drusen OU Stable RNFL Monitor 4) PCIOL OU c vis. sign PCO OS - ret for YAG laser OS Monitor 5) RE - myopia/astig OU Wears +2.50 OTC readers Glasses Rx 12/01/24 Return 6 months VTD MRx, OCT RNFL/mac, sooner prn Greater than 30 minutes today spent in the examination of and discussion of plan of care with this . This excludes time spent in reviewing chart notes, reviewing today's testing, and chart documentation. /dino/ CB HINOJOSA MD STAFF SURGEON Signed: 12/01/2024 16:11 CB HINOJOSA [facility]
--- OUTSIDE RECORDS SUMMARY | 2024-12-29 05:00 | XMS_ITS | Encounter Summary ---
Author Name [facility] [facility] [place] [facility] [facility] [place] Address [address] [place] [address] Care Team Providers Care Chief Compressor Station Engineer Name Role Phone EDUIN SLATER Primary Care [...] PART B Feb 14, 2002 PART B [id number] [phone] KRISTAMAGY ERT PATIENT MEDICARE (WNR) MEDICARE (M) PART B Feb 14, 2002 PART B [id number] [phone] MAGY VELASCO ERT PATIENT MEDICARE (WNR) MEDICARE () PART A Feb 15, 1992 PART A [id number] [phone] MAGY VELASCO ERT PATIENT MEDICARE (WNR) MEDICARE (M) PART A Feb 15, 1992 PART A [id number] [phone] MAGY VELASCO ERT PATIENT Selected Encounter This section includes the information on record at [place] for the Encounter. Date/Time Encounter Type Encounter Description Reason Provider Source Dec 29, 2024 10:00 AM DESTROY L/S FACET [facility] ICD-10-CM M47.816 Spondylosis w/o myelopathy or radiculopathy, lumbar region LISET STILL IH[facility]air Encounter Template Text not used by [place] Assessments - Encounter Diagnoses This section includes the primary and secondary diagnoses documented for the Encounter. Date/Time Primary/Secondary Diagnosis Diagnosis Name Provider Source Dec 29, 2024 11:08 AM PRIMARY Spondylosis w/o myelopathy or radiculopathy, lumbar region LISET STILL [facility] Plan of Treatment: Future Appointments (+ 6 months) and Future Tests (+/- 45 days) The Plan of Treatment section includes future care activities for the [facility] [place] [facility] This section includes future appointments and future orders which are active, pending or scheduled. Future Appointments This section includes appointments that were scheduled to occur 6 months from the date of the Encounter, up to a maximum of 20 appointments. The data comes from all [place] treatment facilities. Appointment Date/Time Appointment Type Appointme nt Facility Name Jan 11, 2025 10:02 AM AMBULATORY - MEDICINE [facility] February 02, 2025 11:00 AM AMBULATORY - SURGERY [facility] 2025 01:00 [facility], 2025 07:40 AM AMBULAT[facility] - RE[facility]AB MED[facility] May 24, 2025 12:45 PM AMBULATORY - SURGERY [facility] May 25, 2025 02:20 PM AMBULATORY - MEDICINE [facility] Lab Results: +/- 30 days of the encounter This section includes the Chemistry and Hematology Lab Results on record with [place] for the patient. Radiology Reports and Pathology Reports are provided separately, in subsequent sections. Lab Results This section contains the Chemistry/Hematology Results that were resulted 30 days before or 30 daysafter the date of the Encounter. Date/Time Source Result Type Result - Unit Interpretation Reference Range Specimen Type Comment Jan 11, 2025 11:10 AM [facility] EXTRA MINT TUBE PLASMA Specimen Type: PLASMA No comment entered. Ordering Provider: MD AIMEE Report Released Date/Time: Jan 11, 2025 11:10 AM Reporting Lab: [facility] [id number] Performing Lab: [facility] [id number] EXTRA MINT TUBE RECEIVED Jan 11, 2025 11:10 AM [facility] EXTRA GOLD GEL TUBE SERUM Specimen Type: SERUM No comment entered. Ordering Provider: MD AIMEE Report Released Date/Time: Jan 11, 2025 11:10 AM Reporting Lab: [facility] [id number] Performing Lab: [facility] [id number] EXTRA GOLD GEL TUBE RECEIVED Jan 11, 2025 11:10 AM [facility] EXTRA BLUE TUBE PLASMA Specimen Typ e: PLASMA No comment entered. Ordering Provider: MD AIMEE Report Released Date/Time: Jan 11, 2025 11:10 AM Reporting Lab: [facility] [id number] Performing Lab: [facility] [id number] EXTRA BLUE TUBE RECEIVED Jan 11, 2025 11:10 AM [facility] COMPREHENSIVE METABOLIC PANEL+MG PLASMA Specimen Type: PLASMA No comment entered. Ordering Provider: YAAKOV MANDUJANO Report Released Date/Time: Jan 11, 2025 10:47 AM Reporting Lab: [facility] [id number] Performing Lab: [facility] [id number] CREATININE 1.6 mg/dL H 0.7-1.2 UREA NITROGEN 20 mg/dL 8-26 GLUCOSE 102 mg/dL H 70-100 SODIUM 138 mmol/L 136-145 POTASSIUM 4.5 mmol/L 3.5-5.1 CHLORIDE 107 mmol/L 98-107 CO2 23 mmol/L 22-29 CALCIUM 8.5 mg/dL 8.4-10.2 PROTEIN,TOTAL 6.1 g/dL L 6.4-8.3 ALBUMIN 3.6 g/dL 3.5-5.0 BILIRUBIN, TOTAL 0.7 mg/dL 0.2-1.2 MAGNESIUM 1.7 mg/dL 1.6-2.6 ANION GAP 8 mmol/L 5-15 ALKALINE PHOSPHATASE 84 U/L 40-150 ALT/SGPT 59 U/L H <44 AST/SGOT 52 U/L H 11-34 .CREAT EGFR(CKD-EPI) 41 L >60 Jan 11, 2025 11:10 AM [facility] CBC & DIFF BLOOD Specimen Type : BLOOD Comment: Automated Differential Performed Ordering Provider: YAAKOV MANDUJANO Report Released Date/Time: Jan 11, 2025 10:47 AM Reporting Lab: [facility] [id number] Performing Lab: [facility] [phone] WBC 6.4 4.0-11.0 RBC 3.84 L 4.60-6.20 HGB 12.3 g/dL L 13.5-17.9 HCT 36.9 L 41.0-54.0 MCV 96.1 fL 80.0-100.0 MCH 32.0 pg 27.0-33.0 MCHC 33.3 g/dL 32.0-37.5 PLT 118 L 150-400 MPV 12.2 fL 9.1-13.0 NEUT 68.6 40.0-80.0 LYMPHS 15.4 15.0-45.0 MONO 10.5 2.0-12.0 EOSINO 4.5 0.0-6.0 BASO 0.5 0.0-2.0 RDW 12.9 11.5-14.5 ABS LYMPH 1.0 1.0-4.0 ABS MONO 0.7 0.1-1.0 ABS NEUT 4.4 2.0-7.7 ABS EOS 0.3 0.0-0.5 ABS BASO 0.0 0.0-0.2 IG(META,MYELO,PRO) 0.5 ABS IMMATURE GRAN 0.0 0.0-0.1 Jan 11, 2025 10:34 AM [facility] COVID-19 DIAGNOSTIC PANEL (BIOFIRE) NASOPHAR YNGEAL Specimen Type: NASOPHARYNGEAL Comment: Biofire Toraileen ([id number]) Ordering Provider: YOLANDE VILLARREAL Report Released Date/Time: Jan 11, 2025 10:27 AM Reporting Lab: [facility] [phone] Performing Lab: [facility] [phone] C PNEUMONIAE PCR NOT DETECTED NOT DETECT [...] DETECTED NOT DE TECTED CORONAVIRUS NL63 PCR NOT DETECTED NOT DE TECTED CORONAVIRUS OC43 PCR NOT DETECTED NOT DE TECTED PARAINFLUENZA V1 PCR NOT DETECTED NOT DE TECTED PARAINFLUENZA V2 PCR NOT DETECTED NOT DE TECTED PARAINFLUENZA V3 PCR DETECTED H NOT DETECT ED PARAINFLUENZA V4 PCR NOT DETECTED NOT DE TECTED B PARAPERTUS(AC4571) NOT DETECTED NOT DE TECTED B PERTUSSIS(PTXP) [...] Pain Height Weight Body Mass Index Source Dec 29, 2024 11:02 AM 71 124/69 16 99 3 [facility] Dec 29, 2024 09:49 AM 97.7 77 131/70 16 99 5 [facility] Social History: Smoking Status (Most current) and Tobacco Use (All prior to encounter date) This section includes the most current, and the historical, smoking and tobacco- related health factors from the [place] facility where the Encounter took place. Current Smoking Status This section includes the most current smoking, or tobacco-related health factor, from the [place] facility where the Encounter took place. Date/Time Current Smoking Status Comment Billie modi Nov 19, 2023 11:00 AM [place]-TOBACCO NEVER USED [facility] Tobacco Use History This section includes a history of the smoking, or tobacco-related health factors, that were collected on or before the date of the Encounter. The data comes from the [place] facility where the Encounter took place. Date/Time Smoking Status/Tobacco Use Comment F acility Oct 09, 2022 11:00 AM [place]-TOBACCO NEVER USED [facility] Sep 14, 2021 11:00 AM VA-TOBACCO NEVER USED [facility] Sep 01, 2020 10:30 AM VA-TOBACCO NEVER USED [facility] February 05, 2019 02:57 PM INPT NO TOBACCO USE IN LAST 30 D AYS [facility] February 05, 2019 09:33 AM VA-TOBACCO NEVER USED [facility] Dec 19, 2017 04:35 PM LIFETIME NON-TOBACCO USER [facility] Jul 30, 2017 01:03 PM INPT NO TOBACCO USE IN LAST 30 D AYS [facility] Dec 13, 2016 09:35 AM LIFETIME NON-TOBACCO USER [facility] Dec 08, 2015 12:12 PM LIFETIME NON-TOBACCO USER [facility] Dec 30, 2014 01:48 PM LIFETIME NON-TOBACCO USER [facility] Dec 31, 2013 01:19 PM LIFETIME NON-TOBACCO USER [facility] Oct 17, 2006 01:30 PM LIFETIME NON-TOBACCO USER [facility] Advance Directives: All historical and current Section Date Range: From patient's date of to the date document was created. This section includes ALL of a patient's completed or amended [place] Advance and Rescinded Directives. The entries below indicate that a directive exists for the patient, but an actual copy is not included with this document. The data comes from all [facility]. Date Advance Directives Provider Source Aug 04, 2017 CLINICAL WARNING WIL [place] [facility] Jul 31, 2017 ADVANCE DIRECTIVE DISCUSSION ARNOLDO LUNDBERG [facility] Nov 09, 2003 ADVANCE DIRECTIVE [facility]ARDA ST[facility] Radiology Reports: +/- 30 days of [...] the Encounter. The data comes from all [place] treatment facilities. Date/Time Radiology Report Provider Source Jan 11, 2025 10:49 AM CHEST 1 VIEW: GRIS VELASCO [id number] -[id number] M Exm Date: JAN 11, 2025@10:49 Req Phys: YAAKOV MANDUJANO Loc: [facility] EMERGENCY DEPT WALK-IN (Re Img Loc: MAIN X-RAY Service: [place] [address] (Case [id number] COMPLETE) CHEST 1 VIEW (RAD Detailed) CPT:11657 Proc Modifiers : PORTABLE EXAM Reason for Study: cough Clinical History: cough My pager number on record is: [phone]. I confirm that the pager number/cell phone number above is correct for reporting critical results. Trainees only: Enter your staff provider's info here: LAST CREATININE 1.8 H (11/16/24) Report Status: Verified Date Reported: JAN 11, 2025 Date Verified: JAN 11, 2025 Plant Maintenance Worker E-Sig:/ES/LUZ RICH MD Report: Exam: AP Portable Upright Chest radiograph Reason for Study: cough Comparison: 02/05/2019 Impression: Low lung volumes. No active airspace disease. No large pleural effusion. No plain film evidence for pneumothorax. The pulmonary vasculature is distinct. Right apical calcification/scarring. The cardiac silhouette is not enlarged. Report Sign Date/Time: 01/11/2025 11:32 AM Primary Interpreting Staff: LUZ RICH MD, STAFF NUCLEAR RADIOLOGIST (Plant Maintenance Worker) /LUZ DIOP [facility] Encounter Notes: All associated encounter notes This section contains the clinical notes associated to the Encounter. Date/Time Encounter Note(s) Provider Source Dec 29, 2024 11:05 AM PAIN PROCEDURE NOT E: LOCAL TITLE: PAIN INTERVENTIONAL PROCEDURE NOTE STANDARD TITLE: PAIN PROCEDURE NOTE DATE OF NOTE: DEC 29, 2024@11:05 ENTRY DATE: DEC 29, 2024@11:05:55 AUTHOR: LISET STILL COSIGNER: URGENCY: STATUS: COMPLETED PM&R PAIN INTERVENTIONAL PROCEDURE NOTE Side: Bilateral Level: L3,4,5 Procedure: Medial Branch Radiofrequency Ablation Procedural diagnosis: Lumbar spondylosis Needle Type: RF Cannula - 20g 100mm with 10mm active tip Injected Solution: Lidocaine 2% MPF 1 mL (at each nerve) Complications: None Outcome: Good The heart rate and pulse oximetry were continuously monitored throughout the procedure. Time Out: A procedural pause verifying correct patient, medical record number, allergies, and surgical site was performed immediately prior to beginning the procedure. The skin and subcutaneous tissue overlying the target site of injection was anesthetized using 3mL of 1% lidocaine MPF with a 25-gauge, 1.5in needle. The above noted needle type was advanced to each target under fluoroscopic guidance parallel to the beam of the fluoroscope utilizing a bullseye approach. An AP image of the lumbar spine was used to identify the lumbar vertebral bodies and the sacral ala. The target locations at the above noted side and level corresponding to the above noted transverse processes were identified. The needle was then advanced to the dorsal, superior, and medial aspect of the transverse processes adjacent the superior articular process at the levels and on the side specified above. An oblique view confirmed correct needle placement at the junction of the transverse process and base of the superior articular process. A lateral image was obtained to confirm needle depth. At each site the needles rested on periosteum. L5 Medial Branch Nerve at the Sacral Ala. Needle positioning of the L5 dorsal ramus on the side specified above was performed using a slightly oblique approach under fluoroscopic guidance, placing the needle within the groove between the sacral ala and the superior articular process of S1. A 10-20? oblique view confirmed proper needle placement. A lateral image was obtained to confirm needle depth. The needle rested on periosteum. Stimulation was performed at each level once all the cannulae were in position. Good stimulation to the lumbar and buttock region was elicited, indicating correct alignment with the posterior primary ramus. Absence of lower extremity motor fasciculation was noted at 3 volts at 2 Hz stimulation during testing. Following this confirmatory stimulation, negative aspiration for heme or CSF was noted at each level. The above noted anesthetic solution was injected at each nerve. After a 30 second delay, lesions were performed at a temperature of 80C for a total of 90 seconds. After each lesion, the cannula was rotate 180 degrees and the radiofrequency lesioning was repeated to provide a large lesion taking into account variability in medial branch location/size. After the needle tips had cooled to less than 45?C they were sequentially removed. At the end of the procedure it was noted that the patient could purposefully move all four extremities. Sterile bandages were placed over the puncture sites. The same procedural technique outlined above WAS NOT repeated on the OPPOSITE side. The patient tolerated the procedure well. The patient was carefully escorted to the recovery room in stable condition. After meeting discharge criteria, the patient was discharged home. Discussion: Recovery from the lumbar facet joint denervation is fairly rapid and most patients will show signs of good relief within 7 to 10 days following the procedure. If this contralateral medial branches require RFA we will schedule this in approximately 1 month. Otherwise, the patient follow up in Pain clinic in 10-12 weeks for evaluation of this radiofrequency ablation procedure in the pain clinic. The patient was advised to relax and avoid any heavy lifting or excessive bending for the rest of the day. The patient was advised that they may return to their usual activities tomorrow if otherwise feeling well. The patient was advised not to bathe or soak in water for 72 hours but that showering would be acceptable. [...] be reevaluated if necessary. Recommendations: 1. Patient may follow up with the PC team for medical needs. Patient may also contact the [facility] [employer] team member call line to schedule a repeat procedure in 6+ months should today's procedure provide prolonged benefit/improvement in function 2. The patient has agreed not to travel out of the area for the next 4 days following the procedure so that they can be reevaluated if necessary. 3. No medications were prescribed at today's visit. 4. Additional recommendations: None /dino/ LISET STILL MD STAFF PHYSICIAN Signed: 12/29/2024 11:08 LISET STILL [facility] Dec 29, 2024 10:27 AM PAIN CONSULT: LOCAL TITLE: IMAGING REQUEST CONSULT STANDARD TITLE: PAIN CONSULT DATE OF NOTE: DEC 29, 2024@10:27 ENTRY DATE: DEC 29, 2024@10:27:08 AUTHOR: MAYA HERNANDEZ EXP COSIGNER: URGENCY: STATUS: COMPLETED Images were taken to facilitate procedure carried out by medical provider. /dino/ Marlee RUELAS(R) CLOTH SHRINKER Signed: 12/29/2024 10:27 MAYA HERNANDEZ [facility] Dec 29, 2024 09:49 AM PHYSICAL MEDICINE REHAB NURSING NOTE: LOCAL TITLE: REHAB MEDICINE CLINIC NURSING NOTE STANDARD TITLE: PHYSICAL MEDICINE REHAB NURSING NOTE DATE OF NOTE: DEC 29, 2024@09:49 ENTRY DATE: DEC 29, 2024@09:49:55 AUTHOR: AYDE ALDANA EXP COSIGNER: URGENCY: STATUS: COMPLETED PM&R Interventional Pain Procedure Pre-procedure Patient escorted to clinic via Ambulatory Patient is scheduled for: Bilateral lumbar L3,4,5 RFA Patient was identified by using full name and social security number and/or date of : Yes Procedure(s) to be performed was(were) discussed with patient and verified to be correct: Yes Patient/Family/Caregiver indicated readiness to learn Yes Barriers to learning: vision, wears glasses, hard of hearing, hearing aids Patient and/or family provided with appropriate education and patient and/or family acknowledged understanding: Yes 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: Suhas Medications reviewed: Yes Active Outpatient Medications (including Supplies): Outpatient Medications Status 1) ACCU-CHEK GUIDE (GLUCOSE) TEST STRIP USE 1 STRIP FOUR ACTIVE TIMES A DAY TO CHECK BLOOD SUGAR--USE WITHIN 3 MINUTES OF REMOVING FROM CONTAINER Indication: FOR BLOOD SUGAR TESTING 2) AMIODARONE HCL (PACERONE) 200MG TAB TAKE ONE TABLET BY MOUTH ACTIVE EVERY DAY INDEFINITELY FOR AFIB 3) AMLODIPINE BESYLATE 5MG TAB TAKE ONE TABLET BY MOUTH EVERY ACTIVE DAY - NEW STRENGTH NOVEMBER 2024 Indication: FOR BLOOD PRESSURE 4) APIXABAN 2.5MG TAB TAKE ONE TABLET BY MOUTH EVERY 12 HOURS ACTIVE TO PREVENT BLOOD CLOTS/STROKES 5) ATORVASTATIN CALCIUM 40MG TAB TAKE ONE TABLET BY MOUTH AT ACTIVE BEDTIME Indication: FOR CHOLESTEROL 6) CAMPHOR 0.5/MENTHOL 0.5% LOTION APPLY THIN LAYER TOPICALLY ACTIVE FOUR TIMES A DAY NEEDED Indication: FOR ITCHING 7) GABAPENTIN 400MG CAP TAKE ONE CAPSULE BY MOUTH TWICE A DAY ACTIVE FOR NEUROPATHIC PAIN 8) INSULIN,GLARGINE-YFGN 100UNIT/ML PEN 3ML INJECT 22 UNITS HOLD UNDER THE SKIN EVERY DAY Indication: FOR DIABETES 9) LISINOPRIL 20MG TAB TAKE ONE TABLET BY MOUTH EVERY DAY ACTIVE Indication: FOR HIGH BLOOD PRESSURE. 10) TAMSULOSIN HCL 0.4MG CAP TAKE ONE CAPSULE BY MOUTH EVERY DAY ACTIVE Non-VA Medications Status 1) Non-VA ACETAMINOPHEN 325MG [...] CAP/TAB 1 TAB MOUTH EVERY DAY ACTIVE 19 Total Medications Above medication list reviewed by patient and no additional medications noted; Medications held per protocol Allergies: Gilman has allergy concerns related to pain procedure: No Temperature: 97.7 F [36.5 C] (12/29/2024 09:49) Pulse: 77 (12/29/2024 09:49) Pulse Oximetry: 99% (12/29/2024 09:49) Respirations: 16 (12/29/2024 09:49) Blood Pressure: 131/70 (12/29/2024 09:49) Pain: 5 (12/29/2024 09:49) PT____ INR - NONE FOUND No data available No data available takes blood thinning medications: Yes Patient held blood thinning medication as directed. ASA/ASA containing products have been held per protocol: Not applicable Fish Oil or Vitamin E in the last 6 days: Not applicable NSAIDS in the last 7 days: Not applicable Phosphodiesterase Inhibitors (e.g. Sildenafil, Vardenafil, Tadalafil, Cilostazol) in the last 48 hours: Not applicable Diabetic: Not applicable HEMOGLOBIN A1C 6.1 H (11/16/24) Antibiotics in the last week: Denies Sick or had any fever/chills in the last week: Denies Fractures in the past 12 weeks: Denies Surgical procedures (including dental) within the last 3 months: Denies Upcoming planned surgeries: Denies Rash or any open wounds: Yes Left shoulder rash - uses topicals as prescribed by PCP. Patient has had a change in bowel/bladder function/new saddle anesthesia? Denies Patient has had a change in strength/new weakness? Denies Patient has had a change in balance/increased falls? Denies Patient has had recent changes in their health? Denies Steroid injections within the last 3 months: Not applicable Recent or scheduled vaccines within 2 weeks of this procedure: Not applicable Plans to travel outside of the country or to a place in the [place] where there is not access to medical care within 4 days following the procedure: Denies Patient is : Not applicable Patient ate solid food, broth, Jell-O or candy in the last 4 hours: Denies Patient had clear liquids in the last 2 hours: Denies Patient has pacemaker, defibrillator, nerve stimulator or any implantable devices: Denies Patient has a history of dizziness/balance problems: Yes Uses rollator Patient has a history of nausea, lightheadedness, excessive sweating, feeling warm, blood pressure/heart rate drop during a procedure or blood draw: Denies If patient answered YES to any of the above questions: MD/DO WAS verbally informed of the patient's above answers PRIOR to having patient consent to procedure. Provider notified of LST orders: Not applicable Patient was offered a unsigned copy of the informed consent to preview prior to procedure. Procedure explained by: Chandni Written informed consent obtained by Chandni, using IMed consent. Informed Consent Progress Note containing risks, benefits and alternatives documented. Correct site marked by attending physician. Peripheral IV Placed: 22 gauge Site: Right AC Site clean, dry and intact. Flushed with Normal Saline, positive blood return. Procedure: Site Marking: Site marked, then verified by attending physician. ---Time out checklist---- Confirm correct patient identity: Yes Confirm Procedure To Be Performed: Yes Confirm Site of the Procedure, Including Laterality: Yes Confirm Valid i-MED Consent: Yes Confirm Patient Position: Yes Confirm Procedure Site has been Marked Appropriately and that the Site of the Chris is Visible After Prep and Draping: Yes Pertinent Medical Images Have Been Confirmed, if applicable: Yes Confirm allergies: Yes Fire risk assessment completed: Yes Procedure started: 1009 Procedure ended: 1040 Staff Physician: Chandni Medical Fellow: CHERY Street Photographer: Mirtha RN: Suzy Staple Processing Machine Operator: meli Hernandez student Nursing observations: Patient assisted to position Prone to facilitate procedure. Patient is prepped and draped in sterile fashion, per Chandni. Patient is continually assessed for comfort and [...] via Stretcher to post procedure area. Pulse: 71 Pulse Oximetry: 99 Respirations: 16 Blood Pressure: 124/69 Pain: 3/10 No Procedure-related weakness, balance or gait alteration noted. Observed by RN for 12 minutes. Peripheral IV discontinued. Site: clean, dry and intact. The patient was instructed to follow up [...] Coordinator for questions and concerns was provided. advised to resume anticoagulation medications as directed by anticoagulation consult. Patient verbalized understanding. Wristband Removal: Patient wristband was removed and destroyed by being placed in the shred bin. Patient discharged via Ambulatory at 1053. /dnio/ AYDE ALDANA RN REGISTERED NURSE Signed: 12/29/2024 11:06 AYDE ALDANA [facility]
--- OUTSIDE RECORDS SUMMARY | 2025-01-11 05:02 | XMS_ITS | Encounter Summary ---
Author Name [facility] [place] [facility] [place] [place] [facility] [place] Address [address] [place] [id number] Care Team Providers Care Vice President Research Name Role Phone EDUIN SLATER Primary Care [...] PART B Feb 14, 2002 PART B [id number] [phone] KRISTAMAGY ERT PATIENT MEDICARE (WNR) MEDICARE (M) PART B Feb 14, 2002 PART B [id number] [phone] KRISTAMAGY ERT PATIENT MEDICARE (WNR) MEDICARE (M) PART A Feb 15, 1992 PART A [id number] KRISTAMAGY ERT PATIENT MEDICARE (WNR) MEDICARE (M) PART A Feb 15, 1992 PART A [id number] [phone] KRISTA,MAGY ERT PATIENT Selected Encounter This section includes the information on record at [place] for the Encounter. Date/Time Encounter Type Encounter Description Reason Provider Source Jan 11, 2025 10:02 AM EMERGENCY DEPT VISIT MOD [facility] EMERGENCY DEPT ICD-10-CM J06.9 Acute upper respiratory infection, unspecified YOLANDE MENDES IH[facility]uh[facility] Encounter Template Text not used by [place] Assessments - Encounter Diagnoses This section includes the primary and secondary diagnoses documented for the Encounter. Date/Time Primary/Secondary Diagnosis Diagnosis Name Provider Source Jan 11, 2025 12:12 PM PRIMARY Acute upper respiratory infection, unspecified YOLANDE MENDES [facility] Plan of Treatment: Future Appointments (+ 6 months) and Future Tests (+/- 45 days) The Plan of Treatment section includes future care activities for the patient from all [place] [facility] This section includes future appointments and future orders which are active, pending or scheduled. Future Appointments This section includes appointments that were scheduled to occur 6 months from the date of the Encounter, up to a maximum of 20 appointments. The data comes from all [place] treatment facilities. Appointment Date/Time Appointment Type Appointme nt Facility Name February 02, 2025 11:00 AM AMBULATORY - SURGERY [facility] 2025 01:00 PM AMBULATORY - REHAB MEDICIN [facility] Mar 17, 2025 07:40 [facility] May 24, 2025 12:45 PM AMBULATORY - SURGERY [facility] May 25, 2025 02:20 PM AMBULATORY - MEDICINE [facility] Lab Results: +/- 30 days of the encounter This section includes the Chemistry and Hematology Lab Results on record with [place] for the patient. Radiology Reports and Pathology Reports are provided separately, in subsequent sections. Lab Results This section contains the Chemistry/Hematology Results that were resulted 30 days before or 30 daysafter the date of the Encounter. Date/Time Source Result Type Result - Unit Interpretation Reference Range Specimen Type Comment Jan 11, 2025 11:10 AM [facility] EXTRA MINT TUBE PLASMA Specimen Type: PLASMA No comment entered. Ordering Provider: MD AIMEE Report Released Date/Time: Jan 11, 2025 11:10 AM Reporting Lab: [facility] [id number] Performing Lab: [facility] [id number] EXTRA MINT TUBE RECEIVED Jan 11, 2025 11:10 AM [facility] EXTRA GOLD GEL TUBE SERUM Specimen Type: SERUM No comment entered. Ordering Provider: MD AIMEE Report Released Date/Time: Jan 11, 2025 11:10 AM Reporting Lab: [facility] [id number] Performing Lab: [facility] [id number] EXTRA GOLD GEL TUBE RECEIVED Jan 11, 2025 11:10 AM [facility] EXTRA BLUE TUBE PLASMA Specimen Typ e: PLASMA No comment entered. Ordering Provider: MD AIMEE Report Released Date/Time: Jan 11, 2025 11:10 AM Reporting Lab: [facility] [id number] Performing Lab: [facility] [id number] EXTRA BLUE TUBE RECEIVED Jan 11, 2025 11:10 AM [facility] COMPREHENSIVE METABOLIC PANEL+MG PLASMA Specimen Type: PLASMA No comment entered. Ordering Provider: YAAKOV MANDUJANO Report Released Date/Time: Jan 11, 2025 10:47 AM Reporting Lab: [facility] [id number] Performing Lab: [facility] [id number] CREATININE 1.6 mg/dL H 0.7-1.2 UREA NITROGEN [...] L >60 Jan 11, 2025 11:10 AM [facility] CBC & DIFF BLOOD Specimen Type : BLOOD Comment: Automated Differential Performed Ordering Provider: YAAKOV MANDUJANO Report Released Date/Time: Jan 11, 2025 10:47 AM Reporting Lab: [facility] [id number] Performing Lab: [facility] [id number] WBC 6.4 4.0-11.0 RBC 3.84 L 4.60-6.20 [...] 0.0 0.0-0.1 Jan 11, 2025 10:34 AM [facility] COVID-19 DIAGNOSTIC PANEL (BIOFIRE) NASOPHAR YNGEAL Specimen Type: NASOPHARYNGEAL Comment: Biofire Toraileen (180) Ordering Provider: YOLANDE MENDES Report Released Date/Time: Jan 11, 2025 10:27 AM Reporting Lab: [facility] [phone] Performing Lab: [facility] [phone] C PNEUMONIAE PCR NOT DETECTED NOT DETECT [...] PCR NOT DETECTED NOT DE TECTED B PARAPERTUS(SO1659) NOT DETECTED NOT DE TECTED B PERTUSSIS(PTXP) [...] Pain Height Weight Body Mass Index Source Jan 11, 2025 12:15 PM 70 122/58 17 97 [facility] Jan 11, 2025 10:16 AM 4 [facility] Jan 11, 2025 10:11 AM 98.7 88 107/63 16 96 4 [facility] Jan 11, 2025 10:08 AM 98.7 86 107/63 16 96 4 [facility] Social History: Smoking Status (Most current) and Tobacco Use (All prior to encounter date) This section includes the most current, and the historical, smoking and tobacco- related health factors from the [place] facility where the Encounter took place. Current Smoking Status This section includes the most current smoking, or tobacco-related health factor, from the [place] facility where the Encounter took place. Date/Time Current Smoking Status Comment Billie itnathaniel Nov 19, 2023 11:00 AM [place]-TOBACCO NEVER USED [facility] Tobacco Use History This section includes a history of the smoking, or tobacco-related health factors, that were collected on or before the date of the Encounter. The data comes from the [place] facility where the Encounter took place. Date/Time [...] ALL of a patient's completed or amended [place] Advance and Rescinded Directives. The entries below indicate that a directive exists for the patient, but an actual copy is not included with this document. The data comes from all [facility]. Date Advance Directives Provider Source Aug 04, 2017 CLINICAL WARNING WIL DAVIS [facility] Jul 31, 2017 ADVANCE DIRECTIVE DISCUSSION ARNOLDO LUNDBERG [facility] Nov 09, 2003 ADVANCE DIRECTIVE SHARDA STANLEY [facility] Radiology Reports: +/- 30 days [...] the Encounter. The data comes from all [place] treatment facilities. Date/Time Radiology Report Provider Source Jan 11, 2025 10:49 AM CHEST 1 VIEW: GRIS WOLFF [id number] -[id number] M Exm Date: JAN 11, 2025@10:49 Req Phys: YAAKOV MANDUJANO Loc: [facility] EMERGENCY DEPT WALK-IN (Re Img Loc: MAIN X-RAY Service: [place] [address] (Case [id number] COMPLETE) CHEST 1 VIEW (RAD Detailed) CPT:33179 Proc Modifiers : PORTABLE EXAM Reason for Study: cough Clinical History: cough My pager number on record is: [phone]. I confirm that the pager number/cell phone number above is correct for reporting critical results. Trainees only: Enter your staff provider's info here: LAST CREATININE 1.8 H (11/16/24) Report Status: Verified Date Reported: JAN 11, 2025 Date Verified: JAN 11, 2025 Excavator Operator E-Sig:/ES/LUZ RICH MD Report: Exam: AP Portable Upright Chest radiograph Reason for Study: cough Comparison: 02/05/2019 Impression: Low lung volumes. No active airspace disease. No large pleural effusion. No plain film evidence for pneumothorax. The pulmonary vasculature is distinct. Right apical calcification/scarring. The cardiac silhouette is not enlarged. Report Sign Date/Time: 01/11/2025 11:32 AM Primary Interpreting Staff: LUZ RICH MD, STAFF NUCLEAR RADIOLOGIST (Excavator Operator) /LUZ DIOP [facility] Encounter Notes: All associated encounter notes This section contains the clinical notes associated to the Encounter. Date/Time Encounter Note(s) Provider Source Jan 11, 2025 02:09 PM ADDENDUM: LOCAL TITLE: Addendum STANDARD TITLE: ADDENDUM DATE OF NOTE: JAN 11, 2025@14:09:03 ENTRY DATE: JAN 11, 2025@14:09:04 AUTHOR: YOLANDE MENDES EXP COSIGNER: URGENCY: STATUS: COMPLETED Patient seen and examined, please refer to resident note regarding history physical and care plan. Briefly, 89-year-old man presenting with 4 to 5 days of what sounds like sinus pressure at [place]. Noted to be positive for parainfluenza virus. Was hemodynamically stable in the emergency room. Outpatient prednisone taper, Tesjason Vergara. Stop Sudafed and stop guaifenesin DM /dino/ YOLANDE MENDES M.D. STAFF PHYSICIAN Signed: 01/11/2025 14:10 Receipt Acknowledged By: 01/11/2025 14:26 /es/ BOBBY NEIL Resident, Internal Medicine 01/11/2025 14:28 /es/ EDUIN SLATER MD STAFF PHYSICIAN --- Original Document --- 01/11/25 EMERGENCY DEPT NOTE: Nurse's note reviewed as available. (PPE): used PPE during every encounter with the patient CC: cough HPI: GRIS WOLFF is a 89 yo MALE with PMH afib on apixaban, HTN, DM, CKD, chronic sinusitis, presents w c/o cough for 4 days. Vet has had a cough for the past 4 days. The cough began after his son had a cough, for which he was given antibiotics. The son has begun to feel better, but Mr. Wolff continues to cough. Has tried robitussin DM and last evening took psuedoephedrine for his cough. This morning, when getting up from bed, he began to cough and felt lightheaded, and had increased pain on his R forehead and cheek. Denies falls, but feels off balance during coughing spells. Also has cough-associated muscle tenderness in his lower ribcage bilaterally. Denies fevers, abdominal pain, SOB. ROS: in addition, Comprehensive ROS o/w negative for pertinent acute symptoms except for those noted in HPI PMH: Active problems - Computerized Problem List is the source for the followin. Hypertension (SNOMED CT 33740057) 2. Generalized anxiety disorder 3. Hyperlipidemia 4. 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 Diabetes mellitus (SNOMED CT 60470348) 7. Chronic kidney disease stage 3 (SNOMED CT 507579898) 8. 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 Splenomegaly 10. [...] hazardous substance ([facility] [id number]) - Entered through [facility] EZ Documentation Initiative 20. Lumbar spondylosis Allergies: PENICILLIN (2008) EMPAGLIFLOZIN (Aug 21, 2022) Allergies, SH, medications reviewed in CPRS Active Outpatient Medications (excluding Supplies): Outpatient Medications Status = 1) ACCU-CHEK GUIDE (GLUCOSE) TEST STRIP USE [...] MOUTH EVERY DAY ACTIVE Non-VA Medications Status = 1) Non-VA ACETAMINOPHEN 325MG TAB 650MG MOUTH [...] MOUTH EVERY DAY ACTIVE 19 Total Medications Exam Temp : 98.7 F [37.1 C] (01/11/2025 10:11) P : 88 (01/11/2025 10:11) RR : 16 (01/11/2025 10:11) B/P : 107/63 (01/11/2025 10:11) Wt : 195 lb [88.45 kg] (11/16/2024 13:26) Pain : 4 (01/11/2025 10:16) Pulse Ox: 96% (01/11/2025 10:11) Gen: alert, conversant, NAD Head: NC/AT Eyes: PERRL, EOMI. ENT: MMM. TTP over R maxiallary and R frontal sinuses Neck: Supple CV: RRR, no M/R/G Pulm: spasmodic cough. Lungs CTAB. Good symmetric air exchange. No rhonchi or wheezing GI: S/NT/ND Neuro: A&O appropriate, no gross acute focal deficit MSK: reproducible bilateral chest wall tenderness near RUQ and LUQ Skin: WDWP, no concerning rash or lesions Beh: Appropriate, reasonable insight/judgement Orthostatic BPs lying down: 120/62, HR 72 sittin/56, HR 82 standin/59, HR 75 Relevant diagnostic studies reviewed in CPRS. EXTRA MINT TUBE: RECEIVED EXTRA BLUE TUBE: RECEIVED EXTRA RED TUBE: RECEIVED GLUCOSE: 102 H UREA NITROGEN: 20 CREATININE: 1.6 H SODIUM: 138 POTASSIUM: 4.5 CHLORIDE: 107 CO2: 23 CALCIUM: 8.5 PROTEIN,TOTAL: 6.1 L ALBUMIN: 3.6 BILIRUBIN,TOTAL: 0.7 MAGNESIUM: 1.7 ANION GAP: 8 ALKALINE PHOSPHATASE(37C): 84 SGOT(37C): 52 H SGPT(37C): 59 H CREATININE EGFR (CKD-EPI): 41 L WBC: 6.4 RBC: 3.84 L HGB: 12.3 L HCT: 36.9 L MCV: 96.1 MCH: 32.0 MCHC: 33.3 RDW: 12.9 PLT: 118 L MPV: 12.2 SEGS: 68.6 LYMPHS: 15.4 MONOCYTES: 10.5 EOSINO: 4.5 BASO: 0.5 NEUTROPHIL, ABSOLUTE: 4.4 EOSINO, ABSOLUTE: 0.3 BASO, ABSOLUTE: 0.0 MONOCYTE, ALTERNATE ABS: 0.7 LYMPHS, ALTERNATE ABS: 1.0 I.5 IG,ABSOLUTE: 0.0 C PNEUMONIA PCR: NOT DETECTED M PNEUMONIAE PCR: NOT DETECTED ADENOVIRUS-PCR: NOT DETECTED H METAPNEUMOVIR PCR: NOT DETECTED H RHIN/ENTEROVIR PCR: NOT DETECTED INFLUENZA A PCR: NOT DETECTED INFLUENZA B PCR: NOT DETECTED RSV PCR: NOT DETECTED CORONAVIRUS 229E PCR: NOT DETECTED CORONAVIRUS HKU1 PCR: NOT DETECTED CORONAVIRUS NL63 PCR: NOT DETECTED CORONAVIRUS OC43 PCR: NOT DETECTED PARAINFLUENZA V1 PCR: NOT DETECTED PARAINFLUENZA V2 PCR: NOT DETECTED PARAINFLUENZA V3 PCR: DETECTED H PARAINFLUENZA V4 PCR: NOT DETECTED B PARAPERTUS([id number]): NOT DETECTED B PERTUSSIS(PTXP): NOT DETECTED RESPIRATORY INTERP: Nucleic acid of specified pathogen(s) IDENTIFIED COVID-19 DIAG (BIOF): NOT DETECTED ED Course/MDM/ASSESSMENT/PLAN: GRIS WOLFF is a 89 yo MALE with PMH afib on apixaban, HTN, DM, CKD, chronic sinusitis, presents w c/o cough for 4 days. Coughing induces episodes of lightheadedness. VSS, on RA. WBC 6.4, Cr stable. Positive orthostatics, and positive for parainfluenza virus. Vet has been taking robitussin DM and pseudoephedrine at home for cough which is likely contributing to symptoms of imbalance/lightheadedness. Will treat hypotension with IVF and discharge home with benzonatate and prednisone for cough symptoms. Treatments: - 1L IV NS for orthostatic hypotension - benzonatate daily - prednisone 40mg today, then 20mg daily for 3 days - avoid robitussin DM and pseudoephedrine per [place] criteria Communications: none Edu: was informed of available results, impression, plan of care - verbalized understanding/agreement. Condition: stable Disposition: discharge to home // YAAKOV MANDUJANO Internal Medicine Resident Signed: 01/11/2025 14:03 Receipt Acknowledged By: 01/11/2025 14:08 /dino/ YOLANDE MENDES M.D. STAFF PHYSICIAN YOLANDE MENDES [facility] Jan 11, 2025 12:15 PM NURSING EMERGENCY DEPT NOTE: LOCAL TITLE: EMERGENCY DEPT NURSING NOTE STANDARD TITLE: NURSING EMERGENCY DEPT NOTE DATE OF NOTE: JAN 11, 2025@12:15 ENTRY DATE: JAN 11, 2025@12:15:45 AUTHOR: HAYDEN BUSTOS EXP COSIGNER: URGENCY: STATUS: COMPLETED Emergency Department Discharge Education Personal Protective Equipment (PPE): None The patient was given education on the following: EDUCATION/TEACH BACK: [facility] discharge instructions have been reviewed with Patient AND had an opportunity to ask questions, has verbalized understanding, have received a copy of the [facility] instructions EDUCATIONAL LEVEL OF UNDERSTANDING: Patient, Family was ready and receptive to education. BARRIERS TO LEARNING: No barriers identified Accompanied by: Family Mode of Transportation: Relative/friend EXIT ADDITIONAL EDUCATION GIVE: INT d/c'd intact Wristband Removal:Patient wristband was removed and destroyed by being placed in the shred bin. Discharged to: Home /dino/ HAYDEN BUSTOS RN REGISTERED NURSE Signed: 01/11/2025 12:19 HAYDEN BUSTOS [facility] Jan 11, 2025 12:00 PM EMERGENCY DEPT EDU CATION NOTE: LOCAL TITLE: EMERGENCY DEPT DISCHARGE INSTRUCTIONS STANDARD TITLE: EMERGENCY DEPT EDUCATION NOTE DATE OF NOTE: JAN 11, 2025@12:00:29 ENTRY DATE: JAN 11, 2025@12:00:29 AUTHOR: YOLANDE MENDES EXP COSIGNER: URGENCY: STATUS: COMPLETED DISCHARGE INSTRUCTIONS [...] instructions below. You were treated today by Yolande Mendes MD. Special Information Warm water gargles 4 times a day, wash your hands, cover your cough.Drink at least 1-2 L of fluid every day.Do not drink ice water as it will make your cough worse.Stop taking nrpe-dik-edsjlwg Sudafed and Robitussin it does not really help please take the medications as prescribed to you.You may take up to 2 weeks to recover completely This Information Is About Your Follow Up Care Call your Primary Care Team if you have any problems or concerns. You can reach them by calling . Future Appointments 02/02/2025 at 11:00am [facility]/PROC 06/22/2025 at 1:20pm [facility] This Information Is About Your Illness and Diagnosis UPPER RESPIRATORY INFECTION (Common cold caused by [...] and in close contact with each other -veneer drier feeder weather - it is easier for viruses to attach to veneer drier feeder mucus membranes, such as the lining of [...] nose. -Be careful if you take an pptz-jnt-fugjsqn cold medicine that includes an antihistamine. Antihistamines can make you very drowsy. This can make it dangerous for you to drive or operate heavy machinery. -If you have high blood pressure, heart disease, or prostate problems, talk to your health care provider or pharmacist before taking jhco-deh-luqwqwt cold medicine. Contact your health care provider [...] blood. -have any new or bothersome symptoms. IMPORTANT MEDICATION INFORMATION -Your medication list includes [...] have your Medication List reviewed. Pending Medications BENZONATATE 100MG CAP \ Sig: TAKE ONE CAPSULE BY MOUTH TWICE A DAY\Indication: FOR COUGH PREDNISONE 20MG TAB \ Sig: TAKE TWO TABLETS BY MOUTH EVERY MORNING FOR 4 DAYS, THEN TAKE ONE TABLET EVERY MORNING FOR 3 DAYS\Indication: BRONCHITIS Active Medications ACCU-CHEK GUIDE (GLUCOSE) TEST STRIP USE 1 STRIP FOUR TIMES A DAY FOR BLOOD SUGAR TESTING TO CHECK BLOOD SUGAR--USE WITHIN 3 MINUTES OF REMOVING FROM CONTAINER ACETAMINOPHEN TAB 650MG MOUTH NEEDED (Non-VA Medication) AMIODARONE HCL (PACERONE) 200MG TAB TAKE ONE TABLET BY MOUTH EVERY DAY INDEFINITELY FOR AFIB AMLODIPINE BESYLATE 5MG TAB TAKE ONE TABLET BY MOUTH EVERY DAY FOR BLOOD PRESSURE - NEW STRENGTH NOVEMBER 2024 APIXABAN 2.5MG TAB TAKE ONE TABLET BY MOUTH EVERY 12 HOURS TO PREVENT BLOOD CLOTS/STROKES ATORVASTATIN CALCIUM 40MG TAB TAKE ONE TABLET BY MOUTH AT BEDTIME FOR CHOLESTEROL BETA SITOSTEROL CAP/TAB 3 MOUTH EVERY DAY (Non-VA Medication) CALCIUM CARBONATE TAB 3-4 TABLETS MOUTH EVERY DAY NEEDED (Non-VA Medication) CAMPHOR 0.5/MENTHOL 0.5% LOTION APPLY THIN LAYER TOPICALLY FOUR TIMES A DAY NEEDED FOR ITCHING CHONDROITIN/GLUCOSAMINE CAP/TAB MOUTH EVERY DAY (Non-VA Medication) CINNAMON CAP/TAB EVERY DAY (Non-VA Medication) GABAPENTIN 400MG CAP TAKE ONE CAPSULE BY MOUTH TWICE A DAY FOR NEUROPATHIC PAIN INSULIN,GLARGINE-YFGN 100UNIT/ML PEN 3ML (HOLD) INJECT 22 UNITS UNDER THE SKIN EVERY DAY FOR DIABETES LISINOPRIL 20MG TAB TAKE ONE TABLET BY MOUTH EVERY DAY FOR HIGH BLOOD PRESSURE. LORATADINE TAB,ORAL 10MG MOUTH NEEDED (Non-VA Medication) MULTIVITAMINS TAB 1 TABLET MOUTH EVERY DAY (Non-VA Medication) SODIUM CHLORIDE 0.65% SOLN,SPRAY,NASAL QD EACH NOSTRIL EVERY DAY NEEDED (Non-VA Medication) TAMSULOSIN HCL 0.4MG CAP TAKE ONE CAPSULE BY MOUTH EVERY DAY TURMERIC CAP/TAB 1 TAB MOUTH EVERY DAY (Non-VA Medication) Medications Medications in the last 90 days TESTOSTERONE 1.62% 20.25MG/PUMP TOP GEL APPLY 2 PUMPS TOPICALLY ONCE A DAY FOR LOW TESTOTERONE YOU ARE THE MOST IMPORTANT FACTOR IN [...] YOU ARE EXPERIENCING A MEDICAL EMERGENCY CALL 161 OR GO TO THE NEAREST EMERGENCY ROOM /dino/ YOLANDE MENDES M.D. STAFF PHYSICIAN Signed: 01/11/2025 12:00 YOLANDE MENDES [facility] Jan 11, 2025 11:37 AM NURSING EMERGENCY DEPT NOTE: LOCAL TITLE: EMERGENCY DEPT NURSING NOTE STANDARD TITLE: NURSING EMERGENCY DEPT NOTE DATE OF NOTE: JAN 11, 2025@11:37 ENTRY DATE: JAN 11, 2025@11:51:27 AUTHOR: HAYDEN BUSTOS EXP COSIGNER: URGENCY: STATUS: COMPLETED Medication administration Medication: Normal Saline Dose: 1000ml Route: IV Time: 1137 Rate: bolus Site: [facility] /cristela BUSTOS RN REGISTERED NURSE Signed: 01/11/2025 11:52 [facility] Jan 11, 2025 11:34 AM NURSING EMERGENCY DEPT NOTE: LOCAL TITLE: EMERGENCY DEPT NURSING NOTE STANDARD TITLE: NURSING EMERGENCY DEPT NOTE DATE OF NOTE: JAN 11, 2025@11:34 ENTRY DATE: JAN 11, 2025@11:35:25 AUTHOR: HAYDEN BUSTOS EXP COSIGNER: URGENCY: STATUS: COMPLETED Nursing Focused Assessment: Allergies/ADR: PENICILLIN (2008) EMPAGLIFLOZIN (Aug 21, 2022) Additional allergies not listed: Vital Signs: Vital signs previously recorded this visit: Date Vital Measurement Qualifiers 01/11/2025 10:16 Pain 4 01/11/2025 10:11 Temp F (C) 98.7 (37.1) Pulse 88 Respir 16 BP 107/63 POx (L/Min)(%) 96 Tobacco use: No Alcohol use: Yes What type of alcohol are you using: radha How often are you drinking alcohol: Soc. Any drugs besides what is prescribed or over the counter: No ABUSE/NEGLECT: No evidence of abuse/neglect REVIEW OF SYSTEM-FOCUSED ASSESSMENT Neurological: Alert Additional comments/issues/interventio ns: Dizzy when changing positions sometimes. Respiratory: Cough: Yes Strong Quality of breath: Equal and unlabored chest rise and fall /cristela BUSTOS RN REGISTERED NURSE Signed: 01/11/2025 11:37 HAYDEN BUSTOS [facility] Jan 11, 2025 10:49 AM PHYSICIAN EMERGENC Y DEPT NOTE: LOCAL TITLE: EMERGENCY DEPT NOTE STANDARD TITLE: PHYSICIAN EMERGENCY DEPT NOTE DATE OF NOTE: JAN 11, 2025@10:49 ENTRY DATE: JAN 11, 2025@10:49:54 AUTHOR: YAAKOV MANDUJANO COSIGNER: URGENCY: STATUS: COMPLETED EMERGENCY DEPT NOTE Has ADDENDA Nurse's note reviewed as available. (PPE): used PPE during every encounter with the patient CC: cough HPI: GRIS WOLFF is a 89 yo MALE with PMH afib on apixaban, HTN, DM, CKD, chronic sinusitis, presents w c/o cough for 4 days. Vet has had a cough for the past 4 days. The cough began after his son had a cough, for which he was given antibiotics. The son has begun to feel better, but Mr. Wolff continues to cough. Has tried robitussin DM and last evening took psuedoephedrine for his cough. This morning, when getting up from bed, he began to cough and felt lightheaded, and had increased pain on his R forehead and cheek. Denies falls, but feels off balance during coughing spells. Also has cough-associated muscle tenderness in his lower ribcage bilaterally. Denies fevers, abdominal pain, SOB. ROS: in addition, Comprehensive ROS o/w negative for pertinent acute symptoms except for those noted in HPI PMH: Active problems - Computerized Problem List is the source for the followin. Hypertension (SNOMED CT 34830447) 2. Generalized anxiety disorder 3. Hyperlipidemia 4. Obesity (SNOMED CT 517640624) 5. Benign tumour of pituitary gland (SNOMED CT 24713102) 6. Diabetes mellitus (SNOMED CT 49427302) 7. Chronic kidney disease stage 3 (SNOMED CT 367330822) 8. Psoriasis with arthropathy (SNOMED CT 34282174) - only on topicals 9. Splenomegaly 10. [...] hazardous substance ([facility] [id number]) - Entered through [facility] EZ Documentation Initiative 20. Lumbar spondylosis Allergies: PENICILLIN (2008) EMPAGLIFLOZIN (Aug 21, 2022) Allergies, SH, medications reviewed in CPRS Active Outpatient Medications (excluding Supplies): Outpatient Medications Status = 1) ACCU-CHEK GUIDE (GLUCOSE) TEST STRIP USE [...] MOUTH EVERY DAY ACTIVE Non-VA Medications Status = 1) Non-VA ACETAMINOPHEN 325MG TAB 650MG MOUTH [...] MOUTH EVERY DAY ACTIVE 19 Total Medications Exam Temp : 98.7 F [37.1 C] (01/11/2025 10:11) P : 88 (01/11/2025 10:11) RR : 16 (01/11/2025 10:11) B/P : 107/63 (01/11/2025 10:11) Wt : 195 lb [88.45 kg] (11/16/2024 13:26) Pain : 4 (01/11/2025 10:16) Pulse Ox: 96% (01/11/2025 10:11) Gen: alert, conversant, NAD Head: NC/AT Eyes: PERRL, EOMI. ENT: MMM. TTP over R maxiallary and R frontal sinuses Neck: Supple CV: RRR, no M/R/G Pulm: spasmodic cough. Lungs CTAB. Good symmetric air exchange. No rhonchi or wheezing GI: S/NT/ND Neuro: A&O appropriate, no gross acute focal deficit MSK: reproducible bilateral chest wall tenderness near RUQ and LUQ Skin: WDWP, no concerning rash or lesions Beh: Appropriate, reasonable insight/judgement Orthostatic BPs lying down: 120/62, HR 72 sittin/56, HR 82 standin/59, HR 75 Relevant diagnostic studies reviewed in CPRS. EXTRA MINT TUBE: RECEIVED EXTRA BLUE TUBE: RECEIVED EXTRA RED TUBE: RECEIVED GLUCOSE: 102 H UREA NITROGEN: 20 CREATININE: 1.6 H SODIUM: 138 POTASSIUM: 4.5 CHLORIDE: 107 CO2: 23 CALCIUM: 8.5 PROTEIN,TOTAL: 6.1 L ALBUMIN: 3.6 BILIRUBIN,TOTAL: 0.7 MAGNESIUM: 1.7 ANION GAP: 8 ALKALINE PHOSPHATASE(37C): 84 SGOT(37C): 52 H SGPT(37C): 59 H CREATININE EGFR (CKD-EPI): 41 L WBC: 6.4 RBC: 3.84 L HGB: 12.3 L HCT: 36.9 L MCV: 96.1 MCH: 32.0 MCHC: 33.3 RDW: 12.9 PLT: 118 L MPV: 12.2 SEGS: 68.6 LYMPHS: 15.4 MONOCYTES: 10.5 EOSINO: 4.5 BASO: 0.5 NEUTROPHIL, ABSOLUTE: 4.4 EOSINO, ABSOLUTE: 0.3 BASO, ABSOLUTE: 0.0 MONOCYTE, ALTERNATE ABS: 0.7 LYMPHS, ALTERNATE ABS: 1.0 I.5 IG,ABSOLUTE: 0.0 C PNEUMONIA PCR: NOT DETECTED M PNEUMONIAE PCR: NOT DETECTED ADENOVIRUS-PCR: NOT DETECTED H METAPNEUMOVIR PCR: NOT DETECTED H RHIN/ENTEROVIR PCR: NOT DETECTED INFLUENZA A PCR: NOT DETECTED INFLUENZA B PCR: NOT DETECTED RSV PCR: NOT DETECTED CORONAVIRUS 229E PCR: NOT DETECTED CORONAVIRUS HKU1 PCR: NOT DETECTED CORONAVIRUS NL63 PCR: NOT DETECTED CORONAVIRUS OC43 PCR: NOT DETECTED PARAINFLUENZA V1 PCR: NOT DETECTED PARAINFLUENZA V2 PCR: NOT DETECTED PARAINFLUENZA V3 PCR: DETECTED H PARAINFLUENZA V4 PCR: NOT DETECTED B PARAPERTUS([id number]): NOT DETECTED B PERTUSSIS(PTXP): NOT DETECTED RESPIRATORY INTERP: Nucleic acid of specified pathogen(s) IDENTIFIED COVID-19 DIAG (BIOF): NOT DETECTED ED Course/MDM/ASSESSMENT/PLAN: GRIS WOLFF is a 89 yo MALE with PMH afib on apixaban, HTN, DM, CKD, chronic sinusitis, presents w c/o cough for 4 days. Coughing induces episodes of lightheadedness. VSS, on RA. WBC 6.4, Cr stable. Positive orthostatics, and positive for parainfluenza virus. Vet has been taking robitussin DM and pseudoephedrine at home for cough which is likely contributing to symptoms of imbalance/lightheadedness. Will treat hypotension with IVF and discharge home with benzonatate and prednisone for cough symptoms. Treatments: - 1L IV NS for orthostatic hypotension - benzonatate daily - prednisone 40mg today, then 20mg daily for 3 days - avoid robitussin DM and pseudoephedrine per [place] criteria Communications: none Edu: was informed of available results, impression, plan of care - verbalized understanding/agreement. Condition: stable Disposition: discharge to home /dino/ YAAKOV MANDUJANO Internal Medicine Resident Signed: 01/11/2025 14:03 Receipt Acknowledged By: 01/11/2025 14:08 /dino/ YOLANDE MENDES M.D. STAFF PHYSICIAN 01/11/2025 ADDENDUM STATUS: COMPLETED Patient seen and examined, please refer to resident note regarding history physical and care plan. Briefly, 89-year-old man presenting with 4 to 5 days of what sounds like sinus pressure at [facility]. Noted to be positive for parainfluenza virus. Was hemodynamically stable in the emergency room. Outpatient prednisone taper, Tesjason Vergara. Stop Sudafed and stop guaifenesin DM /dino/ YOLANDE MEDNES M.D. STAFF PHYSICIAN Signed: 01/11/2025 14:10 Receipt Acknowledged By: * AWAITING SIGNATURE * BOBBY NEIL * AWAITING SIGNATURE * EDUIN SLATER [facility] Jan 11, 2025 10:12 AM EMERGENCY DEPT TRI AGE NOTE: LOCAL TITLE: EMERGENCY DEPARTMENT TRIAGE STANDARD TITLE: EMERGENCY DEPT TRIAGE NOTE DATE OF NOTE: JAN 11, 2025@10:12 ENTRY DATE: JAN 11, 2025@10:12:32 AUTHOR: MARSHA MALDONADO COSIGNER: URGENCY: STATUS: COMPLETED Emergency Department/Urgent Care Center Triage Patient age:89 Sex in chart: MALE Mode of Arrival: Private vehicle Other Mode: Son Mode of Mobility: * Walk Chief Complaint: Past 5 days prod cough/sinus headache (forehead and facial sinuses) 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 Pleasant,ambulatory. Hard to inhale deeply without coughing or exhaling. Level of Consciousness (AVPU): Alert = Appears aware of and responsive to the environment on their own. Follows commands, opens eyes spontaneously, and tracks objects. Vital Signs: Vital signs previously recorded this visit: Date Vital Measurement Qualifiers 01/11/2025 10:11 Temp F (C) 98.7 (37.1) Pulse 88 Respir 16 BP 107/63 Pain 4 POx (L/Min)(%) 96 Pain: DVPRS Scale Location: headache Defense and Veterans Pain Rating Scale (DVPRS): 4 Distracts me, can do usual activities Pain Score: 4 Patient's acceptable pain goal: Suicide Screen: [place] Suicide Severity Rating Scale (C-SSRS) screener 1. [...] required due to responses to other questions. Emergency Severity Index (JAOQUIM) level: Level 3 Previously documented allergies: PENICILLIN (2008) EMPAGLIFLOZIN (Aug 21, 2022) Current Problems: Hypertension ([facility] [id number]) Generalized anxiety disorder ([facility] 46318061) Hyperlipidemia ([facility] 42139969) Obesity ([facility] 538312363) Benign tumour of pituitary gland (SCT 92Diabetes mellitus ([facility] 50070464) Chronic kidney disease stage 3 ([facility] 4331Psoriasis with arthropathy (SCT 78125217) Splenomegaly (SCT 18089393) Bilateral hearing loss (SCT 99652964) Chronic sinusitis (SCT 68079869) Atrial fibrillation and flutter (SCT 323797444) 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
--- OUTSIDE RECORDS SUMMARY | 2025-02-02 06:00 | XMS_ITS | Encounter Summary ---
Author Name [facility] Address [address] [place] [address] Care Team Providers Care Wood Cutter Name Role Phone EDUIN SLATER Primary Care [...] PART B Feb 14, 2002 PART B [id number] [phone] KIRSTAMAGY ERT PATIENT MEDICARE (WNR) MEDICARE (M) PART B Feb 14, 2002 PART B [id number] [phone] KRISTAMAGY ERT PATIENT MEDICARE (WNR) MEDICARE (M) PART A Feb 15, 1992 PART A [id number] [phone] KRISTAMAGY ERT PATIENT MEDICARE (WNR) MEDICARE (M) PART A Feb 15, 1992 PART A [id number] [phone] KRISTA,MAGY ERT PATIENT Selected Encounter This section includes the information on record at [place] for the Encounter. Date/Time Encounter Type Encounter Description Reason Provider Source February 02, 2025 11:00 AM OFFICE O/P EST MOD 30 MIN OPHTHALMOLOGY ICD-10-CM Z96.1 Presence of intraocular lens CHARLES WHITLEY IHZuhair Encounter Template Text not used by PA Assessments - Encounter Diagnoses This section includes the primary and secondary diagnoses documented for the Encounter. Date/Time Primary/Secondary Diagnosis Diagnosis Name Provider Source February 02, 2025 11:46 AM PRIMARY Presence of intraocular lens TAYLER JAVED [facility] February 02, 2025 11:46 AM SECONDARY Other secondary cataract, left eye TAYLER JAVED [facility] Plan of Treatment: Future Appointments (+ 6 months) and Future Tests (+/- 45 days) The Plan of Treatment section includes future care activities for the patient from all [place] treatmentfacilities. This section includes future appointments and future orders which are active, pending or scheduled. Future Appointments This section includes appointments that were scheduled to occur 6 months from the date of the Encounter, up to a maximum of 20 appointments. The data comes from all [place] treatment facilities. Appointment Date/Time Appointment Type Appointme nt Facility Name 2025 01:00 PM AMBULATORY - REHAB MEDICIN [facility] Mar 17, 2025 07:40 AM AMBULATORY - REHAB MEDICIN [facility] May 24, 2025 12:45 PM AMBULATORY - SURGERY [facility] May 25, 2025 02:20 PM AMBULATORY - MEDICINE [facility] Lab Results: +/- 30 days of the encounter This section includes the Chemistry and Hematology Lab Results on record with PA for the patient. Radiology Reports and Pathology Reports are provided separately, in subsequent sections. Lab Results This section contains the Chemistry/Hematology Results that were resulted 30 days before or 30 daysafter the date of the Encounter. Date/Time Source Result Type Result - Unit Interpretation Reference Range Specimen Type Comment Jan 11, 2025 11:10 AM [facility] EXTRA MINT TUBE PLASMA Specimen Type: PLASMA No comment entered. Ordering Provider: MD AIMEE Report Released Date/Time: Jan 11, 2025 11:10 AM Reporting Lab: [facility] [id number] Performing Lab: [facility] [address] EXTRA MINT TUBE RECEIVED Jan 11, 2025 11:10 AM [facility] EXTRA GOLD GEL TUBE SERUM Specimen Type: SERUM No comment entered. Ordering Provider: MD AIMEE Report Released Date/Time: Jan 11, 2025 11:10 AM Reporting Lab: [facility] [id number] Performing Lab: [facility] [address] EXTRA GOLD GEL TUBE RECEIVED Jan 11, 2025 11:10 AM [facility] EXTRA BLUE TUBE PLASMA Specimen Typ e: PLASMA No comment entered. Ordering Provider: MD AIMEE Report Released Date/Time: Jan 11, 2025 11:10 AM Reporting Lab: [facility] [phone] Performing Lab: [facility] [address] EXTRA BLUE TUBE RECEIVED Jan 11, 2025 11:10 AM [facility] COMPREHENSIVE METABOLIC PANEL+MG PLASMA Specimen Type: PLASMA No comment entered. Ordering Provider: YAAKOV MANDUJANO Report Released Date/Time: Jan 11, 2025 10:47 AM Reporting Lab: [facility] [id number] Performing Lab: [facility] [phone] CREATININE 1.6 mg/dL H 0.7-1.2 UREA NITROGEN [...] L >60 Jan 11, 2025 11:10 AM [facility] CBC & DIFF BLOOD Specimen Type : BLOOD Comment: Automated Differential Performed Ordering Provider: YAAKOV MANDUJANO Report Released Date/Time: Jan 11, 2025 10:47 AM Reporting Lab: [facility] [address] Performing Lab: [facility] [address] WBC 6.4 4.0-11.0 RBC 3.84 L 4.60-6.20 [...] 0.0 0.0-0.1 Jan 11, 2025 10:34 AM [facility] COVID-19 DIAGNOSTIC PANEL (BIOFIRE) NASOPHAR YNGEAL Specimen Type: NASOPHARYNGEAL Comment: Biofire Arleen (335) Ordering Provider: YOLANDE VILLARREAL Report Released Date/Time: Jan 11, 2025 10:27 AM Reporting Lab: [facility] [address] Performing Lab: [facility] [address] C PNEUMONIAE PCR NOT DETECTED NOT DETECT [...] PCR NOT DETECTED NOT DE TECTED B PARAPERTUS(GU5134) NOT DETECTED NOT DE TECTED B PERTUSSIS(PTXP) NOT DETECTED NOT DETEC [facility] INTERP Nucleic a vipul of specified pathogen(s) IDENTIFIED COVID-19 DIAG (BIOF) NOT DETECTED NOT DE TECTED Social History: Smoking Status (Most current) and Tobacco Use (All prior to encounter date) This section includes the most current, and the historical, smoking and tobacco- related health factors from the [place] facility where the Encounter took place. Current Smoking Status This section includes the most current smoking, or tobacco-related health factor, from the PA facility where the Encounter took place. Date/Time Current Smoking Status Comment Billie modi Nov 19, 2023 11:00 AM VA-TOBACCO NEVER USED [facility] Tobacco Use History This section includes a history of the smoking, or tobacco-related health factors, that were collected on or before the date of the Encounter. The data comes from the [place] facility where the Encounter took place. Date/Time Smoking Status/Tobacco Use Comment F aviva Oct 09, 2022 11:00 AM VA-TOBACCO NEVER USED [facility] Sep 14, 2021 11:00 AM VA-TOBACCO NEVER USED [facility] Sep 01, 2020 10:30 AM VA-TOBACCO NEVER USED [facility] February 05, 2019 02:57 PM INPT NO TOBACCO USE IN LAST 30 D [facility] February 05, 2019 09:33 AM VA-TOBACCO NEVER USED [facility] Dec 19, 2017 04:35 PM LIFETIME NON-TOBACCO USER [facility] Jul 30, 2017 01:03 PM INPT NO TOBACCO USE IN LAST 30 D [facility] Dec 13, 2016 09:35 AM LIFETIME NON-TOBACCO USER [facility] Dec 08, 2015 12:12 PM LIFETIME NON-TOBACCO USER [facility] Dec 30, 2014 01:48 PM LIFETIME NON-TOBACCO USER [facility] Dec 31, 2013 01:19 PM LIFETIME NON-TOBACCO USER [facility] Oct 17, 2006 01:30 PM LIFETIME NON-TOBACCO USER [facility] Advance Directives: All historical and current Section Date Range: From patient's date of to the date document was created. This section includes ALL of a patient's completed or amended [place] Advance and Rescinded Directives. The entries below indicate that a directive exists for the patient, but an actual copy is not included with this document. The data comes from all [facility]. Date Advance Directives Provider Source Aug 04, 2017 CLINICAL WARNING SUSANWIL Jaylon [facility] Jul 31, 2017 ADVANCE DIRECTIVE DISCUSSION ARNOLDO LUNDBERG [facility] Nov 09, 2003 ADVANCE DIRECTIVE SHARDA STANLEY [facility] Radiology Reports: +/- 30 days of [...] the Encounter. The data comes from all [place] treatment facilities. Date/Time Radiology Report Provider Source Jan 11, 2025 10:49 AM CHEST 1 VIEW: GRIS VELASCO [id number] -[id number] M Exm Date: JAN 11, 2025@10:49 Req Phys: YAAKOV MANDUJANO Loc: [facility] EMERGENCY DEPT WALK-IN (Re Img Loc: MAIN X-RAY Service: [place] [address] (Case [id number] COMPLETE) CHEST 1 VIEW (RAD Detailed) CPT:03350 Proc Modifiers : PORTABLE EXAM Reason for Study: cough Clinical History: cough My pager number on record is: [phone]. I confirm that the pager number/cell phone number above is correct for reporting critical results. Trainees only: Enter your staff provider's info here: LAST CREATININE 1.8 H (11/16/24) Report Status: Verified Date Reported: JAN 11, 2025 Date Verified: JAN 11, 2025 Fingerprint Expert E-Sig:/ES/LUZ RICH MD Report: Exam: AP Portable Upright Chest radiograph Reason for Study: cough Comparison: 02/05/2019 Impression: Low lung volumes. No active airspace disease. No large pleural effusion. No plain film evidence for pneumothorax. The pulmonary vasculature is distinct. Right apical calcification/scarring. The cardiac silhouette is not enlarged. Report Sign Date/Time: 01/11/2025 11:32 AM Primary Interpreting Staff: LUZ RICH MD, STAFF NUCLEAR RADIOLOGIST (Fingerprint Expert) /CPD LUZ RICH [facility] Encounter Notes: All associated encounter notes This section contains the clinical notes associated to the Encounter. Date/Time Encounter Note(s) Provider Source February 02, 2025 11:45 AM OPHTHALMOLOGY ATTE NDING NOTE: LOCAL TITLE: OPHTHALMOLOGY CLINIC NOTE STANDARD TITLE: OPHTHALMOLOGY ATTENDING NOTE DATE OF NOTE: FEBRUARY 02, 2025@11:45 ENTRY DATE: FEBRUARY 02, 2025@11:45:43 AUTHOR: NORA JAVED EXP COSIGNER: URGENCY: STATUS: COMPLETED PROCEDURE: YAG capsulotomy EYE: left EYE DIAGNOSIS: posterior capsular opacity Resident physician performing the procedure: Nora Javed MD Attending Staff: Josefa Whitley MD Patient was identified by using full name and social security number. Procedure(s) to be performed was(were) discussed with patient and verified to be correct. Patient and/or family provided with appropriate education and patient and/or family acknowledged understanding. Written informed consent obtained from the patient, using the [place] approved form including the following risks: loss of vision, permanent dark spot in central vision, and need for further treatment. Progress Note containing risks, benefits and alternatives documented. Pre-op Diagnosis: Posterior capsular opacity left eye Post-op Diagnosis: SAME Procedure: yag capsulotomy left EYE Power (mJ): 1.5 Shots: 64 Complications: NONE The patient tolerated the procedure well. Return in 4-6w for VTD, MRx Dr. Whitley was available for consultation. /dino/ NORA JAVED Resident, Ophthalmology Signed: 02/02/2025 11:59 NORA JAVED [facility] February 02, 2025 11:27 AM OPHTHALMOLOGY TECH ROCKY NOTE: LOCAL TITLE: DELIVERY REPRESENTATIVE NOTE STANDARD TITLE: DELIVERY REPRESENTATIVE NOTE DATE OF NOTE: FEBRUARY 02, 2025@11:27 ENTRY DATE: FEBRUARY 02, 2025@11:27:17 AUTHOR: ION PATTON COSIGNER: URGENCY: STATUS: COMPLETED Eye Start Exam Patient: GRIS VELASCO Sex: MALE SSN: [id number] Birthdate: [birth year] Chief complaint: Laser procedure, Yag OS Pt report vision has OS , foggy. 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
--- OUTSIDE RECORDS SUMMARY | 2025-03-03 08:00 | XMS_ITS | Encounter Summary ---
Author Name [facility] [facility] [place] [facility] [place] Address [address] [place] [address] Care Team Providers Care Home Delivery Driver Name Role Phone EDUIN SLATER Primary Care [...] PART B Feb 14, 2002 PART B [id number] [phone] KRISTAMAGY ERT PATIENT MEDICARE (WNR) MEDICARE (M) PART B Feb 14, 2002 PART B [id number] KRISTAMAGY ERT PATIENT MEDICARE (WNR) MEDICARE (M) PART A Feb 15, 1992 PART A [id number] [phone] KRISTAMAGY ERT PATIENT MEDICARE (WNR) MEDICARE (M) PART A Feb 15, 1992 PART A [id number] [phone] KRISTA,MAGY ERT PATIENT Selected Encounter This section includes the information on record at [place] for the Encounter. Date/Time Encounter Type Encounter Description Reason Provider Source 2025 01:00 PM OFFICE O/P EST MOD 30 MIN PAIN CLINIC ICD-10-CM M54.16 Radiculopathy , lumbar region BULMARO WOOD [facility] Encounter Template Text not used by [place] Assessments - Encounter Diagnoses This section includes the primary and secondary diagnoses documented for the Encounter. Date/Time Primary/Secondary Diagnosis Diagnosis Name Provider Source 2025 01:49 PM PRIMARY Radiculopathy, lumbar region BULMARO WOOD [facility] Plan of Treatment: Future Appointments (+ 6 months) and Future Tests (+/- 45 days) The Plan of Treatment section includes future care activities for the patient from all [place] [facility]. This section includes future appointments and future orders which are active, pending or scheduled. Future Appointments This section includes appointments that were scheduled to occur 6 months from the date of the Encounter, up to a maximum of 20 appointments. The data comes from all [place] treatment facilities. Appointment Date/Time Appointment Type Appointme nt Facility Name Mar 17, 2025 07:40 AM AMBULATORY - REHAB MEDICIN E [facility] May 24, 2025 12:45 PM AMBULATORY - SURGERY [facility] May 25, 2025 02:20 PM AMBULATORY - MEDICINE [facility] Vital Signs: All taken on the encounter date This section contains inpatient and outpatient Vital Signs collected on the date of the Encounter. Date/Time Temperature Pulse Blood Pressure Respiratory Rate SP02 Pain Height Weight Body Mass Index Source 2025 01:00 PM 98 F 90 /min 138/75 mm[Hg] 16 /min 94 % 4 195 lb 32 [facility] Social History: Smoking Status (Most current) [...] Encounter took place. Date/Time Current Smoking Status Cam modi Nov 19, 2023 11:00 AM VA-TOBACCO NEVER USED [facility] Tobacco Use History This section includes a history of the smoking, or tobacco-related health factors, that were collected on or before the date of the Encounter. The data comes from the [place] facility where the Encounter took place. Date/Time Smoking Status/Tobacco Use Comment F acility Oct 09, 2022 11:00 AM VA-TOBACCO NEVER USED [facility] Sep 14, 2021 11:00 AM VA-TOBACCO NEVER USED [facility] Sep 01, 2020 10:30 AM VA-TOBACCO NEVER USED [facility] February 05, 2019 02:57 PM INPT NO TOBACCO USE IN LAST 30 D S [facility] February 05, 2019 09:33 AM VA-TOBACCO NEVER USED [facility] Dec 19, 2017 04:35 PM LIFETIME NON-TOBACCO USER [facility] Jul 30, 2017 01:03 PM INPT NO TOBACCO USE IN LAST 30 D AYS [facility] Dec 13, 2016 09:35 AM LIFETIME NON-TOBACCO USER [facility] Dec 08, 2015 12:12 PM LIFETIME NON-TOBACCO USER [facility] Dec 30, 2014 01:48 PM LIFETIME NON-TOBACCO USER [facility] Dec 31, 2013 01:19 PM LIFETIME NON-TOBACCO USER [facility] Oct 17, 2006 01:30 PM LIFETIME NON-TOBACCO USER [facility] Advance Directives: All historical [...] Aug 04, 2017 CLINICAL WARNING WIL DAVIS [facility] Jul 31, 2017 ADVANCE DIRECTIVE DISCUSSION ARNOLDO LUNDBERG [facility] Nov 09, 2003 ADVANCE DIRECTIVE SHARDA STANLEY [facility] Encounter Notes: All associated encounter notes This section contains the clinical notes associated to the Encounter. Date/Time Encounter Note(s) Provider Source 2025 03:34 PM PAIN OUTPATIENT NO TE: LOCAL TITLE: PAIN CENTER CLINIC NOTE STANDARD TITLE: PAIN OUTPATIENT NOTE DATE OF NOTE: 2025@15:34 ENTRY DATE: 2025@15:34:23 AUTHOR: BOBBY AYERS COSIGNER: URGENCY: STATUS: COMPLETED PAIN CENTER CLINIC NOTE Has ADDENDA COMPREHENSIVE PAIN CENTER FOLLOW UP NOTE: Interval history: Mr. Velasco is a 89 year old MALE with a PMH significant for DM, HTN, HLD, anxiety, a-fib, Eliseo's esophagus, and Psoriasis who is known to our clinic for a history of chronic low back pain. He was last seen in clinic on 10/13/2024. Previous treatment recommendations: - cont HEP - He'll call for lmbar RFA if his pain recurs, not having pain at that time - F/U as needed Since the patient's last visit: - Low back pain returned. He had bilateral lumbar RFA on 12/29/24 - Since RFA, he's continued to have axial low back pain. But he does think it has given him 70% relief. He'll still have a dull achey pain worse with lumbar extension and standing. - Now he is most bothered by a pain in the left buttock with radiation into the buttock, posterior thigh, anterolateral leg and dorsum of his left foot. - He also had a radiating pain in the right leg to the posterior thigh and calf. Historically this has been more of an issue on the right than left. He's previously had a right S1 TFESI that helped with pain. - These radiating pains are worse with walking, standing, leaning back. Can sometimes wake him from sleep. - No focal weakness or numbness. - He'd like paperwork to be filled out for handicap parking. He's still driving. Notes some neuropathy but overall has fair sensation in his feet. ROS: Symptoms as noted in HPI Physical Exam GEN: well developed, well nourished patient in no apparent distress HEENT: normocephalic, conjunctiva clear LUNGS: normal work of breathing on room air HEART: warm and well perfused ABD: not distended SKIN: no rashes, bruises or lesions in exposed surfaces MSK: Strength 5/5 in bilateral HF, KE, DF, PF, EHL. Sensory to pinprick diminished stocking distribution distal to level of MTP. DTR 2/4 in patella, 0/4 in achilles. ASSESSMENT: Mr. Velasco is a 89 year old MALE with a PMH significant for DM, HTN, HLD, anxiety, a-fib, Leiseo's esophagus, and Psoriasis who is known to [...] is myofascial pain overlying spondylosis as well. This is ongoing but had 70% relief with most recent lumbar RFA. 2. Lumbosacral Radiculopathy - Historically has had symptoms consistent with right S1 radiculopathy with good relief following a right S1 TFESI on 07/14/24. Now having left greater than right radicular symptoms in a L5>S1 distribution. MRI with correlative findings at these levels. He's interested in another epidural injection. 3. Peripheral Neuropathy - He has diminished sensation to pinprick in a stocking distribution distal to the MTP. Not having falls. Still feels the ground okay when he walks but having difficulty with longer distances. He'd like paperwork filled out for [employer] parking which is reasonable. PLAN: 1. Therapy: cont with home exercise program. 2. Medications: No changes. 3. Interventions: Reasonable to proceed with lumbar ILESI given previous relief with TFESI. Can repeat lumbar RFA as needed given ongoing benefit. 4. Imaging: No 5. F/U: As needed pending response to treatment plan Patient Education of Treatment Plan: Patient was seen and discussed with attending physician Dr. Wood. Bobby Ayers D.O. Pain Medicine Fellow /dino/ BOBBY AYERS DO RESIDENT Signed: 2025 15:45 Receipt Acknowledged By: 2025 15:59 /dino/ BULMARO WOOD DO Staff Physician 2025 ADDENDUM STATUS: COMPLETED I have personally seen [...] are as follows: 1. Low back pain - Low back pain most consistent with a combination of spondylosis and radiculitis. MRI with spondylosis worst in lower lumbar segments. 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 Has had relief of axial LBP with b/l L3-L5 radiofrequency ablations. Has had good relief of radiating pain into the b/l lower limbs with lumbar epidural steroid injections. - Injections - - 07/14/24 - right S1 transforaminal epidural steroid injection gave very good relief of pain radiating into the right lower limb. - 12/29/24 - b/l L3-L5 radiofrequency ablation gave very good relief of sharp axial LBP. PLAN: Please see fellow's note for full plan. My additions are as follows: - Had relief of sharper axial LBP with lumbar radiofrequency ablation. Would like to have an epidural steroid injection for his lower limb pain. Now getting some pain into b/l lower limbs. Will request L5-S1 interlaminar epidural steroid injection. - Patient Education of Treatment Plan: Patient's condition was discussed in detail. They were involved in shared decision making and denied further questions. /dino/ BULMARO WOOD DO Staff Physician Signed: 2025 15:59 BOBBY AYERS [facility] 2025 01:05 PM PHYSICAL MEDICINE REHAB NURSING NOTE: LOCAL TITLE: REHAB MEDICINE CLINIC NURSING NOTE STANDARD TITLE: PHYSICAL MEDICINE REHAB NURSING NOTE DATE OF NOTE: 2025@13:05 ENTRY DATE: 2025@13:05:06 AUTHOR: NNAMDI MILAN EXP COSIGNER: URGENCY: STATUS: COMPLETED Type of visit: Appointment Check In Reason for Visit: RTC Vital Signs: Blood Pressure: 138/75 (2025 13:00) Pulse: 90 (2025 13:00) Respiration: 16 (2025 13:00) Temperature: 98 F [36.7 C] (2025 13:00) Weight: 195 lb [88.45 kg] (2025 13:00) Height: 65.75 in [167.0 cm] (11/16/2024 13:26) BMI: 31.8 Pain: 4 (2025 13:00) Allergies: PENICILLIN (2008) EMPAGLIFLOZIN (Aug 21, 2022) Medications: Non-VA/Over the Counter/Herbal Medications: Patient reports taking outside and/or herbal medications. CPRS medication list has been updated to reflect changes and/or new medications. See list below. Active Outpatient Medications and Supplies: Active Outpatient Medications (including Supplies): Active Outpatient Medications Status 1) ACCU-CHEK GUIDE (GLUCOSE) TEST STRIP USE 1 STRIP ACTIVE FOUR TIMES A DAY FOR BLOOD SUGAR TESTING TO CHECK BLOOD SUGAR--USE WITHIN 3 MINUTES OF REMOVING FROM CONTAINER 2) AMIODARONE HCL (PACERONE) 200MG TAB TAKE ONE TABLET ACTIVE BY MOUTH EVERY DAY INDEFINITELY FOR AFIB 3) AMLODIPINE BESYLATE 5MG TAB TAKE ONE TABLET BY MOUTH ACTIVE EVERY DAY FOR BLOOD PRESSURE - NEW STRENGTH NOVEMBER 2024 4) APIXABAN 2.5MG TAB TAKE ONE TABLET BY MOUTH EVERY 12 ACTIVE HOURS TO PREVENT BLOOD CLOTS/STROKES 5) ATORVASTATIN CALCIUM 40MG TAB TAKE ONE TABLET BY ACTIVE MOUTH AT BEDTIME FOR CHOLESTEROL 6) CAMPHOR 0.5/MENTHOL 0.5% LOTION APPLY THIN LAYER ACTIVE TOPICALLY FOUR TIMES A DAY NEEDED FOR ITCHING 7) GABAPENTIN 400MG CAP TAKE ONE CAPSULE BY MOUTH TWICE ACTIVE A DAY FOR NEUROPATHIC PAIN 8) INSULIN,GLARGINE 100 UNT/ML 3ML SOLOSTAR INJECT 22 ACTIVE UNITS UNDER THE SKIN EVERY DAY FOR DIABETES 9) LISINOPRIL 20MG TAB TAKE ONE TABLET BY MOUTH EVERY ACTIVE DAY FOR HIGH BLOOD PRESSURE. 10) NEEDLE,PEN 31G,8MM USE 1 NEEDLE UNDER THE SKIN ACTIVE DIRECTED *DISPOSE OF IN A HARD-PLASTIC CONTAINER WITH A SCREW-ON LID CONTACT GARBAGE HAULER FOR PROPER DISPOSAL 11) TAMSULOSIN HCL 0.4MG CAP TAKE ONE CAPSULE BY MOUTH ACTIVE EVERY DAY Active Non-VA Medications Status 1) Non-VA ACETAMINOPHEN [...] CAP/TAB 1 TAB MOUTH EVERY DAY ACTIVE 20 Total Medications Patient reports the following changes regarding the current pharmacy list of medications: The above medication list confirmed with patient. A copy of the above medication list given to the MD for review and update. Provider will give printed copy of medication list to patient with any changes documented on printed medication list. /dino/ NNAMDI MILAN LPN LPN Signed: 2025 13:05 NNAMDI MILAN [facility]
--- OUTSIDE RECORDS SUMMARY | 2025-03-08 09:48 | XMS_ITS | Encounter Summary ---
Author Name [facility] [place] Organization [place] Address [address] [place] [address] Care Team Providers Care Wood Getter Name Role Phone EDUIN SLATER Primary Care [...] PART B Feb 14, 2002 PART B [id number] [phone] MAGY VELASCO ERT PATIENT MEDICARE (WNR) MEDICARE (M) PART B Feb 14, 2002 PART B [id number] KRISTAMAGY ERT PATIENT MEDICARE (WNR) MEDICARE (M) PART A Feb 15, 1992 PART A [id number] MAGY VELASCO ERT PATIENT MEDICARE (WNR) MEDICARE (M) PART A Feb 15, 1992 PART A [id number] MAGY VELASCO PATIENT Selected Encounter This section includes the information on record at [place] for the Encounter. Date/Time Encounter Type Encounter Description Reason Provider Source Mar 08, 2025 02:48 PM PH1 ASSMT&MGMT NQHP 5-10 TELEPHONE/REHAB AND SUPPORT ICD-10-CM M47.896 Other spondylosis, lumbar region AYDE ALDANA [facility] Encounter Template Text not used by [facility] Assessments - Encounter Diagnoses This section includes the primary and secondary diagnoses documented for the Encounter. Date/Time Primary/Secondary Diagnosis Diagnosis Name Provider Source Mar 08, 2025 02:48 PM PRIMARY Other spondylosis, lumbar region AYDE ALDANA [facility] Plan of Treatment: Future Appointments (+ 6 months) and Future Tests (+/- 45 days) The Plan of Treatment section includes future care activities for the patient from all [place] [facility]. This section includes future appointments and future orders which are active, pending or scheduled. Future Appointments This section includes appointments that were scheduled to occur 6 months from the date of the Encounter, up to a maximum of 20 appointments. The data comes from all [place] treatment facilities. Appointment Date/Time Appointment Type Appointme nt Facility Name Mar 17, 2025 07:40 AM AMBULATORY - REHAB MEDICIN E [facility] May 24, 2025 12:45 PM [facility] May 25, 2025 02:20 PM [facility] Social History: Smoking Status (Most [...] 19, 2023 11:00 AM VA-TOBACCO NEVER USED [facility] Tobacco Use History This section includes a history of the smoking, or tobacco-related health factors, that were collected on or before the date of the Encounter. The data comes from the [place] facility where the Encounter took place. Date/Time Smoking Status/Tobacco Use Comment F acility Oct 09, 2022 11:00 AM VA-TOBACCO NEVER USED [facility] Sep 14, 2021 11:00 AM VA-TOBACCO NEVER USED [facility] Sep 01, 2020 10:30 AM VA-TOBACCO NEVER USED [facility] February 05, 2019 02:57 PM INPT NO TOBACCO USE IN LAST 30 D [facility] February 05, 2019 09:33 AM VA-TOBACCO NEVER USED [facility] Dec 19, 2017 04:35 PM LIFETIME NON-TOBACCO USER [facility] Jul 30, 2017 01:03 PM INPT NO TOBACCO USE IN LAST 30 D AYS [facility] Dec 13, 2016 09:35 AM LIFETIME NON-TOBACCO USER [facility] Dec 08, 2015 12:12 PM LIFETIME NON-TOBACCO USER [facility] Dec 30, 2014 01:48 PM LIFETIME NON-TOBACCO USER [facility] Dec 31, 2013 01:19 PM LIFETIME NON-TOBACCO USER [facility] Oct 17, 2006 01:30 PM LIFETIME NON-TOBACCO USER [facility] Advance Directives: All historical and current Section Date Range: From patient's date of to the date document was created. This section includes ALL of a patient's completed or amended [place] Advance and Rescinded Directives. The entries below indicate that a directive exists for the patient, but an actual copy is not included with this document. The data comes from all [place] facilities. Date Advance Directives Provider Source Aug 04, 2017 CLINICAL WARNING [facility] Jul 31, 2017 ADVANCE DIRECTIVE DISCUSSION ARNOLDO LUNDBERG [facility] Nov 09, 2003 ADVANCE DIRECTIVE SHARDA [facility] Encounter Notes: All associated encounter notes This section contains the clinical notes associated to the Encounter. Date/Time Encounter Note(s) Provider Source Mar 08, 2025 02:54 PM REPORT OF CONTACT: LOCAL TITLE: PATIENT CONTACT NOTE STANDARD TITLE: REPORT OF CONTACT DATE OF NOTE: MAR 08, 2025@14:54 ENTRY DATE: MAR 08, 2025@14:54:27 AUTHOR: AYDE ALDANA COSIGNER: URGENCY: STATUS: COMPLETED Patient contact Name of : GRIS VELASCO Date & Time of Contact: Feb@14:54 Type of Contact: Telephone Reason for Contact: Pre-Procedure Phone Call Contact: PROCEDURE: [place]/surrogate contacted via telephone regarding a scheduled interventional pain procedure appointment. Date & Time: Mar@07:40 Planned Procedure: Lumbosacral interlaminar JOAQUIM Specific Location: L5-S1 Tack Maker: /surrogate informed cannot drive for 12 hours following procedure and they will need a delivery driver/customer service for procedure. is aware the procedure will be cancelled if a delivery driver/customer service is unavailable. [place] Verbalizes Understanding: Yes MEDICAL STATUS: Past Medical History reviewed for medical contraindications had surgical procedure(s)(including dental) within the last three months: 02/02 eye procedure - okay has upcoming planned surgery: Denies [place] had fracture(s) within the last three months: Denies has history of nausea, lightheadedness, excessive sweating, feeling warm, and /or blood pressure/heart rate drop during a procedure or blood draw: Denies has a rash or any open wounds: Yes Small wound to base of pinky finger - almost completely scabbed. Advised to call if any s/s of infection or area open prior to pain procedure. [place] is /possibly : Not applicable has plans to travel outside of the country or to a place in the [place] where there is not access to medical care within 4 days following the procedure: Denies is currently taking antibiotics: Denies CBC Collection DT Spec WBC HGB HCT PLT MCV NEUT LYMPHS 01/11/2025 11:10 BLOOD 6.4 12.3 L 36.9 L 118 L 96.1 68.6 15.4 11/16/2024 12:24 BLOOD 7.5 12.7 L 39.6 L 145 L 98.0 Educated /surrogate to call radio despatcher Phone Line if needing to take antibiotics before having the procedure. Yes Educated /surrogate on need to be free of active infections and off antibiotics that were prescribed for infection for 7 days prior to having the procedure done. Yes is Diabetic: Yes HEMOGLOBIN A1C 6.1 H (11/16/24) Hgb A1C is in appropriate range to proceed with procedure has a pacemaker, defibrillator, nerve stimulator or any implanted electronic device: Not applicable [place] has had steroid injections within the last calendar year within or outside of the [facility]: Yes 07/14/25 50mg Allergies reviewed: [place] has allergy concerns related to pain procedure: Denies EDUCATION/INSTRUCTIONS /surrogate indicates readiness to learn. Instructed on the following and verbalized understanding of instructions. NPO status (no food 4 hours prior to procedure, no liquids 2 hours prior to procedure.) Notified to arrive 30 minutes prior to scheduled appointment time for check-in at [facility]. To take medications as prescribed, with the exception of any contraindicated medications as instructed by pain clinic staff and/or anticoagulation clinic (if applicable). To call if any medical changes prior to procedure. Recommended no vaccines within 2 weeks of steroid injection. [place]/surrogate states understanding Yes MEDICATIONS takes blood thinning medications: Yes: takes Apixaban and will need to stop taking 3 days prior to procedure, per protocol or provider instruction. takes ASA/ASA containing products: Denies instructed to hold ASA/ASA containing products for 6 days prior to procedure. takes Fish Oil or Vitamin E: Not applicable takes NSAIDs: Not applicable takes Phosphodiesterase inhibitors (e.g. Sildenafil, Vardenafil, Tadalafil, Cilostazol): Not applicable [place] is followed by the [facility] Anticoagulation Clinic. Yes Consult made to Anticoagulation Clinic [place] provided with direct Pain Procedure Nurse Line phone number [phone] and encouraged to call if needs to reschedule appointment or if any questions arise. /dino/ AYDE ALDANA RN REGISTERED NURSE Signed: 03/08/2025 14:55 AYDE ALDANA [facility]
--- OUTSIDE RECORDS SUMMARY | 2025-03-08 10:17 | XMS_ITS | Encounter Summary ---
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 Date/Time Primary/Secondary Diagnosis Diagnosis Name Provider Source Mar 08, 2025 03:22 PM PRIMARY correction (current) use of anticoagulants CALEB OLIVERA [facility] Mar 08, 2025 03:22 PM SECONDARY Unspecified atrial fibrillation CALEB OLIVERA [facility] Plan of Treatment: Future Appointments (+ 6 months) and Future Tests (+/- 45 days) The Plan of Treatment section includes future care activities for the patient from all [place] [facility]. This section includes future appointments and future orders which are active, pending or scheduled. Future Appointments This section includes appointments that were scheduled to occur 6 months from the date of the Encounter, up to a maximum of 20 appointments. The data comes from all [place] treatment facilities. Appointment Date/Time Appointment Type Appointme nt Facility Name Mar 17, 2025 07:40 AM AMBULATORY - REHAB MEDICIN E [facility] May 24, 2025 12:45 PM AMBULATORY - SURGERY [facility] May 25, 2025 02:20 PM AMBULATORY - MEDICINE [facility] Social History: Smoking Status (Most current) and Tobacco Use (All prior to encounter date) This section includes the most current, and the historical, smoking and tobacco- related health factors from the [place] facility where the Encounter took place. Current Smoking Status This section includes the most current smoking, or tobacco-related health factor, from the [place] facility where the Encounter took place. Date/Time Current Smoking Status Comment Billie modi Nov 19, 2023 11:00 AM [place]-TOBACCO NEVER USED [facility] Tobacco Use History This section includes a history of the smoking, or tobacco-related health factors, that were collected on or before the date of the Encounter. The data comes from the [place] facility where the Encounter took place. Date/Time Smoking Status/Tobacco Use Comment Alda chicas Oct 09, 2022 11:00 AM VA-TOBACCO NEVER USED [facility] Sep 14, 2021 11:00 AM VA-TOBACCO NEVER USED [facility] Sep 01, 2020 10:30 AM VA-TOBACCO NEVER USED [facility] February 05, 2019 02:57 PM INPT NO TOBACCO USE IN LAST 30 D S [facility] February 05, 2019 09:33 AM VA-TOBACCO NEVER USED [facility] Dec 19, 2017 04:35 PM LIFETIME NON-TOBACCO USER [facility] Jul 30, 2017 01:03 PM INPT NO TOBACCO USE IN LAST 30 D AYS [facility] Dec 13, 2016 09:35 AM LIFETIME NON-TOBACCO USER [facility] Dec 08, 2015 12:12 PM LIFETIME NON-TOBACCO USER [facility] Dec 30, 2014 01:48 PM LIFETIME NON-TOBACCO USER [facility] Dec 31, 2013 01:19 PM LIFETIME NON-TOBACCO USER [facility] Oct 17, 2006 01:30 PM LIFETIME NON-TOBACCO USER [facility] Advance Directives: All historical and current Section Date Range: From patient's date of to the date document was created. This section includes ALL of a patient's completed or amended [place] Advance and Rescinded Directives. The entries below indicate that a directive exists for the patient, but an actual copy is not included with this document. The data comes from all [place] facilities. Date Advance Directives Provider Source Aug 04, 2017 CLINICAL WARNING WIL DAVIS [facility] Jul 31, 2017 ADVANCE DIRECTIVE DISCUSSION ARNOLDO LUNDBERG [facility] Nov 09, 2003 ADVANCE DIRECTIVE [facility] Encounter Notes: All associated encounter notes This section contains the clinical notes associated to the Encounter. 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 S/O: ---- Obtained by chart review. Procedure: Lumbosacral ILESI Date: 03/17/25 Surgical bleed risk: special precautions, pain clinic 3 day hold Thromboembolic/Bleed Risk: see above Dashboard flags: none LABS ---- Age: 89 Weight: 195 lb [88.45 kg] (2025 13:00) Height: 65.75 in [167.0 cm] (11/16/2024 13:26) CREATININE 1.6 H PLASMA (01/11/25 11:10) 1.8 H PLASMA (11/16/24 12:24) Cockcroft & Gault (Actual body weight) = 40 mL/min Collection DT Spec WBC HGB HCT PLT MCV NEUT LYMPHS 01/11/2025 11:10 BLOOD 6.4 12.3 L 36.9 L 118 L 96.1 68.6 15.4 11/16/2024 12:24 BLOOD 7.5 12.7 L 39.6 L 145 L 98.0 Collection DT Specimen Test Name Result Units Ref Range 01/11/2025 11:10 PLASMA BILIRUBIN, TOTAL 0.7 mg/dL 0.2 - 1.2 01/11/2025 11:10 PLASMA ALKALINE PHOSPHAT 84 U/L 40 - 150 01/11/2025 11:10 PLASMA AST/SGOT 52 H U/L 11 - 34 01/11/2025 11:10 PLASMA ALT/SGPT 59 H U/L Ref: <=44 A/P: ---- No enoxaparin bridging warranted with DOACs. If this procedure is rescheduled and new instructions are needed OR changes in health (ie: clotting complications, stroke) occur between now and the time of the procedure, anticoagulation clinic should be contacted. If procedure is rescheduled, these recommendations can be applied to new procedure date ONLY IF there are no changes to renal function or health (new thromboembolic event/CVA, recent clotting complications) since consult completion. A new consult should be submitted for reschedules if recent thromboembolic event/CVA occurred or there are renal function changes. DOAC should not be held if procedure is cancelled. - Do not take for 3 days before procedure OR the day of procedure. The last preoperative dose is 4 days before the procedure. - If there are no major bleeding complications, resume 24 hours later (the day after the procedure) at the usual dose unless otherwise instructed by the proceduralist. - Interventional pain RN team responsible for educating patient on recommendations at pre-op call. If there are questions or concerns about holding anticoagulation, patient should be referred to anticoag clinic at [phone], option 3. Time: 15min /dino/ Jessica Olivera, Pharm.D. Clinical Street Light Mechanic Signed: 03/08/2025 15:22 JESSICA OLIVERA [facility]
--- OUTSIDE RECORDS SUMMARY | 2025-03-15 09:09 | XMS_ITS | Encounter Summary ---
Author Name [facility] [place] Address [address] [place] [address] Care Team Providers Care Cover Inspector Name Role Phone BRYON EDUIN Primary Care [...] PART B Feb 14, 2002 PART B [id number] [phone] KRISTAMAGY ERT PATIENT MEDICARE (WNR) MEDICARE (M) PART B Feb 14, 2002 PART B [id number] [phone] KRISTAMAGY ERT PATIENT MEDICARE (WNR) MEDICARE (M) PART A Feb 15, 1992 PART A [id number] [phone] MAGY VELASCO ERT PATIENT MEDICARE (WNR) MEDICARE (M) PART A Feb 15, 1992 PART A [id number] [phone] KRISTAMAGY JORGE ERT PATIENT Selected Encounter This section includes the information on record at [place] for the Encounter. Date/Time Encounter Type Encounter Description Reason Pro vider Source Mar 15, 2025 02:09 PM Outpatient Encounter OPHTHALMOLOGY IHE Encounter Template Text not used by [facility] Plan of Treatment: Future Appointments (+ 6 months) and Future Tests (+/- 45 days) The Plan of Treatment section includes future care activities for the patient from all [place] [facility]. This section includes future appointments and future orders which are active, pending or scheduled. Future Appointments This section includes appointments that were scheduled to occur 6 months from the date of the Encounter, up to a maximum of 20 appointments. The data comes from all [place] treatment facilities. Appointment Date/Time Appointment Type Appointme nt Facility Name Mar 17, 2025 07:40 AM AMBULATORY - REHAB MEDICIN E [facility] May 24, 2025 12:45 PM [facility] May 25, 2025 02:20 PM [facility] Social History: Smoking Status (Most current) and Tobacco Use (All prior to encounter date) This section includes the most current, and the historical, smoking and tobacco- related health factors from the [place] facility where the Encounter took place. Current Smoking Status This section includes the most current smoking, or tobacco-related health factor, from the [place] facility where the Encounter took place. Date/Time Current Smoking Status Comment Billie modi Nov 19, 2023 11:00 AM [place]-TOBACCO NEVER USED [facility] Tobacco Use History This section includes a history of the smoking, or tobacco-related health factors, that were collected on or before the date of the Encounter. The data comes from the [place] facility where the Encounter took place. Date/Time Smoking Status/Tobacco Use Comment F acility Oct 09, 2022 11:00 AM VA-TOBACCO NEVER USED [facility] Sep 14, 2021 11:00 AM VA-TOBACCO NEVER USED [facility] Sep 01, 2020 10:30 AM VA-TOBACCO NEVER USED [facility] February 05, 2019 02:57 PM INPT NO TOBACCO USE IN LAST 30 D [facility] February 05, 2019 09:33 AM VA-TOBACCO NEVER USED [facility] Dec 19, 2017 04:35 PM LIFETIME NON-TOBACCO USER [facility] Jul 30, 2017 01:03 PM INPT NO TOBACCO USE IN LAST 30 D [facility] Dec 13, 2016 09:35 [...] ALL of a patient's completed or amended [place] Advance and Rescinded Directives. The entries below indicate that a directive exists for the patient, but an actual copy is not included with this document. The data comes from all [place] facilities. Date Advance Directives Provider Source Aug 04, 2017 CLINICAL WARNING WIL DAVIS [facility] Jul 31, 2017 ADVANCE DIRECTIVE DISCUSSION ARNOLDO LUNDBERG [facility] Nov 09, 2003 ADVANCE DIRECTIVE [facility] Encounter Notes: All associated encounter notes This section contains the clinical notes associated to the Encounter. Date/Time Encounter Note(s) Provider Source Mar 15, 2025 02:09 PM REPORT OF CONTACT: LOCAL TITLE: APPOINTMENT SCHEDULING NOTE STANDARD TITLE: REPORT OF CONTACT DATE OF NOTE: MAR 15, 2025@14:09 ENTRY DATE: MAR 15, 2025@14:09:45 AUTHOR: DAPHNE METZGER COSIGNER: URGENCY: STATUS: COMPLETED Attempted to schedule Cancellation Patient cancellation Contact attempt made to 1st attempt Telephone 2nd attempt Letter - Sent letter by regular [place] mail to address on file: [place] [address] [place], [place] [id number] Disposition order request after Mar If calls back, schedule appt for: [facility] resident desmond alfredo mrx /es/ CHRISTIAN METZGER ADVANCED [facility]SA Signed: 03/15/2025 14:10 CHRISTIAN METZGER [facility]
--- OUTSIDE RECORDS SUMMARY | 2025-03-17 02:40 | XMS_ITS | Encounter Summary ---
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 Date/Time Encounter Type Encounter Description Reason Provider Source Mar 17, 2025 07:40 AM NJX INTERLAMINAR LMBR/SAC PAIN CLINIC ICD-10-CM M54.16 Radiculopath y, lumbar region CAESAR SEXTON [facility] Encounter Template Text not used by [place] Assessments - Encounter Diagnoses This section includes the primary and secondary diagnoses documented for the Encounter. Date/Time Primary/Secondary Diagnosis Diagnosis Name Provider Source Mar 17, 2025 08:26 AM PRIMARY Radiculopathy, lumbar region CAESAR SEXTON [facility] Plan of Treatment: Future Appointments (+ 6 months) and Future Tests (+/- 45 days) The Plan of Treatment section includes future care activities for the patient from all [place] [facility]. This section includes future appointments and future orders which are active, pending or scheduled. Future Appointments This section includes appointments that were scheduled to occur 6 months from the date of the Encounter, up to a maximum of 20 appointments. The data comes from all [place] treatment facilities. Appointment Date/Time Appointment Type Appointme nt Facility Name May 24, 2025 12:45 PM AMBULATORY - SURGERY [facility] May 25, 2025 02:20 PM AMBULATORY - MEDICINE [facility] Vital Signs: All taken on the encounter date This section contains inpatient and outpatient Vital Signs collected on the date of the Encounter. Date/Time Temperature Pulse Blood Pressure Respiratory Rate SP02 Pain Height Weight Body Mass Index Source Mar 17, 2025 08:06 AM 79 /min 154/82 mm[Hg] 16 /min 99 % 0 [facility] Mar 17, 2025 07:31 AM 97.5 F 76 /min 155/75 mm[Hg] 16 /min 98 % 4 [facility] Social History: Smoking Status (Most current) and Tobacco Use (All prior to encounter date) This section includes the most current, and the historical, smoking and tobacco- related health factors from the [place] facility where the Encounter took place. Current Smoking Status This section includes the most current smoking, or tobacco-related health factor, from the [place] facility where the Encounter took place. Date/Time Current Smoking Status Cam modi Nov 19, 2023 11:00 AM VA-TOBACCO NEVER USED [facility] Tobacco Use History This section includes a history of the smoking, or tobacco-related health factors, that were collected on or before the date of the Encounter. The data comes from the [place] facility where the Encounter took place. Date/Time Smoking Status/Tobacco Use Comment F acility Oct 09, 2022 11:00 AM VA-TOBACCO NEVER USED [facility] Sep 14, 2021 11:00 AM VA-TOBACCO NEVER USED [facility] Sep 01, 2020 10:30 AM VA-TOBACCO NEVER USED [facility] February 05, 2019 02:57 PM INPT NO TOBACCO USE IN LAST 30 D AYS [facility] February 05, 2019 09:33 AM VA-TOBACCO NEVER USED [facility] Dec 19, 2017 04:35 PM LIFETIME NON-TOBACCO USER [facility] Jul 30, 2017 01:03 PM INPT NO TOBACCO USE IN LAST 30 D [facility] Dec 13, 2016 09:35 AM LIFETIME NON-TOBACCO USER [facility] Dec 08, 2015 12:12 PM LIFETIME NON-TOBACCO USER [facility] Dec 30, 2014 01:48 PM LIFETIME NON-TOBACCO USER [facility] Dec 31, 2013 01:19 PM LIFETIME NON-TOBACCO USER [facility] Oct 17, 2006 01:30 PM LIFETIME NON-TOBACCO USER [facility] Advance Directives: All historical and current Section Date Range: From patient's date of to the date document was created. This section includes ALL of a patient's completed or amended [place] Advance and Rescinded Directives. The entries below indicate that a directive exists for the patient, but an actual copy is not included with this document. The data comes from all [place] facilities. Date Advance Directives Provider Source Aug 04, 2017 CLINICAL WARNING WIL DAVIS [facility] Jul 31, 2017 ADVANCE DIRECTIVE DISCUSSION ARNOLDO LUNDBERG [facility] Nov 09, 2003 ADVANCE DIRECTIVE SHARDA STANLEY [facility] Encounter Notes: All associated encounter notes This section contains the clinical notes associated to the Encounter. Date/Time Encounter Note(s) Provider Source Mar 17, 2025 08:15 AM PAIN CONSULT: LOCAL TITLE: PAIN INTERVENTIONAL PROCEDURE CONSULT STANDARD TITLE: PAIN CONSULT DATE OF NOTE: MAR 17, 2025@08:15 ENTRY DATE: MAR 17, 2025@08:15:27 AUTHOR: CAESAR SEXTON EXP COSIGNER: URGENCY: STATUS: COMPLETED PM&R PAIN INTERVENTIONAL PROCEDURE NOTE Location: Lumbar Level: 4-5 Procedure: Interlaminar Epidural Steroid Injection Left Paramedian Preprocedural diagnosis: lumbar radiculopathy Postprocedural Diagnosis: Needle Type: Tuohy 22g 9cm Loss of resistance depth: 6cm Contrast Dye: Omni 180 Injected Solution: Solumedrol 40 mg,Preservative Free Normal Saline 2 mL, Lidocaine 1% 2 mL Complications None Preprocedure pain level 4/10 Postprocedure pain level 0/10 The heart rate and pulse oximetry were continuously monitored throughout the procedure. Time Out: A procedural pause verifying correct patient, medical record number, allergies, and surgical site was performed immediately prior to beginning the procedure. The skin and subcutaneous tissue overlying the target site of injection was anesthetized using 2mL of 1% lidocaine MPF with a 25-gauge, 1 -inch needle. The above noted Tuohy needle was advanced under fluoroscopic guidance towards the epidural space. Lateral fluoroscopic imaging (and/or Contralateral Oblique imaging in the Cervico-thoracic spine) was used to confirm depth. The epidural space was identified using a loss of resistance to AIR technique. (See above for loss of resistance depth). After negative aspiration for heme or CSF, the above noted contrast dye was injected to verify spread within the dorsal epidural space without vascular uptake. After repeat negative aspiration for heme or CSF, the above noted steroid solution was slowly injected in increments. The needle was then retracted approximately group home and the needle track was flushed with 0.5 ml of 1% Lidocaine to clear the needle prior to removal. The Tuohy needle was then removed. A sterile bandage was placed over the injection site. The patient tolerated the procedure well. The patient was carefully escorted to the recovery room in stable condition. After meeting discharge criteria, the patient was discharged home. Discussion: The patient was advised to relax and [...] with referring provider Patient may contact the [facility] electrolytic call line to schedule a repeat injection in >3 months months should today's procedure provide prolonged benefit/improvement in function 2. The patient has agreed not to travel out of the area for the next 4 days following the procedure so that they can be reevaluated if necessary. 3. No medications were prescribed at today's visit. 4. Additional recommendations: none I was present for the entirety of the procedure including the timeout and assisted the Pain Fellow with procedure as needed. /dino/ CAESAR SEXTON MD STAFF PHYSICIAN Signed: 03/17/2025 08:45 CAESAR SEXTON [facility] Mar 17, 2025 07:52 AM PAIN CONSULT: LOCAL TITLE: IMAGING REQUEST CONSULT STANDARD TITLE: PAIN CONSULT DATE OF NOTE: MAR 17, 2025@07:52 ENTRY DATE: MAR 17, 2025@07:52:28 AUTHOR: MAYA KWONG EXP COSIGNER: URGENCY: STATUS: COMPLETED Images were taken to facilitate procedure carried out by medical provider. <5mL. of OmniPaque 180 was used for this procedure. /dino/ Marlee RUELAS(Vidya) PSYCHOTHERAPIST Signed: 03/17/2025 07:52 MAYA KWONG [facility] Mar 17, 2025 07:31 AM PHYSICAL MEDICINE REHAB NURSING NOTE: LOCAL TITLE: REHAB MEDICINE CLINIC NURSING NOTE STANDARD TITLE: PHYSICAL MEDICINE REHAB NURSING NOTE DATE OF NOTE: MAR 17, 2025@07:31 ENTRY DATE: MAR 17, 2025@07:31:56 AUTHOR: MARIKA MCCOLLUM EXP COSIGNER: URGENCY: STATUS: COMPLETED REHAB MEDICINE CLINIC NURSING NOTE Has ADDENDA PM&R Interventional Pain Procedure Pre-procedure Patient escorted to clinic via Ambulatory Patient is scheduled for: ILESI Patient was identified by using full name [...] acknowledged understanding: Yes 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 ASA/ASA containing products have been held per protocol: Denies Fish Oil or Vitamin E in the last 6 days: Not applicable NSAIDS in the last 7 days: Not applicable Phosphodiesterase Inhibitors (e.g. Sildenafil, Vardenafil, Tadalafil, Cilostazol) in the last 48 hours: Not applicable Diabetic: Denies HEMOGLOBIN A1C 6.1 H (11/16/24) Antibiotics in [...] LST orders: Not applicable Procedure explained by: Dale Written informed consent obtained by Jessica, using IMed consent. Informed Consent Progress Note containing risks, benefits and alternatives documented. Correct site marked by attending physician. /dino/ MARIKA MCCOLLUM R.N RN Signed: 03/17/2025 07:53 03/17/2025 ADDENDUM STATUS: COMPLETED PM&R Interventional Pain Procedure Procedure: Site Marking: Site marked, then verified [...] Confirm allergies: Yes Fire risk assessment completed: Not Applicable Checklist Comment: Procedure started: 0752 Procedure ended: 0800 Staff Physician: Emmanuelle Medical Fellow: Jessica Emt Intermediate: CHERY RN: Charlotte Master Police Detective: Stu Other: Nursing observations: Patient assisted to position Supine to facilitate procedure. Patient is prepped and draped in sterile fashion, per Jessica. Patient is continually assessed for comfort and [...] via Stretcher to post procedure area. Pulse: 79 Pulse Oximetry: 99 Respirations: 16 Blood Pressure: 154/82 Pain: 0 No Procedure-related weakness, balance or gait alteration [...] Coordinator for questions and concerns was provided. [place] advised to resume anticoagulation medications as directed by anticoagulation consult. Patient verbalized understanding. Wristband Removal: Patient wristband was removed and destroyed by being placed in the shred bin. Patient discharged via Ambulatory at 0815. /dino/ MAYA APONTE RN Elephant Keeper Nurse Staff Pharmacist Signed: 03/17/2025 08:20 MARIKA MCCOLLUM [facility]
--- OUTSIDE RECORDS SUMMARY | 2025-03-17 02:42 | XMS_ITS | Encounter Summary ---
Author Name [facility] [place] Address [address] [place] [address] Care Team Providers Care Pencil Inspector Name Role Phone BRYON EDUIN Primary Care Provider BOBBY Benrabe Unavailable Unavailable Insurance Providers: All historical and [...] PART B Feb 14, 2002 PART B [id number] [phone] KRISTAMAGY ERT PATIENT MEDICARE (WNR) MEDICARE (M) PART B Feb 14, 2002 PART B [id number] [phone] MAGY VELASCO ERT PATIENT MEDICARE (WNR) MEDICARE (M) PART A Feb 15, 1992 PART A [id number] MAGY VELASCO ERT PATIENT MEDICARE (WNR) MEDICARE (M) PART A Feb 15, 1992 PART A [id number] [phone] KRISTA,MAGY ERT PATIENT Selected Encounter This section includes the information on record at [place] for the Encounter. Date/Time Encounter Type Encounter Description Reason Pro vider Source Mar 17, 2025 07:42 AM Outpatient Encounter EVENT (HISTORICAL) IHE Encounter Template Text not used by [place] Plan of Treatment: Future Appointments (+ 6 months) and Future Tests (+/- 45 days) The Plan of Treatment section includes future care activities for the patient from all [place] [facility] This section includes future appointments and [...] 24, 2025 12:45 PM AMBULATORY - SURGERY [facility] May 25, 2025 02:20 PM AMBULATORY [...] mm[Hg] 16 /min 99 % 0 [facility] Mar 17, 2025 07:31 AM 97.5 F 76 /min 155/75 mm[Hg] 16 /min 98 % 4 [facility] Social History: Smoking Status (Most [...] 19, 2023 11:00 AM VA-TOBACCO NEVER USED [facility] Tobacco Use History This section includes a history of the smoking, or tobacco-related health factors, that were collected on or before the date of the Encounter. The data comes from the [place] facility where the Encounter took place. Date/Time Smoking Status/Tobacco Use Comment F [email or web address] Oct 09, 2022 11:00 AM VA-TOBACCO NEVER USED [facility] Sep 14, 2021 11:00 AM VA-TOBACCO NEVER USED [facility] Sep 01, 2020 10:30 AM VA-TOBACCO NEVER USED [facility] February 05, 2019 02:57 PM INPT NO TOBACCO USE IN LAST 30 D AYS [facility] February 05, 2019 09:33 AM VA-TOBACCO NEVER USED [facility] Dec 19, 2017 04:35 PM LIFETIME NON-TOBACCO USER [facility] Jul 30, 2017 01:03 PM INPT NO TOBACCO USE IN LAST 30 D AYS [facility] Dec 13, 2016 09:35 AM LIFETIME NON-TOBACCO USER [facility] Dec 08, 2015 12:12 PM LIFETIME NON-TOBACCO USER [facility] Dec 30, 2014 01:48 PM LIFETIME NON-TOBACCO USER [facility] Dec 31, 2013 01:19 PM LIFETIME NON-TOBACCO USER [facility] Oct 17, 2006 01:30 PM LIFETIME NON-TOBACCO USER [facility] Advance Directives: All historical and current Section Date Range: From patient's date of to the date document was created. This section includes ALL of a patient's completed or amended [place] Advance and Rescinded Directives. The entries below indicate that a directive exists for the patient, but an actual copy is not included with this document. The data comes from all [place] facilities. Date Advance Directives Provider Source Aug 04, [address] [facility] Jul 31, 2017 ADVANCE DIRECTIVE DISCUSSION ARNOLDO LUNDBERG [facility] Nov 09, 2003 ADVANCE DIRECTIVE SHARDA STANLEY [facility]
--- OUTSIDE RECORDS SUMMARY | 2025-03-22 04:40 | XMS_ITS | Encounter Summary ---
Author Name [facility] [place] Address [address] [place] [address] Care Team Providers Care Hairpiece Stylist Name Role Phone BRYON EDUIN Primary Care [...] PART B Feb 14, 2002 PART B [id number] [phone] KRISTAMAGY ERT PATIENT MEDICARE (WNR) MEDICARE (M) PART B Feb 14, 2002 PART B [id number] [phone] KRISTAMAGY ERT PATIENT MEDICARE (WNR) MEDICARE (M) PART A Feb 15, 1992 PART A [id number] [phone] KRISTAMAGY ERT PATIENT MEDICARE (WNR) MEDICARE (M) PART A Feb 15, 1992 PART A [id number] [phone] KRISTAMAGY ERT PATIENT Selected Encounter This section includes the information on record at [place] for the Encounter. Date/Time Encounter Type Encounter Description Reason Pro vider Source Mar 22, 2025 09:40 AM Outpatient Encounter CLINICAL PHARMACY IHE Encounter Template Text not used by [place] Plan of Treatment: Future Appointments (+ 6 months) and Future Tests (+/- 45 days) The Plan of Treatment section includes future care activities for the patient [facility] [place] [facility] [place] This section includes future appointments and future [...] 24, 2025 12:45 PM AMBULATORY - SURGERY [facility] May 25, 2025 02:20 PM [facility] Social History: Smoking Status (Most current) [...] 19, 2023 11:00 AM [place]-TOBACCO NEVER USED [facility] Tobacco Use History This section includes a history of the smoking, or tobacco-related health factors, that were collected on or before the date of the Encounter. The data comes from the [place] facility where the Encounter took place. Date/Time Smoking Status/Tobacco Use Comment F acility Oct 09, 2022 11:00 AM VA-TOBACCO NEVER USED [facility] Sep 14, 2021 11:00 AM VA-TOBACCO NEVER USED [facility] Sep 01, 2020 10:30 AM VA-TOBACCO NEVER USED [facility] February 05, 2019 02:57 PM INPT NO TOBACCO USE IN LAST 30 D [facility] February 05, 2019 09:33 AM VA-TOBACCO NEVER USED [facility] Dec 19, 2017 04:35 PM LIFETIME NON-TOBACCO USER [facility] Jul 30, 2017 01:03 PM INPT NO TOBACCO USE IN LAST 30 D S [facility] Dec 13, 2016 09:35 AM LIFETIME NON-TOBACCO USER [facility] Dec 08, 2015 12:12 PM LIFETIME NON-TOBACCO USER [facility] Dec 30, 2014 01:48 PM LIFETIME NON-TOBACCO USER [facility] Dec 31, 2013 01:19 PM LIFETIME NON-TOBACCO USER [facility] Oct 17, 2006 01:30 PM LIFETIME NON-TOBACCO USER [facility] Advance Directives: All historical and current Section Date Range: From patient's date of to the date document was created. This section includes ALL of a patient's completed or amended [place] Advance and Rescinded Directives. The entries below indicate that a directive exists for the patient, but an actual copy is not included with this document. The data comes from all [place] facilities. Date Advance Directives Provider Source Aug 04, 2017 [facility] Jul 31, 2017 ADVANCE DIRECTIVE DISCUSSION ARNOLDO LUNDBERG [facility] Nov 09, 2003 ADVANCE DIRECTIVE SHARDA STANLEY [facility] Encounter Notes: All associated encounter notes This section contains the clinical notes associated to the Encounter. Date/Time Encounter Note(s) Provider Source Mar 22, 2025 09:40 AM LETTERS: LOCAL TITLE: FOLLOW UP RESULTS LETTER STANDARD TITLE: LETTERS DATE OF NOTE: MAR 22, 2025@09:40 ENTRY DATE: MAR 22, 2025@09:40:12 AUTHOR: FARIHA GRAHAM COSIGNER: URGENCY: STATUS: COMPLETED SUBJECT: anticoag [facility] [address] [place] [address] Mar GRIS VELASCO [address] [place] [id number] Dear : We are following up on your anticoagulant (blood thinner) medication, Apixaban. We noticed it has been a while since you last refilled your [facility] prescription. We wanted to ensure you are still taking your anticoagulant regularly to prevent clotting complications. Please call us at [phone], option 3 if you are taking your anticoagulant differently than prescribed or have since stopped taking it so we can update our records. We do NOT need a call back regarding this letter if you previously had an extra supply of medication and are still taking this medication as prescribed. We hope you are doing well. Thank you for your service. Sincerely, [facility] Team - Phone number: [phone] -option 1 to schedule or reschedule an appointment -option 2 to refill medications or call the phone number on the bottle -option 3 for all other communication Fax number: [phone] Clinic Hours: Saturday-Saturday, 8:00am to 4:00pm (excluding Federal holidays) FARIHA GRAHAM CLINICAL EXPLORATION GEOLOGIST FARIHA GRAHAM [facility]
--- OUTSIDE RECORDS SUMMARY | 2025-04-22 10:56 | XMS_ITS | Encounter Summary ---
Author Name [facility] [place] Organization [place] Address [address] [place] [address] Care Team Providers Care Slab Lifting Supervisor Name Role Phone BRYON EDUIN Primary Care [...] PART B Feb 14, 2002 PART B [id number] [phone] MAGY VELASCO ERT PATIENT MEDICARE (WNR) MEDICARE (M) PART B Feb 14, 2002 PART B [id number] [phone] MAGY VELASCO ERT PATIENT MEDICARE (WNR) MEDICARE (M) PART A Feb 15, 1992 PART A [id number] [phone] MAGY VELASCO ERT PATIENT MEDICARE (WNR) MEDICARE (M) PART A Feb 15, 1992 PART A [id number] [phone] MAGY VELASCO ERT PATIENT Selected Encounter This section includes the information on record at [place] for the Encounter. Date/Time Encounter Type Encounter Description Reason Pro vider Source IHE Encounter Template Text not used by [place] Advance Directives: All historical and current Section Date Range: From patient's date of to the date document was created. This section includes ALL of a patient's completed or amended [place] Advance and Rescinded Directives. The entries below indicate that a directive exists for the patient, but an actual copy is not included with this document. The data comes from all [place] facilities. Date Advance Directives Provider Source Aug 04, 2017 CLINICAL WARNING [facility] Jul 31, 2017 ADVANCE DIRECTIVE DISCUSSION ARNOLDO LUNDBERG [facility] Nov 09, 2003 ADVANCE DIRECTIVE SHARDA STANLEY [facility]
[2025-04-22 10:58] VITALS: BP 138/78; PULSE 78; RESP 18; TEMP 36.8; O2SAT 98; BMI 28.7
--- NOTE | 2025-04-22 11:36 | CRLHL7_ITS ---
For Patients: As a result of the Century Cures Act, medical imaging exams and procedure reports are released immediately into your electronic medical record. You may view this report before your referring provider. If you have questions, please contact your health care provider. INDICATION: Right upper quadrant and lower abdominal discomfort TECHNIQUE: CT abdomen and pelvis acquired with 93 cc Isovue 370 IV contrast. COMPARISON: CT abdomen and pelvis 10/03/2024 FINDINGS: Lower chest: Atelectasis. Aortic valvular calcification. Liver: Cirrhotic morphology. Stable 0.3 centimeter hypodense lesion in segment 7/8 (2/32), which is too small to characterize. Gallbladder and bile ducts: Cholelithiasis. No biliary ductal dilation. Pancreas: Unremarkable. Spleen: Borderline splenomegaly measuring 12.8 centimeters in the craniocaudal dimension. Adrenal glands: Unremarkable. Kidneys: Similar 1.1 centimeter nephrolith in the left renal pelvis. GI tract: Small hiatal hernia. No obstruction. Colonic diverticulosis without diverticulitis. Appendix is not visualized, and there are no secondary signs of inflammation in the right lower quadrant. Vasculature: Abdominal aorta is normal in caliber. Mild aortoiliac atherosclerosis. Mesenteric arteries are patent. Lymph nodes: No lymphadenopathy. Peritoneum/Abdominal Wall: Subcutaneous edema along the anterior abdominal wall, similar to prior. No free air or significant free fluid. Pelvis: Mild prostatomegaly. Incompletely distended bladder. Bones: Diffuse osseous demineralization. Moderate degenerative disease of the spine. Mild osteoarthritis of the hips. IMPRESSION: No acute findings to explain symptoms. Please note that all CT scans at this facility use dose modulation, iterative reconstruction, and/or weight-based dosing when appropriate to reduce radiation dose to as low as reasonably achievable. Dictated by María Wilkinson MD @ 04/22/2025 1:20:14 PM (Electronically Signed)
[2025-04-22 12:07] LABS: Hematocrit 37.2 % (37.0-53.0); Hemoglobin* 12.2 gm/dL (13.5-17.5); Immature Granulocytes Abs Auto 0.03 K/uL (0.00-0.30); Immature Granulocytes Pct Auto 0.5 %; Lymphocytes Absolute Auto 1.61 K/uL (0.90-2.90); Mean Corpuscular HGB Conc 33 gm/dL (32-36); Mean Corpuscular Hemoglobin 32 pg (26-34); Mean Corpuscular Volume 98 fL (80-100); RDW Coefficient of Variation % 13.4 % (11.5-15.5); Red Blood Count 3.79 m/uL (4.30-5.90); White Blood Count* 6.58 K/uL (4.50-11.00)
[2025-04-22 12:10] LABS: Slide Review Reflex No
[2025-04-22 12:19] LABS: Albumin* 4.0 g/dL (3.3-5.0); Chloride* 106 mmol/L (96-114)
[2025-04-22 12:20] LABS: Potassium* 4.8 mmol/L (3.6-5.1); Sodium* 137 mmol/L (135-149)
[2025-04-22 12:22] LABS: Anion Gap 5 mEq/L (7-15); Blood Urea Nitrogen* 28 mg/dL (7-30); Carbon Dioxide* 26 mmol/L (20-32); Creatinine* 1.8 mg/dL (0.5-1.5); Est. Creatinine Clearance* 27.44; Estimated Glomerular Filt Rate 36 ml/min
[2025-04-22 12:23] LABS: Alanine Aminotransferase* 47 U/L (4-50); Alkaline Phosphatase* 56 U/L (40-150); Aspartate Amino Transferase* 49 U/L (12-35); Bilirubin Direct* 0.3 mg/dL (0.0-0.5); Bilirubin Total* 0.9 mg/dL (0.1-1.5); Calcium* 9.1 mg/dL (8.4-10.6); Glucose* 88 mg/dL (60-115); Total Protein* 6.7 g/dL (6.0-8.3)
--- NOTE | 2025-04-22 12:23 | ED.GENADULT ---
HPI - General Adult General Date Seen: 04/22/25 Chief complaint: Diarrhea Stated complaint: stomach pain and diarrhea Time Seen by Provider: 04/22/25 11:27 Source: patient Mode of arrival: ambulatory Limitations: no limitations History of Present Illness HPI narrative: Patient is an 89-year-old male presenting to emergency department presenting to the emergency department for multiple issues. He states he has been having on and off diarrhea for the past 3 weeks and today had another episode we had 3 diarrhea stools today. Has also been having some lower abdominal discomfort insert the use having some indigestion so started taking Pepto-Bismol. After he started the Pepto-Bismol he notice some dark stools. States he did not notice any dark stools prior to the Pepto-Bismol. He also has some right upper quadrant discomfort that he says feels like gas. Was previously told he has cholelithiasis but was recommended against surgery. He denies fevers, chills, chest pain, shortness of breath, headache, vision changes, weakness, numbness. States he felt like diarrhea may have gotten worse after his steroid injection a couple weeks ago. States that this is 5th steroid injection. Denies any recent surgeries. Denies any recent travel. Only previous abdominal surgery was appendicitis. Related Data Home Medications ?Medication ?Instructions ?Recorded ?Confirmed Vitamin D 50 mcg PO 09/16/23 10/07/24 amiodarone 200 mg PO DAILY 09/16/23 10/07/24 amlodipine 10 mg PO DAILY 09/16/23 10/07/24 apixaban 2.5 mg PO .q12 09/16/23 10/07/24 gabapentin 400 mg PO BID 09/16/23 10/07/24 lisinopril 20 mg PO DAILY 09/16/23 10/07/24 multivitamin 09/16/23 10/07/24 tamsulosin 0.4 mg PO DAILY 09/16/23 10/07/24 coenzyme Q10 100 mg capsule 200 mg PO DAILY 10/03/24 10/07/24 (CoQ-10) calcium carbonate 1,000 mg PO QDAY 10/07/24 10/07/24 loratadine 10 mg tablet 10 mg PO QDAY 10/07/24 10/07/24 Allergies Allergy/AdvReac Type Severity Reaction Status Date / Time penicillin G procaine Allergy Mild Rash Verified 04/22/25 13:10 Review of Systems Status of ROS: Reports: 10 or more systems reviewed and unremarkable except as noted in History and below PFSH PFSH Social History Smoking Status: Never smoker Do you use any of these nicotine containing products: None Second hand tobacco smoke exposure: No How often do you have a drink containing alcohol: monthly or less How many standard drinks containing alcohol do you have on a typical day: 1 or 2 How often do you have six or more drinks on one occasion: Never AUDIT-C Alcohol total score: 1 Non-prescribed substance use: denies use service: Yes Exam Narrative: Exam Narrative: Const: Well-nourished, Well-developed, in no distress Eyes: PERRL, no conjunctival injection, and symmetrical lids HENT: Atraumatic external nose and ears. Moist mucous membranes. Neck: Symmetric, trachea midline, No thyromegaly. CVS: RRR, No murmurs or gallops. Peripheral pulses 2+ and equal in all extremities RESP: Unlabored respiratory effort. Clear to auscultation bilaterally. GI: Nontender/Nondistended, No rebound or guarding. MSK:Extremities w/o deformity, Normal Active ROM Skin: Warm, Dry. No rashes or lesions. Neuro: Normal Muscle tone, No focal neurological deficits. Psych: Awake, Alert, & Oriented x3. Appropriate mood and affect. Const: Vital Signs, click to edit/add: Vital Signs - 24 hr 04/22/25 10:58 04/22/25 14:55 Temperature 98.2 F Pulse Rate [Pulse Oximeter] 78 93 Respiratory Rate 18 16 Blood Pressure [Ri ght Upper Arm] 138/78 143/92 H Pulse Oximetry 98 99 Oxygen Delivery Me thod Room Air Room Air Course Vital Signs Vital signs: Initial Vital Signs Temperature 98.2 F 04/22/25 10:58 Temperature Source Oral 04/22/25 10:58 Pulse Rate 78 04/22/25 10:58 Respiratory Rate 18 04/22/25 10:58 Blood Pressure 138/78 04/22/25 10:58 Blood Pressure Mean 98 04/22/25 10:58 Blood Pressure Position Sitting 04/22/25 10:58 Pulse Oximetry 98 04/22/25 10:58 Oxygen Delivery Method Room Air 04/22/25 10:58 Vital Signs Temperature 98.2 F 04/22/25 10:58 Pulse Rate 78 04/22/25 10:58 Respiratory Rate 18 04/22/25 10:58 Blood Pressure 138/78 04/22/25 10:58 Pulse Oximetry 98 04/22/25 10:58 Oxygen Delivery Method Room Air 04/22/25 10:58 Temperature 98.2 F 04/22/25 10:58 Pulse Rate 93 04/22/25 14:55 Respiratory Rate 16 04/22/25 14:55 Blood Pressure 143/92 H 04/22/25 14:55 Pulse Oximetry 99 04/22/25 14:55 Oxygen Delivery Method Room Air 04/22/25 14:55 Medical Decision Making MDM Narrative Medical decision making narrative: Patient is an 89-year-old male presenting to the emergency department for multiple complaints. One of his complaints include dark colored stool but this only started after he started taking the Pepto-Bismol and seems unlikely to be a GI bleed at this time. Do not believe further workup with this is necessary. Does have some abdominal discomfort both the lower abdomen and right upper quadrant. Has known cholelithiasis. Will do CT scan for better evaluation. This will help check for signs of diverticulitis, colitis, gallbladder liver disease. May also help show signs of diarrheal disease CBC, CMP, urinalysis all ordered. Creatinine and is at 1.8 which is roughly around his baseline. Rest was lab work shows no concerning findings. CT scan shows no concerning findings. We tried to get a stool sample but he was in the ED for over 4 hours and could not provide a stool sample. He states this is the longest today he has gone without diarrhea. At this point I do believe it is safe to discharge him home with follow-up with his PCP. He agrees with this plan. Lab Data Labs: Lab Results 04/22/25 04/22/25 Range/Units 12:00 14:11 WBC 6.58 (4.50-11.00) K/uL RBC 3.79 L (4.30-5.90) m/uL Hgb 12.2 L (13.5-17.5) gm/dL Hct 37.2 (37.0-53.0) % MCV 98 (80-100) fL MCH 32 (26-34) pg MCHC 33 (32-36) gm/dL RDW Coeff of Simon 13.4 (11.5-15.5) % Plt Count 167 (140-440) K/uL Neut % (Auto) 61.6 (42.0-72.0) % Lymph % (Auto) 24.5 (20-44) % [place] % (Auto) 10.6 (0.0-11.0) % Eos % (Auto) 2.3 (0.0-7.0) % Baso % (Auto) 0.5 (0.0-3.0) % Neut # (Auto) 4.06 (1.7-7.0) K/uL Lymph # (Auto) 1.61 (0.90-2.90) K/uL [place] # (Auto) 0.70 (0.00-0.90) K/UL Eos # (Auto) 0.15 (0.00-0.50) K/uL Baso # (Auto) 0.03 (0.00-0.30) K/uL Abs Immat Gran (auto) 0.03 (0.00-0.30) K/uL Imm/Tot Granulo (auto) 0.5 % Sodium 137 (135-149) mmol/L Potassium 4.8 (3.6-5.1) mmol/L Chloride 106 (96-114) mmol/L Carbon Dioxide 26 (20-32) mmol/L Anion Gap 5 L (7-15) mEq/L BUN 28 (7-30) mg/dL Creatinine 1.8 H (0.5-1.5) mg/dL Estimated Creat Clear 27.44 Estimated GFR 36 ml/min Glucose 88 (60-115) mg/dL Calcium 9.1 (8.4-10.6) mg/dL Magnesium 1.9 (1.5-2.6) mg/dL Total Bilirubin 0.9 (0.1-1.5) mg/dL Direct Bilirubin 0.3 (0.0-0.5) mg/dL AST 49 H (12-35) U/L ALT 47 (4-50) U/L Alkaline Phosphatase 56 (40-150) U/L Total Protein 6.7 (6.0-8.3) g/dL Albumin 4.0 (3.3-5.0) g/dL Urine Color Yellow (Yellow) Urine Appearance Clear (Clear) Urine pH 7.0 (5.0-8.5) Ur Specific [employer] 1.010 (1.000-1.030) Urine Protein Negative (Negative) Urine Glucose (UA) Negative (Negative) Urine Ketones Negative (Negative) Urine Blood Trace-lysed A (Negative) Urine Nitrite Negative (Negative) Urine Bilirubin Negative (Negative) Urine Urobilinogen 0.2 (0.2-1.0) Ur Leukocyte Esterase Negative (Negative) Urine RBC 0-2 (0-2) Urine WBC 0-2 (0-5) Ur Squamous Epith Cells Few (None-Few) Urine Bacteria Few A (None) Imaging Data CT scan abdomen pelvis: Attestation: I have reviewed the pertinent imaging results. Radiologist's impression: No acute findings to explain symptoms. Please note that all CT scans at this facility use dose modulation, iterative reconstruction, and/or weight-based dosing when appropriate to reduce radiation dose to as low as reasonably achievable. Dictated by María Wilkinson MD @ 04/22/2025 1:20:14 PM Discharge Plan Discharge Clinical Impression: Diarrhea Qualifiers: Diarrhea type: unspecified type Qualified Code(s): R19.7 - Diarrhea, unspecified Patient Disposition: Home, Self-Care Condition: Stable Instructions: Acute Diarrhea (ED) Additional Instructions: I recommend close follow-up with the primary care provider. Return to the emergency department for new or worsening symptoms. Prescriptions: No Action loratadine 10 mg tablet 10 mg PO QDAY calcium carbonate 500 mg calcium (1,250 mg) tablet 1,000 mg PO QDAY gabapentin 400 mg PO BID amlodipine 10 mg PO DAILY lisinopril 20 mg PO DAILY tamsulosin 0.4 mg PO DAILY amiodarone 200 mg PO DAILY multivitamin Vitamin D 50 mcg PO apixaban 2.5 mg PO .q12 coenzyme Q10 [CoQ-10] 100 mg capsule 200 mg PO DAILY Follow Up/Referrals: Provider,Not a Local [Primary Care Provider, Family Practice] Stand Alone Forms: MyHealth Info Instructions
[2025-04-22 14:17] LABS: Appearance Urine Clear (Clear)
[2025-04-22 14:55] VITALS: BP 143/92; PULSE 93; RESP 16; O2SAT 99
== END 2025-04-22 15:11 | disposition home or self-care (01) ==
PROVIDERS: Emergency Provider Student in an Organized Health Care Education/Training Program
DX: R19.7 Diarrhea, unspecified (principal)
CPT/HCPCS: 36415; 74177; 80048; 80076; 81001; 83735; 85025; 87086; 87493; 99284; Q9967